=== PATIENT | male | born 1935 | race Caucasian/White ===

== ENCOUNTER → 2016-10-22 | Outpatient (CLI) | payer BC ==
[~2016-10-22] MED LIST: AMOX500C3 PO; ASPI325T39 PO; ATOR-22 PO; CHOL100010 PO; GLC/500 PO; POLY335019 PO
[2016-10-22 13:36] LABS: BASO % 0.2 %; BASO ABS # 0.01 K/uL (0-0.2); COMPLETE YES; EOS % 2.9 %; HEMATOCRIT 46.1 % (42-52); IG% 0.2 %; LYMPH % 25.9 %; LYMPH ABS # 1.45 K/uL (1.2-3.4); MEAN CELL VOLUME 102.7 fL (80-100); MEAN CORPUSCULAR HEMOGLOBIN 34.3 pg (25-34); MEAN CORPUSCULAR HGB CONC 33.4 g/dl (32-36); MONO % 8.6 %; NEUT % 62.2 %; PLATELET COUNT 155 K/uL (130-400); RED BLOOD COUNT 4.49 M/uL (4.7-6.1)
[2016-10-22 13:55] LABS: ESTIMATED AVERAGE GLUCOSE 134 mg/dl; HA1C FLAG Normal (Normal)
[2016-10-22 14:15] LABS: ALKALINE PHOSPHATASE 81 U/L (45-117); ALT/SGPT 20 U/L (12-78); AST/SGOT 16 U/L (15-37); BLOOD UREA NITROGEN 18 mg/dl (7-18); BUN/CREATININE RATIO 22.6 (10-20); CARBON DIOXIDE 28 mmol/L (21-32); CHLORIDE 106 mmol/L (98-107); CHOLESTEROL 127 mg/dl (0-200); CHOLESTEROL/HDL RATIO 1.9; CREATININE 0.78 mg/dl (0.60-1.40); GLUCOSE 124 mg/dl (70-99); HDL CHOLESTEROL 67 mg/dl; LDL CHOLESTEROL CALCULATED 51 mg/dl; POTASSIUM 4.2 mmol/L (3.5-5.1); SODIUM 141 mmol/L (136-145); TRIGLYCERIDES 46 mg/dl (0-150); VERY LOW DENSITY LIPOPROT CALC 9 mg/dl
[2016-10-22 14:25] LABS: ALB/GLOB RATIO 1.4 (0.9-2)
--- NOTE | 2016-10-27 13:51 | CODING QUERY MEDICAL NECESSITY ---
SUPPORTING DIAGNOSIS NEEDED Dr. Garcia, A supporting diagnosis is required for the test/procedure performed on this patient in order for us to be reimbursed by the patient's insurance. Please provide a supporting diagnosis for the following test/procedure listed below next to the test name along with your signature. *If there is no additional diagnosis for this patient that would support the following test/procedure please document that below next to the test/procedure. Test(s)/Procedure(s) that require a supporting diagnosis: * ([id number]) B12 VITAMIN LEVEL DIAGNOSIS: DATE OF SERVICE: 10/22/16 Provider Signature: Date: Thank you Jem Rodriguez [place] Information Management Once completed, please kindly fax back to [phone] For questions please call [phone]
== END | disposition home or self-care (01) ==
LOC: C.LABBC 09:57
PROVIDERS: ATTEND Internal Medicine Geriatric Medicine
DX: E11.9 Type 2 diabetes mellitus without complications (principal); E78.5 Hyperlipidemia, unspecified; R33.9 Retention of urine, unspecified; I25.10 Atherosclerotic heart disease of native coronary artery without angina pectoris; E55.9 Vitamin D deficiency, unspecified; K21.9 Gastro-esophageal reflux disease without esophagitis

== ENCOUNTER → 2017-11-09 | Outpatient (CLI) | payer BC ==
[2017-11-09 13:36] LABS: BASO % 0.2 %; BASO ABS # 0.01 K/uL (0-0.2); EOS ABS # 0.12 K/uL (0-0.5); HEMATOCRIT 47.7 % (42-52); HEMOGLOBIN 15.7 g/dL (14.0-18.0); IG# 0.02 K/uL (0.00-0.02); LYMPH % 30.2 %; LYMPH ABS # 1.79 K/uL (1.2-3.4); MEAN CELL VOLUME 101.9 fL (80-100); MEAN CORPUSCULAR HEMOGLOBIN 33.5 pg (25-34); MEAN CORPUSCULAR HGB CONC 32.9 g/dl (32-36); MEAN PLATELET VOLUME 10.3 fL (7.4-10.4); MONO % 6.1 %; MONO ABS # 0.36 K/uL (0.11-0.59); NEUT % 61.2 %; NEUT ABS # 3.63 K/uL (1.4-6.5); PLATELET COUNT 175 K/uL (130-400); RED CELL DISTRIBUTION WIDTH CV 12.9 % (11.5-14.5); RED CELL DISTRIBUTION WIDTH SD 47.9 fL (36.4-46.3); WHITE BLOOD COUNT 5.93 K/uL (4.8-10.8)
[2017-11-09 14:09] LABS: HEMOGLOBIN A1C 6.4 % (4.5-5.6)
[2017-11-09 14:15] LABS: ALBUMIN 3.9 gm/dl (3.4-5.0); ALT/SGPT 24 U/L (12-78); AST/SGOT 21 U/L (15-37); BLOOD UREA NITROGEN 21 mg/dl (7-18); CALCIUM 8.9 mg/dl (8.5-10.1); CARBON DIOXIDE 26 mmol/L (21-32); CHOLESTEROL 140 mg/dl (0-200); CREATININE 0.89 mg/dl (0.60-1.40); GLUCOSE 106 mg/dl (70-99); POTASSIUM 4.3 mmol/L (3.5-5.1); SODIUM 138 mmol/L (136-145)
[2017-11-09 14:26] LABS: ALKALINE PHOSPHATASE 89 U/L (45-117); LDL CHOLESTEROL CALCULATED 68 mg/dl; TOTAL PROTEIN 6.9 gm/dl (6.4-8.2)
== END | disposition home or self-care (01) ==
LOC: C.LABBC 11:13
PROVIDERS: ATTEND Internal Medicine Geriatric Medicine
DX: E11.9 Type 2 diabetes mellitus without complications (principal); I25.10 Atherosclerotic heart disease of native coronary artery without angina pectoris; M19.90 Unspecified osteoarthritis, unspecified site; Z95.2 Presence of prosthetic heart valve

== ENCOUNTER → 2018-02-18 | Outpatient (CLI) | payer BC ==
--- NOTE | 2018-02-18 12:34 | DIAGNOSTIC IMAGING REPORT ---
(LUIS MANUEL/BLAD)RETROPERITON COMP HISTORY: 82 years-old Male N28.1 Renal [id number] follow-up study in a patient with left renal cyst COMPARISON: Renal ultrasound 02/21/2016 TECHNIQUE: Multiple real-time sonographic images of the kidneys and bladder were obtained assessing grayscale appearance and color flow FINDINGS: Right kidney measures 10.4 cm in length and demonstrates mildly increased echogenicity of the renal parenchyma along with mild cortical thinning. No right-sided renal calculi, hydronephrosis or suspicious mass lesions. Left kidney measures 10.7 cm in length and is also mildly echogenic with mild diffuse cortical thinning. Previous noted cyst of the left kidney is not definitively seen on today's study. No left-sided renal calculi, hydronephrosis or suspicious mass lesions. Bilateral ureteral jets are noted. Prostamegaly causes mass effect upon the floor of the bladder. Mild wall thickening of the bladder, 4 mm with suggested trabeculation. IMPRESSION: 1. Suggested medical renal disease without renal calculi or hydronephrosis. 2. Previously noted cyst of the left kidney seen on study from 2015 is no longer identified. 3. Prostamegaly with bladder wall thickening and trabeculation suggests sequela of chronic bladder outlet obstruction. Correlate with urinalysis to exclude cystitis. The above report was generated using voice recognition software. It may contain grammatical, syntax or spelling errors. Electronically signed by: Tyler Haider M.D. 02/18/2018 12:33 PM Dictated Date/Time: 02/18/2018 12:30 PM
== END | disposition home or self-care (01) ==
LOC: C.ULTR 11:36
PROVIDERS: ATTEND Urology
DX: N40.0 Benign prostatic hyperplasia without lower urinary tract symptoms (principal)

== ENCOUNTER → 2018-03-08 | Outpatient (CLI) | payer BC | END | disposition home or self-care (01) | LOC: C.PATHSPEC 17:35 | PROVIDERS: ATTEND Family Medicine Adult Medicine | DX: L98.9 Disorder of the skin and subcutaneous tissue, unspecified (principal) ==

== ENCOUNTER 2023-04-27 07:31 | Observation (INO) ==
[~2023-04-27 07:31] MED LIST changes: -AMOX500C3 PO; -ASPI325T39 PO; -ATOR-22 PO; +BACITRACIN OINT 14 GM TUBE ONE; -CHOL100010 PO; -GLC/500 PO; +LIDOCAINE 1% LOCAL 20 ML VIAL ONE; -POLY335019 PO; +VANCOMYCIN HCL 1000MG/20ML VIAL ONE; +WATER, STERILE FOR INJ 10 ML VIAL ONE
[2023-04-27] MEDS ORDERED: MIDAZOLAM HCL 5 MG/ML 1 ML VIAL ONE (08:20)
[2023-04-27] MEDS ORDERED: ceFAZolin 330 MG/ML 1 GM VIAL ONE (08:20)
[2023-04-27] MEDS ORDERED: fentaNYL citrate PF 100 MCG/2 ML VIAL ONE (08:20)
--- NOTE | 2023-04-27 08:32 | History & Physical Bridge Note ---
Date of Service April 27, 2023 History & Physical Bridge Note I have examined the patient, reviewed the History & Physical and in the interval since the performance of the History & Physical I have noted the following changes of clinical significance: no changes noted. I reviewed the indications, procedure, risks and alternatives with the patient, and answered all questions. Patient understands and agrees to the procedure. Consent obtained. I also reviewed the risks and use of sedation, patient understands and consent obtained.
--- NOTE | 2023-04-27 08:34 | Pre Anesthesia Assessment ---
Date of Service April 27, 2023 Pre Sedation Assessment Vital Signs Pulse Resp BP Pulse Ox O2 Del Method 04/27/23 07:44 66 20 134/82 96 Room Air Cardiovascular + irregularly irregular no murmur Respiratory normal respiratory effort, lungs clear to auscultation Pre-Sedation Airway Assessment Smoking Status: Never smoker Short, Thick Neck: No Thyromental Distance: > or= 3.5 Finger Breadths Oral Cavity: + Dentures Mallampati Class: III ASA: ASA3 NPO Status Date of Last Intake of Fluids: 04/26/23 Time of Last Intake of Fluids: 23:50 Date of Last Intake of Solid Food: 04/26/23 Time of Last Intake of Solid Foods: 23:50 Procedure Planning Contraindications for Sedation: none Current Medications Reviewed: Yes Notes The planned sedation has been discussed with the patient. Informed Consent was obtained. I have identified the patient, determined the appropriateness of sedation and have assessed the patient immediately prior to the procedure. All medicine(s) and interventions are by my order.
[2023-04-27] MEDS ORDERED: KETOROLAC TROMETHAMINE 10 MG TABLET PO PRN (10:11)
[2023-04-27] MEDS ORDERED: ACETAMINOPHEN 325 MG TAB PO PRN (10:11)
--- NOTE | 2023-04-27 10:11 | Electrophysiology Report ---
Date of Service April 27, 2023 Electrophysiology Procedure Electrophysiology Procedure Report Preoperative diagnosis: Severe bradycardia Postoperative diagnosis: Same Procedure: Left subclavian venogram Dual-chamber left bundle branch pacemaker implantation Surgeon: Chema Blood MD Estimated blood loss: 20 cc Complications: None Disposition: Outreach Representative recovery Procedure details: After obtaining informed consent for the procedure, the patient was brought to the laboratory and prepped and draped in the standard sterile manner. Dye was injected the left arm IV site to opacify the left subclavian vein. The subclavian vein was identified and found to be free of obstruction. The left prepectoral region was anesthetized with 1% lidocaine local anesthetic and left axillary venipuncture was performed by percutaneous technique and a guidewire placed through the left subclavian vein into the superior vena cava. The area was further infiltrated with 1% lidocaine local anesthetic and a 5 cm incision was made parallel to the left clavicle and 2 cm below it and carried down to the anterior pectoralis fascia. A pacemaker pocket was formed by blunt dissection anterior to the pectoralis fascia and a vancomycin-soaked sponge was placed in the pocket. An 8.5 [place] Medtronic lead introducer was placed over the guidewire into the left subclavian vein, the dilator and guidewire were removed and a bipolar active fixation steroid tipped atrial lead was advanced through the introducer into the superior vena cava. A guidewire was placed through the introducer and the introducer was stripped from the lead and guidewire. A 7 [place] Medtronic lead introducer was placed over the guidewire into the left subclavian vein, the dilator and guidewire were removed. A C315 His 02 septal sheath was advanced through the introducer over a guidewire and advanced into the right ventricular outflow tract. The guidewire and dilator were removed and the sheath was positioned in a mid septal location. A bipolar active fixation steroid tipped ventricular lead was advanced through the introducer and rotated to advance the screw into the septum. Pacing and sensing thresholds were evaluated in bipolar configuration and are noted on the data sheet. The septal sheath was stripped away from the lead. A guidewire was placed back through the introducer and the introducer was removed over the the guidewire. The atrial lead was positioned in the region of the atrial appendage, which did not seem to be present, and the screw extended fixing the lead in position. Sensing threshold was evaluated in bipolar configuration (the patient was in atrial fibrillation and pacing cannot be evaluated) and is recorded on the implant data sheet. Once the leads were in position they were attached to the anterior pectoralis fascia using 2 sutures of 2-0 silk around each lead collar. The vancomycin soaked sponge was removed from the pocket, hemostasis was obtained, the pacemaker was attached to the leads and placed in the pocket with the leads coiled beneath it. The incision was closed with a running double subcutaneous closure of 3-0 Vicryl absorbable suture, followed by running subcuticular skin closure of 4-0 Vicryl absorbable suture. Bacitracin ointment was placed on the incision and a dressing applied. [facility] [place] Electrophysiology codes Indication for Procedure (1) Bradycardia: Pacing Procedure 1: Pacin Insert/Replace Pacer A & V Miscellaneous Procedures Procedure 1: EP Miscellaneous: 95755 Contrast injection for venography Procedure 2: EP Miscellaneous: 71905-64 Vengraphy, extremity PG Moderate Sedation Codes Moderate Sedation Codes Procedure 1: Sedation/Anesthesia: 57318 Mod Sedation by the same physician;Init15 Min Child Age 5 & Up Procedure 2: Sedation/Anesthesia: 77820 Mod Sedation by the same physician; Ea [id number] Minutes
--- NOTE | 2023-04-27 14:05 | Post Anesthesia Assessment ---
Date of Service April 27, 2023 Post Sedation Assessment Vital Signs Pulse Resp BP Pulse Ox O2 Del Method 04/27/23 12:30 78 16 128/89 96 Room Air 04/27/23 12:00 65 16 114/75 96 Room Air 04/27/23 11:30 64 16 115/72 96 Room Air 04/27/23 11:00 65 16 94/61 L 96 Room Air 04/27/23 10:45 64 16 98/65 L 96 Room Air 04/27/23 10:30 68 16 107/67 96 Room Air 04/27/23 10:15 60 16 118/76 96 Room Air 04/27/23 07:44 66 20 134/82 96 Room Air Recovery Score Activity: Moves 4 extremities Respiration: Deep Breath/Cough Circulation: +/-20% PreAnes Value Consciousness: Fully Awake Oxygen Saturation: > 92% On Room Air Post Anesthesia Score: 10 Discharge Sedation Level of Care: Fast Track Phase II Post Sedation Plan On clinical assessment, the patient appears to have tolerated the sedation without complications. Patient is recovering as anticipated. Patient will continue to be monitored by nursing and may be discharged when sedation discharge criteria are met per below protocol. Upon Completions of procedure up to 15 minutes continue every 5 minute vital signs and the P.A.R. score; then discharge to a Phase I or Fast Track to Phase II per the following guidelines: * Discharge Patient to appropriate Phase II area if PAR is 8 or greater or return to pre- procedure baseline. The post - procedure orders will be as directed. * If PAR score is less than 8 or not return to pre-procedure baseline then patient will follow Phase I monitoring till PAR is reached for Phase II. The Phase I may be done in procedure room or may call to secure a Phase I area. * If naloxone or flumazenil are used for reversal, hold in Phase I for continued monitoring from when last reversal dose was given for a minimum of 60 minutes or longer pending the nurse and/or physician discretion of patient condition before discharge to Phase II. Please call the Sedation Physician to re-evaluate and complete post-note for discharge to Phase II area. Do NOT discharge from procedure sedation or Phase 1 until post- sedation evaluation note is complete by procedure /sedation MD Sedation Discharge Instructions to be given to the patient at discharge to home.
--- NOTE | 2023-04-27 15:50 | Electrocardiogram Report ---
Test Reason : Blood Pressure : / mmHG Vent. Rate : 071 BPM Atrial Rate : 267 BPM P-R Int : 000 ms QRS Dur : 084 ms QT Int : 408 ms P-R-T Axes : 000 003 049 degrees QTc Int : 443 ms Atrial fibrillation with ventricular-paced complexes Biventricular pacemaker detected Septal infarct (cited on or before 12-MAR-2023) Abnormal ECG When compared with ECG of 12-MAR-2023 09:55, (unconfirmed) Electronic ventricular pacemaker now present Confirmed by Dany Mobley ([id number]) on 04/27/2023 3:50:36 PM Referred By: Chema Blood Confirmed By:Dany Mobley
--- NOTE | 2023-04-28 08:19 | XRay Report ---
XR chest 2V PA/lateral HISTORY: Status post pacemaker placement. EXACT TIME ORDERED Evaluate for pneumothorax and l COMPARISON: Chest 05/13/2018. FINDINGS: Interval placement left-sided dual-chamber pacemaker. The leads appear intact. No pneumotho rax. There are poststernotomy changes and cardiac valve prosthesis. Heart is mildly enlarged. There i s mild central pulmonary vascular congestion without overt edema. No pleural effusions. No focal lung consolidations to suggest pneumonia. IMPRESSION: 1. Interval placement of a left-sided dual-chamber pacemaker. No pneumothorax. 2. Cardiomegaly and mild pulmonary vascular congestion. ACT 112: Negative or not required by law. Electronically signed by: Shimon Gallardo M.D. 04/28/2023 8:18 AM
[2023-04-28] MEDS ORDERED: DOCUSATE SODIUM 100 MG CAP PO SCH (09:00)
[2023-04-28] MEDS ORDERED: APIXABAN 5 MG TABLET PO SCH (09:00)
[2023-04-28] MEDS ORDERED: lisinopril 2.5 MG TAB PO SCH (09:00)
[2023-04-28] MEDS ORDERED: LORATADINE 10 MG TAB PO SCH (09:00)
[2023-04-28] MEDS ORDERED: ATORVASTATIN 20 MG TAB PO SCH (09:00)
[2023-04-28] MEDS ORDERED: CYANOCOBALAMIN (B-12) 2,500 MCG TABLET PO SCH (09:00)
[2023-04-28] MEDS ORDERED: FINASTERIDE 5 MG TAB PO SCH (09:00)
--- NOTE | 2023-04-28 09:20 | Cardiology Progress Note ---
Date of Service April 28, 2023 Assessment & Plan (1) Status post placement of cardiac pacemaker: Plan: 1. Postop day #1: The pacer is working well, the site looks good and the leads are in good position on x-ray. He is stable for discharge today. Admission and Anticipated Discharge Date Admission Date: April 27, 2023 Subjective He is feeling well today, minimal incisional discomfort, no chest pain or shortness of breath. Physical Exam Physical Exam: The incision is clean and dry, no ecchymosis, erythema or swelling. Lungs are clear Cardiac rhythm is regular with no rub Results & Data Vital Signs (Past 12 Hours) Vital Signs Temp Pulse Pulse Resp BP Pulse Ox O2 Del Method 04/28/23 07:55 37.0 C 64 19 112/75 95 Room Air 04/27/23 23:30 72 04/28/23 02:42 36.7 C 60 18 128/76 96 Room Air 04/27/23 22:53 36.5 C 68 18 125/72 96 Room Air Diagnostic Findings 1. Postop ECG: Atrial fibrillation, appropriate intermittent ventricular pacing. 2. Telemetry: Normal pacemaker function 3. Pacemaker evaluation: Excellent pacing and sensing characteristics. 4. Chest x-ray: Good lead position, no pneumothorax PG Care Time/CCT Total # of Minutes Spent Total Time Spent with Patient: Total time spent is greater than 50% in coordination of care (as documented) at patient's floor/unit and/or counseling patient: Coding Level of Care Code 72245 Post Operative Follow-Up Diagnoses Status post placement of cardiac pacemaker Z95.0 CPT Codes Dual Lead Pacemaker System - 17217 ([id number])
--- NOTE | 2023-04-28 09:48 | Discharge Summary ---
Date of Service April 28, 2023 Admission HPI Per Admitting Provider This is an 87-year-old male who has a history of diabetes mellitus, osteoarthritis, BPH as well as coronary disease and aortic stenosis. 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 around 2007. He has done well clinically since then and to my knowledge does not follow-up with a local autism teacher. To my knowledge she has no prior history of atrial fibrillation. He had been having vague symptoms which could represent symptomatic bradycardia and he had been identified as having second-degree AV block therefore he was evaluated for the need for a pacemaker in August 2022. I discussed symptoms with him and it was unclear. He reported having rare episodes of lighth eadedness, when pressed he told me it happens every several months, suggesting that he had only had a few episodes but it sounded as though he had more than that. He described these episodes as occurring with strenuous activity, the example he gives is shopping where after some time he will feel as though he should sit down but is able to continue shopping. His evaluation included an electrocardiogram on July 25, 2022 which shows sinus rhythm with premature atrial beats and premature ventricular beats and first-degree AV block. An echocardiogram done August 14, 2022 shows normal left ventricular size and function with an ejection fraction of 55 to 60%, mild concentric left ventricular hypertrophy and a bioprosthetic aortic valve which is functioning properly. He does have mild mitral regurgitation. 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 The heart rate ranged from 28 bpm (2-1 AV block in the morning) to 84 bpm with an average of 56 bpm. He was in AV block for about 18% of the recording with the longest pause being 2.9 seconds. He had 4.1% PVCs. He tells me that he did not have symptoms of lightheadedness while wearing the monitor. With minimal and vague symptoms and no clear bradycardia requiring pacemaker implantation we elected to follow with repeat monitoring. An electrocardiogram done March 12, 2023 showed atrial fibrillation with a controlled ventricular response, we had not identified atrial fibrillation before but he was asymptomatic, had a history of frequent premature beats and perhaps he had paroxysmal atrial fibrillation and with an irregular rhythm it may not have been recognized on exam. He was started on Eliquis 5 mg twice a day and a Holter monitor was arranged. A Holter monitor was worn from March 12, 2023 through March 16, 2023, the rhythm was atrial fibrillation throughout with the heart rate ranging from 30 to 154 bpm with an average of 64. There were 124 pauses with the longest being 6.3 seconds at 6:30 in the morning. There were no clear symptoms related to these. There were also very frequent premature ventricular beats (15%) with 200 ventricular runs with the longest being 5 beats. It was recommended that he have a pacemaker implanted, and he is agreeable. He has evidently been feeling relatively well from the cardiovascular standpoint although he notes that he has intermittent elevated blood pressure and he has had some difficulty with his B12. 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 He has had no presyncope or syncope. He does not have an awareness of his atrial fibrillation but is doing well on Eliquis without difficulty with bleeding. Admission Exam (Per Admitting) Constitutional Constitutional: Alert, cooperative and in no distress. HEENT: Unremarkable Neck: No jugular venous distention, carotid pulses are normal and equal bilaterally without bruits. Pulmonary: Clear to auscultation bilaterally. Cardiac: Irregular rhythm with a soft crescendo decrescendo murmur at the base, no gallop or rub. Abdomen: Soft, nontender with normal bowel sounds. Extremities: +1 bilateral pretibial edema. Neurologic: No focal findings. Gait is steady with the use of a walker. Skin: No rash, ecchymoses or petechiae. His extremities show signs of chronic venous stasis. Discharge Data Procedures Performed Operation Date: 04/27/23 08:00 Actual Procedures p Pacer with A/V Leads (Dual) - Chema lBood MD s Venogram, Unilateral - Chema Blood MD Hospital Course (1) Bradycardia: Plan With significant bradycardia and risk for loss of consciousness he had a dual- chamber pacemaker implanted on April 27, 2023 without difficulty. This morning he is doing well, he has no difficulty at the incision and he feels well. He is in atrial fibrillation, dual-chamber pacemaker was chosen to allow return to sinus rhythm in the future but that will require a month of anticoagulation before we would consider cardioversion. He is stable for discharge. Coding Level of Care Code None Diagnoses Bradycardia R00.1
== END 2023-04-28 10:42 | disposition home or self-care (01) ==
LOC: 2S 07:31 → EP 07:31

== ENCOUNTER 2023-05-05 02:26 | Observation (INO) ==
[2023-05-05 03:17] LABS: Albumin Globulin Ratio 1.7 (0.9-2); Albumin Level 4.3 gm/dl (3.4-5.0); BUN Creatinine Ratio 22.5 (10-20); Bilirubin,Total 0.9 mg/dl (0.2-1.0); Calcium 9.4 mg/dl (8.6-10.3); Creatinine Clr Calc Pharmacy 54.9 ml/min; Est GFR (African American) 75.7 ml/min; Est GFR (Non-African American) 65.3 ml/min; Globulin 2.6 gm/dl (2.5-4.0); Magnesium 1.8 mg/dl (1.7-2.4); Potassium 4.8 mmol/L (3.5-5.1); Total Protein 6.9 gm/dl (6.0-8.3)
[2023-05-05 03:23] LABS: Troponin I High Sensitivity 10.4 pg/ml (0-20)
[2023-05-05 03:29] LABS: Basophils # (auto) 0.03 K/uL (0.00-0.20); Basophils % (auto) 0.3 %; Eosinophils # (auto) 0.02 K/uL (0.00-0.50); Eosinophils % (auto) 0.2 %; Hematocrit (blood only) 43.2 % (42.0-52.0); Hemoglobin 14.5 g/dl (14.0-18.0); Immature Granulocytes # (auto) 0.03 K/uL (0.01-0.20); Immature Granulocytes % (auto) 0.3 %; Lymphocytes # (auto) 0.74 K/uL (1.20-3.40); Lymphocytes % (auto) 7.3 %; Mean Corpuscular Hemoglobin 33.5 pg (25.0-34.0); Mean Corpuscular Hgb Conc 33.6 g/dL (32.0-36.0); Mean Corpuscular Volume 99.8 fL (80.0-100.0); Mean Platelet Volume 10.2 fL (9.4-12.4); Monocytes # (auto) 0.64 K/uL (0.11-0.59); Monocytes % (auto) 6.3 %; Neutrophils # (auto) 8.72 K/uL (1.40-6.50); Neutrophils % (auto) 85.6 %; Platelet Count 146 K/uL (130-400); RDW Coefficient of Variation 13.1 % (11.5-14.5); RDW Standard Deviation 48.1 fL (36.4-46.3); Red Blood Count 4.33 M/uL (4.70-6.10); White Blood Count 10.18 K/ul (4.8-10.8)
[2023-05-05 03:32] LABS: Thyroid Stimulating Hormone 5.941 uIu/ml (0.300-4.500)
[2023-05-05 04:09] LABS: T4 Free Thyroxine 0.77 ng/dl (0.61-1.60)
--- NOTE | 2023-05-05 06:06 | History & Physical Report ---
Date of Service May 05, 2023 Assessment & Plan (1) Ambulatory dysfunction: Plan: -PT/OT evaluation -Case management evaluation - patient may need to have a home evaluation to ensure that his home is safe to return to (2) Atrial fibrillation, controlled: Plan: -Pacer in place -Continue Apixaban (3) Hyperlipidemia: Plan: -Continue Atorvastatin (4) BPH (benign prostatic hyperplasia): Plan: -Continue Finasteride History of Present Illness Chief Complaint: fall Primary Care Provider: Kapil Dee DO Patient is an 87yo male with history of CAD, CHF, AF, DM and aortic stenosis s/p bovine aortic valve replacement presenting from home after a fall. Patient reports she ate his dinner around 12:00 tonight after which he stood up, lost his balance and tripped over some objects on the floor. He fell slowly onto his kitchen floor. He reports he didn't hit his head or lose consciousness. He den ies chest pain, palpitations, cough or SOB. He was unable to get up from the floor due to weakness as well as pain in his back. He called EMS. Police/EMS noted that patient's home was in a state of disarray, concern for piles of books and clutter as well as the possibility of mold. Patient admits that his house is a little bit chaotic now. He lives alone in a large, older home in [place]. He has been trying to clear out old papers and books an dis trying to get his bathroom updated to a walk-in shower. Patient ideally wants to return to his home and continue to live independently. In the ER he is afebrile, HD stable. Allergies Allergy/AdvReac Type Severity Reaction Status Date / Time No Known Drug Allergies Allergy Unknown Unknown Verified 04/27/23 08:18 Home Medications Medication Instructions Recorded Confirmed Type amoxicillin 500 mg capsule 2,000 mg PO UD 03/24/19 05/05/23 History docusate sodium 100 mg capsule 100 mg PO DAILY #30 caps 12/03/22 05/05/23 Rx atorvastatin 20 mg tablet (Lipitor) 20 mg PO DAILY #90 tabs 03/09/23 05/05/23 Rx finasteride 5 mg tablet 5 mg PO DAILY #90 tabs 03/09/23 05/05/23 Rx lisinopril 2.5 mg tablet 2.5 mg PO DAILY #90 tabs 03/09/23 05/05/23 Rx loratadine 10 mg tablet 10 mg PO DAILY #30 tabs 03/09/23 05/05/23 Rx apixaban 5 mg tablet (Eliquis) 5 mg PO BID #60 tabs 03/12/23 05/05/23 Rx mecobalamin (vitamin B12) 2,500 2,500 mcg PO DAILY #90 tabs 04/03/23 05/05/23 Rx mcg chewable tablet Past Med/Surg History Medical History BPH (benign prostatic hyperplasia) Colitis Coronary artery disease Generalized osteoarthritis Primarily of knees bilaterally. Managed with APAP PRN Heart failure with preserved ejection fraction Echo 07/2022 stable no changes History of urinary retention Hyperlipidemia Sensorineural hearing loss (SNHL) of both ears >AD Severe aortic stenosis (~2007) s/p AVR (2007). Sexual dysfunction Surgical History H/O aortic valve replacement (~2007) Echo 07/2022 no change History of colonoscopy History of local excision of skin lesion S/P aortic valve replacement (~2007) Status post placement of cardiac pacemaker Family History Unknown No pertinent family history Other No family history of allergies No family history of bleeding disorder Denies family history of Hearing loss Heart disease Cancer Hypertension Stroke Asthma Social History Smoking Status: Never smoker Second Hand Exposure: No; Do You Dip or Chew Tobacco: No; Hx Alcohol Use: Yes Alcohol type: wine and hard liquor Alcohol Intake Frequency: 4 or More x per/Week Alcohol Intake Frequency Comment: 2-3 drinks per day with a meal Hx Substance Use: No Preferred Language: Serbian Communication Ability: Effective Visual Impairment: Limited Hearing Ability: Hard of Hearing Retail Attendant Required: No Beliefs That Will Affect Care: None marital status: Single Current Living Situation: Alone current occupational status: retired How many Children do You have: 0 Feels Safe at Home: Yes Childhood Exposure to Second-Hand Smoke: No Diet: regular caffeine: Yes (drinks coffee or tea daily ) Dental Care, Regularly: Yes Physical Activity Frequency: Does not Exercise Seatbelt Use: always Sunscreen Use: Yes Assistive Devices: Cane and Walker Review of Systems Review of Systems: All systems reviewed & are unremarkable except as noted in HPI & below Physical Exam Physical Exam: General: patient resting comfortably, NAD, non-toxic in appearance, AA&O x 4 Skin: warm, dry, intact, no rashes or lesions HEENT: NC/AT, PERRL, EOMI, anicteric sclera, conjunctiva without injection, external ear normal to inspection and nontender, nares patent, moist mucus membranes, dentition intact, no oropharyngeal lesions, neck supple, trachea midline, no LAD, no thyromegaly, no JVD Heart: +S1/S2, regular, 3/6 LICO at right 2nd ICS. court monitor with AF, paced beats as well as frequent PVCs Lungs: equal air entry bilaterally, no rales/rhonchi/wheezes Abd: +BS, soft, NT/ND, no masses/organomegaly/ascites Ext: warm, 2+ pulses in UE/LE bilaterally, no clubbing/cyanosis or edema Neuro: nonfocal, patient AA&O x 4, speech intact, no facial droop, moving all extremities on command with equal strength 5/5 Results & Data Results & Data Vital Signs (Past 12 Hours) Vital Signs Temp Pulse Resp BP Pulse Ox O2 Del Method 05/05/23 02:36 86 05/05/23 02:34 37.3 C 77 22 149/106 H 91 Room Air Laboratory Results Laboratory Results WBC 10.18 K/ul (4.8-10.8) 05/05/23 02:43 RBC 4.33 M/uL (4.70-6.10) L 05/05/23 02:43 Hgb 14.5 g/dl (14.0-18.0) 05/05/23 02:43 Hct 43.2 % (42.0-52.0) 05/05/23 02:43 MCV 99.8 fL (80.0-100.0) 05/05/23 02:43 MCH 33.5 pg (25.0-34.0) 05/05/23 02:43 MCHC 33.6 g/dL (32.0-36.0) 05/05/23 02:43 RDW Std Deviation 48.1 fL (36.4-46.3) H 05/05/23 02:43 RDW Coeff of Ruth 13.1 % (11.5-14.5) 05/05/23 02:43 Plt Count 146 K/uL (130-400) 05/05/23 02:43 MPV 10.2 fL (9.4-12.4) 05/05/23 02:43 Immature Gran % (Auto) 0.3 % 05/05/23 02:43 Neut % (Auto) 85.6 % 05/05/23 02:43 Lymph % (Auto) 7.3 % 05/05/23 02:43 [place] % (Auto) 6.3 % 05/05/23 02:43 Eos % (Auto) 0.2 % 05/05/23 02:43 Baso % (Auto) 0.3 % 05/05/23 02:43 Neut # (Auto) 8.72 K/uL (1.40-6.50) H 05/05/23 02:43 Lymph # (Auto) 0.74 K/uL (1.20-3.40) L 05/05/23 02:43 [place] # (Auto) 0.64 K/uL (0.11-0.59) H 05/05/23 02:43 Eos # (Auto) 0.02 K/uL (0.00-0.50) 05/05/23 02:43 Baso # (Auto) 0.03 K/uL (0.00-0.20) 05/05/23 02:43 Immature Gran # (Auto) 0.03 K/uL (0.01-0.20) 05/05/23 02:43 Sodium 139 mmol/L (136-145) 05/05/23 02:43 Potassium 4.8 mmol/L (3.5-5.1) 05/05/23 02:43 Chloride 108 mmol/L (98-107) H 05/05/23 02:43 Carbon Dioxide 25 mmol/L (21-32) 05/05/23 02:43 Anion Gap 6 (3-11) 05/05/23 02:43 BUN 23 mg/dl (6-23) 05/05/23 02:43 Creatinine 1.02 mg/dl (0.6-1.4) 05/05/23 02:43 Est Cr Clr Drug Dosing 54.9 ml/min 05/05/23 02:43 Est GFR ( Amer) 75.7 ml/min 05/05/23 02:43 Est GFR (Non-Af Amer) 65.3 ml/min 05/05/23 02:43 BUN/Creatinine Ratio 22.5 (10-20) H 05/05/23 02:43 Glucose 162 mg/dl (70-99(Fasting)) H 05/05/23 02:43 Calcium 9.4 mg/dl (8.6-10.3) 05/05/23 02:43 Magnesium 1.8 mg/dl (1.7-2.4) 05/05/23 02:43 Total Bilirubin 0.9 mg/dl (0.2-1.0) 05/05/23 02:43 AST 23 U/L (13-39) 05/05/23 02:43 ALT 13 U/L (7-52) 05/05/23 02:43 Alkaline Phosphatase 204 U/L (34-104) H 05/05/23 02:43 Troponin I High Sens 10.4 pg/ml (0-20) 05/05/23 02:43 Total Protein 6.9 gm/dl (6.0-8.3) 05/05/23 02:43 Albumin 4.3 gm/dl (3.4-5.0) 05/05/23 02:43 Globulin 2.6 gm/dl (2.5-4.0) 05/05/23 02:43 Albumin/Globulin Ratio 1.7 (0.9-2) 05/05/23 02:43 TSH 5.941 uIu/ml (0.300-4.500) H 05/05/23 02:43 Free T4 0.77 ng/dl (0.61-1.60) 05/05/23 02:43 Ethyl Alcohol mg/dL < 10.0 mg/dl (<10.0) 05/05/23 02:43 PG Care Time/CCT Total # of Minutes Spent Total Time Spent with Patient: Total time spent is greater than 50% in coordination of care (as documented) at patient's floor/unit and/or counseling patient: Coding Level of Care Code 12767 INT INP/OBS CARE 2/55MIN Diagnoses Ambulatory dysfunction R26.2 Atrial fibrillation, controlled I48.91 Hyperlipidemia E78.5 BPH (benign prostatic hyperplasia) N40.0
[2023-05-05] MEDS ORDERED: ONDANSETRON INJ 2 MG/ML 2 ML VIAL IV PRN (06:11)
[2023-05-05] MEDS ORDERED: ACETAMINOPHEN 325 MG TAB PO PRN (06:11)
--- NOTE | 2023-05-05 06:38 | CT Scan Report ---
CT head/brain wo con CLINICAL HISTORY: fall Technique: Contiguous axial CT images of the head were acquired from the base of the skull to the james nayla without intravenous contrast administration. Images were viewed in brain, subdural and [facility]. Automated dose lowering techniques and/or adjustment according to patient size were utilized for this exam. Comparison: None available at the time of this dictation. Findings: Areas of decreased attenuation are present in the periventricular and subcortical white matter bilate rally consistent with small vessel ischemic disease. Generalized cerebral atrophy with commensurate e nlargement of the ventricles, sulci, and cisterns is also present. There is no acute intracranial hem orrhage or evidence of acute territorial infarction. No shift of the midline structures, mass effect, or extra-axial abnormalities are shown. Atherosclerotic calcifications are present in the intracran ial segments of the internal carotid arteries. Imaged portions of the paranasal sinuses and mastoid air cells are clear. The orbits appear normal. There are no acute fractures of the calvaria or scalp swelling. Impression: No acute intracranial hemorrhage, no evidence of acute territorial infarction or other acute intracra nial disease process. ACT 112: Negative or not required by law. Electronically signed by: Nate Gibbs M.D. 05/05/2023 6:35 AM
--- NOTE | 2023-05-05 07:13 | XRay Report ---
XR chest 1V portable HISTORY: 87 years-old Male weakness acute weakness COMPARISON: 04/28/2023 TECHNIQUE: AP view of the chest FINDINGS: Cardiac silhouette is enlarged. Median sternotomy. Dual-lead left subclavian pacer. No pneumothorax, pleural effusion or airspace consolidation. Pulmonary vascular congestion. Degenerative changes of th e shoulders and spine. IMPRESSION: Cardiomegaly with pulmonary vascular congestion. ACT 112: Negative or not required by law. The above report was generated using voice recognition software. It may contain grammatical, syntax o r spelling errors. Electronically signed by: Artemio Haider M.D. 05/05/2023 7:11 AM
[2023-05-05] MEDS: FINASTERIDE 5 MG TAB PO SCH (08:45)
[2023-05-05] MEDS: DOCUSATE SODIUM 100 MG CAP PO SCH (08:45)
[2023-05-05] MEDS: LORATADINE 10 MG TAB PO SCH (08:45)
[2023-05-05] MEDS: lisinopril 2.5 MG TAB PO SCH (08:45)
[2023-05-05] MEDS: APIXABAN 5 MG TABLET PO SCH ×2 (08:46→22:15)
[2023-05-05] MEDS: ATORVASTATIN 20 MG TAB PO SCH (08:46)
--- NOTE | 2023-05-05 08:57 | Electrocardiogram Report ---
Test Reason : Blood Pressure : / mmHG Vent. Rate : 085 BPM Atrial Rate : 000 BPM P-R Int : 000 ms QRS Dur : 092 ms QT Int : 370 ms P-R-T Axes : 000 -07 091 degrees QTc Int : 440 ms Atrial fibrillation with occasional ventricular-paced complexes and with premature ventricular or janet rrantly conducted complexes Abnormal ECG When compared with ECG of 27-APR-2023 13:44, Vent. rate has increased BY 14 BPM Confirmed by Owen Nieto ([id number]) on 05/05/2023 8:56:53 AM Referred By: REFERRED SELF Confirmed By:Owen Nieto
--- NOTE | 2023-05-05 15:37 | Hospitalist Progress Note ---
Date of Service May 05, 2023 Assessment & Plan (1) Ambulatory dysfunction: Plan: Continue PT and OT while hospitalized. He may require inpatient rehabilitation at the time of discharge. Supportive care. (2) Atrial fibrillation, controlled: Plan: Currently paced rhythm. Continue Eliquis (3) Hyperlipidemia: Plan: Stable. Continue Atorvastatin (4) BPH (benign prostatic hyperplasia): Plan: Stable. Continue Finasteride Plan To be determined. He may require IPR placement at discharge Admission and Anticipated Discharge Date Admission Date: May 05, 2023 Subjective Alert and oriented. No acute distress. Occupational Therapy has seen the patient and eventual discharge to inpatient rehabilitation is recommended if he does not improve significantly. No fractures seen on multiple x-rays on admission. He did fall at home and was unable to stand back up. He lives a lone. Review of Systems Review of Systems: Constitutional-no fever or chills ENT-no blurred vision, no double vision, no epistaxis, no sore throat Respiratory-no cough, no wheezing, no shortness of breath Cardiac-no palpitations, no chest pain, no syncope GI-no nausea, vomiting, diarrhea, melena, hematochezia -no urinary retention, no urinary incontinence, no dysuria, no hematuria Musculoskeletal-no joint pain, no muscle tenderness Skin-no bruising, no rashes, no pruritus Neuro-no isolated weakness, no paresthesia, no weakness Psych-no depression, no anxiety Physical Exam Physical Exam: General-alert and oriented x3, no fevers, no chills HEENT-head atraumatic and normocephalic, pupils equal and reactive to light, extraocular muscles intact Neck-no lymphadenopathy or thyromegaly, trachea midline Chest-clear to auscultation percussion. No rales wheezing or rhonchi Cardiac-regular rate and rhythm, normal S1 and S2 Abdomen-normal bowel sounds, nontender, no hepatosplenomegaly Extremities-no cyanosis, clubbing, or edema Neuro-cranial nerves II through XII intact, motor and sensory function within normal limits, strength symmetrical with generalized weakness, no focal deficits Psych-normal affect, normal mood Results & Data Results & Data Vital Signs (Past 12 Hours) Vital Signs Pulse Pulse Resp BP Pulse Ox O2 Del Method O2 Flow Rate 05/05/23 08:44 71 18 145/82 H 92 Room Air 92 05/05/23 08:21 66 18 125/64 97 Room Air 05/05/23 06:32 61 05/05/23 04:34 67 16 133/92 95 Room Air Laboratory Results 05/05/23 02:43 05/05/23 02:43 PG Care Time/CCT Total # of Minutes Spent Total Time Spent with Patient: Total time spent is greater than 50% in coordination of care (as documented) at patient's floor/unit and/or counseling patient: Coding Level of Care Code 43307 SUB INP/OBS CARE 3/50MIN Diagnoses Ambulatory dysfunction R26.2 Atrial fibrillation, controlled I48.91 Hyperlipidemia E78.5 BPH (benign prostatic hyperplasia) N40.0
[2023-05-05] MEDS ORDERED: INFLUENZA VACCINE HIGH-DOSE (HD-IIV4) PF 65+ 0.7mL SYR IM ONE (21:00)
[2023-05-05 22:31] LABS: Appearance Urine Clear (Clear); Bacteria Urine Automated Negative (Negative); Bilirubin Urine Negative (Negative); Blood Urine Negative (Negative); Color Urine Yellow; Glucose Urine UA Negative (Negative); Ketones Urine Negative (Negative); Leukocyte Esterase Urine 1+ (Negative); Nitrite Urine Negative (Negative); Protein Urine Trace (Negative); RBC Urine Automated 0-4 /hpf (0-4); Specific Gravity Urine 1.018 (1.000-1.030); Urobilinogen Urine Negative (Negative); pH Urine 6.5 (4.5-7.5)
--- NOTE | 2023-05-06 07:34 | Emergency Department Note ---
Impression & Plan Fall, Imbalance, Unsatisfactory living conditions ED Provider Note CHIEF COMPLAINT: Fall HISTORY OF PRESENT ILLNESS: This 87-year-old male patient past medical history of atrial fibrillation, type 2 diabetes, coronary artery disease, second-degree AV block, heart failure, history of aortic valve replacement, hyperlipidemia, BPH, ambulatory dysfunction, B12 deficiency presents to the emergency department after a fall in his home. The patient states he was not able to get up off of the floor once he fell. He was trying to carry a glass of wine across the living room when he lost his balance and went down. He is uncertain if he hit his head but states he does take blood thinners from his atrial fibrillation. He is on apixaban 5 mg twice daily. Per EMS and police who were on scene, patient has unsatisfactory living conditions with mold present, very little food and an unkempt/dirty home. They are concerned about the clutter in the patient's unstable ambulatory function. 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 He has several construction projects planned but has not gotten them started yet. REVIEW OF SYSTEMS: A review of systems was performed with positives and pertinent negatives listed in the history of present illness. 10 systems were reviewed and are otherwise negative. ALLERGIES: see below MEDICATIONS: see below PMH: see below SOCIAL HISTORY: see below DDx: Unsatisfactory living conditions, fall, gait imbalance, vertigo, dehydration, aortic insufficiency, traumatic injury such as intracranial hemorrhage among others. PHYSICAL EXAM: Vital signs reviewed. General: Elderly, 87-year-old male, in no significant distress. Somewhat unkempt. HEENT: No scleral icterus, PERRLA, neck supple. Atraumatic. Moist mucous membranes. Cardiovascular: Irregular but rate controlled. Systolic ejection murmur, distant heart tones. Pulmonary: Clear to auscultation bilaterally, normal work of breathing. Abdomen: Soft, nontender, nondistended, positive bowel sounds. Musculoskeletal: Atraumatic, no peripheral edema. Neurologic: Patient awake alert and oriented x 3, speech is clear Skin: Warm, dry, no rash EMERGENCY DEPARTMENT COURSE/MDM: This patient was evaluated and appeared to be in no significant distress. There does not appear to be any injury from the fall. The patient was placed on the monitoring tech noted to be in a rate controlled atrial fibrillation. Laboratory work is fairly reassuring, UA is negative. I did speak with the paramedics and the police via phone as the patient was hesitant to come back to the hospital. The police were mostly nehal rned that the patient's living conditions are not satisfactory, moldy food and a deteriorating house. Patient states he does not have railings on his stairs as he is renovating. 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 After consultation with the machine adjuster leader case trim, I feel the patient would best be served staying in the hospital until case management in the office of aging can arrange for services in the home that may support his current living situation. Patient expressed understanding and agreed. Hospitalist service was consulted. MONITORING: An order for cardiac monitoring was placed and the patient is noted to be in a atrial fibrillation at 67 beats per minute. RADIOLOGY: CT imaging of the head to my review reveals no evidence of acute intracranial abnormality. Otherwise defer to radiology's over read. Chest x-ray to my interpretation reveals cardiomegaly with pulmonary vascular congestion. EKG: To my interpretation reveals atrial fibrillation with PVCs or aberrantly conducted complexes at 84 bpm. QTc is 440. Normal ST segments. No significant change from previous. DISPOSITION: Admission Past Med/Surg History Medical History BPH (benign prostatic hyperplasia) Colitis Coronary artery disease Generalized osteoarthritis Primarily of knees bilaterally. Managed with APAP PRN Heart failure with preserved ejection fraction Echo 07/2022 stable no changes History of urinary retention Hyperlipidemia Sensorineural hearing loss (SNHL) of both ears >AD Severe aortic stenosis (~2007) s/p AVR (2007). Sexual dysfunction Surgical History H/O aortic valve replacement (~2007) Echo 07/2022 no change History of colonoscopy History of local excision of skin lesion S/P aortic valve replacement (~2007) Status post placement of cardiac pacemaker Family History Unknown No pertinent family history Other No family history of allergies No family history of bleeding disorder Denies family history of Hearing loss Heart disease Cancer Hypertension Stroke Asthma Social History Smoking Status: Never smoker Second Hand Exposure: No; Do You Dip or Chew Tobacco: No; Hx Alcohol Use: Yes Alcohol type: wine Alcohol Intake Frequency: 4 or More x per/Week Alcohol Intake Frequency Comment: 2-3 drinks per day with a meal Hx Substance Use: No Preferred Language: Barbadian Communication Ability: Effective Visual Impairment: Limited Hearing Ability: Hard of Hearing Docent Coordinator Required: No Beliefs That Will Affect Care: None marital status: Single Current Living Situation: Alone current occupational status: retired How many Children do You have: 0 Feels Safe at Home: Yes Childhood Exposure to Second-Hand Smoke: No Diet: regular caffeine: Yes (drinks coffee or tea daily ) Dental Care, Regularly: Yes Physical Activity Frequency: Does not Exercise Seatbelt Use: always Sunscreen Use: Yes Assistive Devices: Cane and Walker Allergies Allergies Allergy/AdvReac Type Severity Reaction Status Date / Time No Known Drug Allergies Allergy Unknown Unknown Verified 04/27/23 08:18 Home Meds Home Medications Medication Instructions Recorded Confirmed amoxicillin 500 mg capsule 2,000 mg PO UD 03/24/19 05/05/23 Previous Rx's Medication Instructions Recorded docusate sodium 100 mg capsule 100 mg PO DAILY #30 caps 12/03/22 atorvastatin 20 mg tablet (Lipitor) 20 mg PO DAILY #90 tabs 03/09/23 finasteride 5 mg tablet 5 mg PO DAILY #90 tabs 03/09/23 lisinopril 2.5 mg tablet 2.5 mg PO DAILY #90 tabs 03/09/23 loratadine 10 mg tablet 10 mg PO DAILY #30 tabs 03/09/23 apixaban 5 mg tablet (Eliquis) 5 mg PO BID #60 tabs 03/12/23 mecobalamin (vitamin B12) 2,500 2,500 mcg PO DAILY #90 tabs 04/03/23 mcg chewable tablet Results & Data (ED) Home Medications Current Medication List: was personally reviewed by me Laboratory Data Attestation: I reviewed the patient's lab results. 05/05/23 02:43 05/05/23 02:43 Lab Results 05/05/23 05/05/23 05/05/23 Range/Units 02:43 02:43 02:43 WBC 10.18 (4.8-10.8) K/ul RBC 4.33 L (4.70-6.10) M/uL Hgb 14.5 (14.0-18.0) g/dl Hct 43.2 (42.0-52.0) % MCV 99.8 (80.0-100.0) fL MCH 33.5 (25.0-34.0) pg MCHC 33.6 (32.0-36.0) g/dL RDW Std Deviation 48.1 H (36.4-46.3) fL RDW Coeff of Ruth 13.1 (11.5-14.5) % Plt Count 146 (130-400) K/uL MPV 10.2 (9.4-12.4) fL Immature Gran % (Auto) 0.3 % Neut % (Auto) 85.6 % Lymph % (Auto) 7.3 % [place] % (Auto) 6.3 % Eos % (Auto) 0.2 % Baso % (Auto) 0.3 % Neut # (Auto) 8.72 H (1.40-6.50) K/uL Lymph # (Auto) 0.74 L (1.20-3.40) K/uL [place] # (Auto) 0.64 H (0.11-0.59) K/uL Eos # (Auto) 0.02 (0.00-0.50) K/uL Baso # (Auto) 0.03 (0.00-0.20) K/uL Immature Gran # (Auto) 0.03 (0.01-0.20) K/uL Sodium 139 (136-145) mmol/L Potassium 4.8 (3.5-5.1) mmol/L Chloride 108 H (98-107) mmol/L Carbon Dioxide 25 (21-32) mmol/L Anion Gap 6 (3-11) BUN 23 (6-23) mg/dl Creatinine 1.02 (0.6-1.4) mg/dl Est Cr Clr Drug Dosing 54.9 ml/min Est GFR ( Amer) 75.7 ml/min Est GFR (Non-Af Amer) 65.3 ml/min BUN/Creatinine Ratio 22.5 H (10-20) Glucose 162 H (70-99(Fasting)) mg/dl Calcium 9.4 (8.6-10.3) mg/dl Magnesium 1.8 (1.7-2.4) mg/dl Total Bilirubin 0.9 (0.2-1.0) mg/dl AST 23 (13-39) U/L ALT 13 (7-52) U/L Alkaline Phosphatase 204 H (34-104) U/L Troponin I High Sens 10.4 (0-20) pg/ml Total Protein 6.9 (6.0-8.3) gm/dl Albumin 4.3 (3.4-5.0) gm/dl Globulin 2.6 (2.5-4.0) gm/dl Albumin/Globulin Ratio 1.7 (0.9-2) TSH 5.941 H (0.300-4.500) uIu/ml Free T4 0.77 (0.61-1.60) ng/dl Ethyl Alcohol mg/dL < 10.0 (<10.0) mg/dl Administered Medications Discontinued Medications Apixaban (Apixaban 5 Mg Tablet) 5 mg PO BID [place] Stop: 06/04/23 08:59 Last Admin: 05/06/23 09:17 Dose: 5 mg Documented By: Admin: 05/05/23 22:15 Dose: 5 mg Documented By: Admin: 05/05/23 08:46 Dose: 5 mg Documented By: MT Atorvastatin Calcium (Atorvastatin 20 Mg Tab) 20 mg PO DAILY [place] Stop: 06/04/23 08:59 Last Admin: 05/06/23 08:49 Dose: 20 mg Documented By: Admin: 05/05/23 08:46 Dose: 20 mg Documented By: MT Docusate Sodium (Docusate Sodium 100 Mg Cap) 100 mg PO DAILY [place] Stop: 06/04/23 08:59 Last Admin: 05/06/23 08:49 Dose: 100 mg Documented By: Admin: 05/05/23 08:45 Dose: 100 mg Documented By: MT Finasteride (Finasteride 5 Mg Tab) 5 mg PO DAILY [place] Stop: 06/04/23 08:59 Last Admin: 05/06/23 08:50 Dose: 5 mg Documented By: Admin: 05/05/23 08:45 Dose: 5 mg Documented By: MT Influenza Virus Vaccine (Influenza Vaccine High-Dose (Hd-Iiv4) Pf 65+ 0.7ml Syr) 0.7 ml IM .ONCE ONE Stop: 05/05/23 21:01 Last Admin: 05/06/23 05:31 Dose: 0.7 ml Documented By: CHEMO Lisinopril (Lisinopril 2.5 Mg Tab) 2.5 mg PO DAILY [facility] Stop: 06/04/23 08:59 Last Admin: 05/06/23 08:49 Dose: 2.5 mg Documented By: Admin: 05/05/23 08:45 Dose: 2.5 mg Documented By: JJ Loratadine (Loratadine 10 Mg Tab) 10 mg PO DAILY [facility] Stop: 06/04/23 08:59 Last Admin: 05/06/23 08:50 Dose: 10 mg Documented By: Admin: 05/05/23 08:45 Dose: 10 mg Documented By: JJ Imaging Data Radiologist's Impression: Chest X-Ray 05/05/23 02:36 XR chest 1V portable HISTORY: 87 years-old Male weakness acute weakness COMPARISON: 04/28/2023 TECHNIQUE: AP view of the chest FINDINGS: Cardiac silhouette is enlarged. Median sternotomy. Dual-lead left subclavian pacer. No pneumothorax, pleural effusion or airspace consolidation. Pulmonary vascular congestion. Degenerative changes of the shoulders and spine. IMPRESSION: Cardiomegaly with pulmonary vascular congestion. ACT 112: Negative or not required by law. The above report was generated using voice recognition software. It may contain grammatical, syntax or spelling errors. Electronically signed by: Artemio Haider M.D. 05/05/2023 7:[address] 05/05/23 03:35 CT head/brain wo con CLINICAL HISTORY: fall Technique: Contiguous axial CT images of the head were acquired from the base of the skull to the vertex without intravenous contrast administration. Images were viewed in brain, subdural and bone windows. Automated dose lowering techniques and/or adjustment according to patient size were utilized for this exam. Comparison: None available at the time of this dictation. Findings: Areas of decreased attenuation are present in the periventricular and subcortical white matter bilaterally consistent with small vessel ischemic disease. Generalized cerebral atrophy with commensurate enlargement of the ventricles, sulci, and cisterns is also present. There is no acute intracranial hemorrhage or evidence of acute territorial infarction. No shift of the midline structures, mass effect, or extra-axial abnormalities are shown. Atherosclerotic calcifications are present in the intracranial segments of the internal carotid arteries. Imaged portions of the paranasal sinuses and mastoid air cells are clear. The orbits appear normal. There are no acute fractures of the calvaria or scalp swelling. Impression: No acute intracranial hemorrhage, no evidence of acute territorial infarction or other acute intracranial disease process. ACT 112: Negative or not required by law. Electronically signed by: Nate Gibbs M.D. 05/05/2023 6:35 AM Discharge Plan Visit Data Chief Complaint: Fall Stated Complaint: FALL/ETOH ED Provider: Merary Jain Discharge Problem: Fall, Imbalance, Unsatisfactory living conditions Patient Disposition: Admitted As Inpatient Discharge Instructions Interventions: ED Discharge Assessment Last Done: 05/05/23 18:21
[2023-05-06] MEDS: lisinopril 2.5 MG TAB PO SCH (08:49)
[2023-05-06] MEDS: ATORVASTATIN 20 MG TAB PO SCH (08:49)
[2023-05-06] MEDS: DOCUSATE SODIUM 100 MG CAP PO SCH (08:49)
[2023-05-06] MEDS: LORATADINE 10 MG TAB PO SCH (08:50)
[2023-05-06] MEDS: FINASTERIDE 5 MG TAB PO SCH (08:50)
[2023-05-06 09:09] LABS: Hematocrit (blood only) 39.6 % (42.0-52.0); Hemoglobin 13.1 g/dl (14.0-18.0); Mean Corpuscular Hemoglobin 33.1 pg (25.0-34.0); Mean Corpuscular Hgb Conc 33.1 g/dL (32.0-36.0); Mean Platelet Volume 10.1 fL (9.4-12.4); Platelet Count 139 K/uL (130-400); RDW Coefficient of Variation 13.2 % (11.5-14.5); RDW Standard Deviation 48.1 fL (36.4-46.3); Red Blood Count 3.96 M/uL (4.70-6.10); White Blood Count 6.47 K/ul (4.8-10.8)
[2023-05-06] MEDS: APIXABAN 5 MG TABLET PO SCH (09:17)
[2023-05-06 09:27] LABS: Albumin Level 3.7 gm/dl (3.4-5.0); BUN Creatinine Ratio 24.4 (10-20); Bilirubin Direct 0.2 mg/dl (0-0.2); Bilirubin,Total 1.1 mg/dl (0.2-1.0); Calcium 8.8 mg/dl (8.6-10.3); Creatinine Clr Calc Pharmacy 62.3 ml/min; Est GFR (African American) 88.1 ml/min; Potassium 4.1 mmol/L (3.5-5.1); Total Protein 5.8 gm/dl (6.0-8.3)
--- NOTE | 2023-05-06 13:03 | Discharge Summary ---
Date of Service May 06, 2023 Admission HPI Per Admitting Provider Patient is an 87yo male with history of CAD, CHF, AF, DM and aortic stenosis s/p bovine aortic valve replacement presenting from home after a fall. Patient reports she ate his dinner around 12:00 tonight after which he stood up, lost his balance and tripped over some objects on the floor. He fell slowly onto his kitchen floor. He reports he didn't hit his head or lose consciousness. He denies chest pain, palpitations, cough or SOB. He was unable to get up from the floor due to weakness as well as pain in his back. He called EMS. Police/EMS noted that patient's home was in a state of disarray, concern for piles of books and clutter as well as the possibility of mold. Patient admits that his house is a little bit chaotic now. He lives alone in a large, older home in [place]. He has been trying to clear out old papers and books an dis trying to get his bathroom updated to a walk-in shower. Patient ideally wants to return to his home and continue to live independently. In the ER he is afebrile, HD stable. Principal Diagnosis Mechanical fall, ambulatory dysfunction Discharge Exam General-alert and oriented x3, no fevers, no chills HEENT-head atraumatic and normocephalic, pupils equal and reactive to light, extraocular muscles intact Neck-no lymphadenopathy or thyromegaly, trachea midline Chest-clear to auscultation percussion. No rales wheezing or rhonchi Cardiac-regular rate and rhythm, normal S1 and S2 Abdomen-normal bowel sounds, nontender, no hepatosplenomegaly Extremities-no cyanosis, clubbing, or edema Neuro-cranial nerves II through XII intact, motor and sensory function within normal limits, strength symmetrical with generalized weakness, no focal deficits Psych-normal affect, normal mood Discharge Data Allergies Allergy/AdvReac Type Severity Reaction Status Date / Time No Known Drug Allergies Allergy Unknown Unknown Verified 04/27/23 08:18 Ordered Studies 05/05/23 03:35 CT head/brain wo con Stat Hospital Course (1) Ambulatory dysfunction: Continue PT and OT while hospitalized. He flatly refuses to consider IPR or SNF at discharge. He states he just wants to go home. Will discharge with home health services (2) Atrial fibrillation, controlled: Currently paced rhythm. Continue Eliquis (3) Hyperlipidemia: Stable. Continue Atorvastatin (4) BPH (benign prostatic hyperplasia): Stable. Continue Finasteride Plan Home today, May 06, with home health services. He refuses to consider IPR or SNF placement. Total Time Total Time Spent Total Time Spent (In Minutes): 40-minute Discharge Plan Discharge Items Patient Disposition: Home - Home Health Services Reason For Visit: FALL Discharge Diagnosis: Mechanical fall, ambulatory dysfunction Activity: Resume your previous activity Non-emergency contact: Primary Care Provider Call non-emergency contact if: your symptoms worsen Follow-up/Referrals: Kapil Dee, DO [Primary Care Provider] - Diet: Carb Consistent or DM2 and Heart Healthy Addtl Attending Provider Instructions: No new medications at this time. Home health services have been requested Pending Studies at Discharge: No Stand-Alone Forms: My [facility] [employer] Smoking Cessation Medications and DC Order Prescriptions: Continued mecobalamin (vitamin B12) 2,500 mcg tablet,chewable 2,500 mcg PO DAILY Qty: 90 3RF amoxicillin 500 mg capsule 2,000 mg PO UD Patient Comments: Take 4 capsules 1 hour before dental appt loratadine 10 mg tablet 10 mg PO DAILY Qty: 30 1RF atorvastatin [Lipitor] 20 mg tablet 20 mg PO DAILY Qty: 90 3RF finasteride 5 mg tablet 5 mg PO DAILY Qty: 90 3RF lisinopril 2.5 mg tablet 2.5 mg PO DAILY Qty: 90 3RF docusate sodium 100 mg capsule 100 mg PO DAILY Qty: 30 5RF Eliquis 5 mg tablet 5 mg PO BID Qty: 60 2RF Discharge Orders: Discharge Order (Routine); Ordered 05/06/23 Ordered By: Jason Oden Admission Data Admit Date/Time: 05/05/23 05:16 Attending Provider: Jason Oden Admit Provider: Rocío Rodegrs Primary Care Provider: Kapil Dee Coding Level of Care Code 79917 INP/OBS DISCH >30 MIN Diagnoses Ambulatory dysfunction R26.2 Atrial fibrillation, controlled I48.91 Hyperlipidemia E78.5 BPH (benign prostatic hyperplasia) N40.0
== END 2023-05-06 16:11 | disposition home health service (06) | DRG 92 ==
LOC: ED 02:26 → INTOOBSV 05:16 → EDINP 05:16 → SUATTDRO 05:16 → 3N 18:21

== ENCOUNTER 2024-03-25 15:36 | Inpatient (IN) ==
[2024-03-25 16:24] LABS: Basophils # (auto) 0.02 K/uL (0.00-0.20); Basophils % (auto) 0.3 %; Eosinophils # (auto) 0.01 K/uL (0.00-0.50); Eosinophils % (auto) 0.1 %; Hematocrit (blood only) 39.7 % (42.0-52.0); Hemoglobin 12.7 g/dl (14.0-18.0); Immature Granulocytes # (auto) 0.02 K/uL (0.01-0.20); Immature Granulocytes % (auto) 0.3 %; Lymphocytes # (auto) 0.58 K/uL (1.20-3.40); Lymphocytes % (auto) 7.8 %; Mean Corpuscular Hemoglobin 31.4 pg (25.0-34.0); Mean Platelet Volume 9.2 fL (9.4-12.4); Monocytes # (auto) 0.58 K/uL (0.11-0.59); Monocytes % (auto) 7.8 %; Neutrophils # (auto) 6.22 K/uL (1.40-6.50); Neutrophils % (auto) 83.7 %; Platelet Count 166 K/uL (130-400); RDW Coefficient of Variation 15.2 % (11.5-14.5); RDW Standard Deviation 54.6 fL (36.4-46.3); Red Blood Count 4.05 M/uL (4.70-6.10); White Blood Count 7.43 K/ul (4.8-10.8)
[2024-03-25 16:39] LABS: Albumin Globulin Ratio 1.7 (0.9-2); Albumin Level 4.1 gm/dl (3.4-5.0); BUN Creatinine Ratio 22.7 (10-20); Calcium 8.9 mg/dl (8.6-10.3); Creatinine Clr Calc Pharmacy 74.4 ml/min; Est GFR (African American) 94.3 ml/min; Est GFR (Non-African American) 81.3 ml/min; Globulin 2.4 gm/dl (2.5-4.0); Magnesium 1.9 mg/dl (1.7-2.4); Potassium 4.6 mmol/L (3.5-5.1); Total Protein 6.5 gm/dl (6.0-8.3)
[2024-03-25 16:41] LABS: Appearance Urine Clear (Clear); Bacteria Urine Automated None Seen (None Seen); Bilirubin Urine Negative (Negative); Blood Urine Negative (Negative); Cast Urine Automated 0-2 /lpf (0-2); Color Urine Yellow; Epithelial Cell Urine Auto 0-2 /hpf (0-2); Glucose Urine UA Negative (Negative); Ketones Urine Negative (Negative); Leukocyte Esterase Urine Negative (Negative); Nitrite Urine Negative (Negative); Protein Urine 1+ (Negative); RBC Urine Automated 0-2 /hpf (0-2); Specific Gravity Urine 1.018 (1.000-1.030); Urobilinogen Urine Negative (Negative); WBC Urine Automated 0-5 /hpf (0-5)
--- NOTE | 2024-03-25 16:41 | Emergency Department Note ---
Impression & Plan Generalized weakness, Ambulatory dysfunction, Elevated brain natriuretic peptide (BNP) level ED Provider Note HISTORY OF PRESENT ILLNESS: Patient is an 88-year-old male presenting with generalized weakness. Patient reports he lives at home alone. He states that he currently resides in the second level of his house and ambulates with 2 canes. He states that over the last few days he has been having progressively worsening weakness. Reports that today he was unable to get up out of his bed on his own and had to call 911. He has a history of prostate cancer. He denies any recent fevers. Denies any chest pain or shortness of breath with his weakness. He denies any nausea, vomiting or abdominal pain. Denies any dysuria or hematuria. He reports he has not eaten at all today and states that he was unable to get his morning medications secondary to being unable to get up out of bed. Denies any recent sick contact exposures. ROS: as above PHYSICAL EXAM: Constitutional: Patient appears in no acute distress. HENT: Head: Normocephalic and atraumatic. Eyes: EOMI, PERRL Mouth/Throat: Mucous membranes moist. Neck: Trachea midline. Neck supple. Cardiovascular: Irregular rhythm. No murmurs, rubs or gallops. Intact distal pulses. Pulmonary/Chest: No respiratory distress. Breath sounds clear and equal bilaterally. No wheezes or rales. Abdominal: Abdomen soft, no tenderness, rebound or guarding. Musculoskeletal: No edema, tenderness or deformity noted. Patient is able to straight leg raise bilaterally. Skin: Warm and dry. No rash, erythema, pallor or cyanosis Psychiatric: Appropriate mood and affect for situation. Neurological: Alert and keenly responsive. CN II-XII grossly intact, moving all extremities equally and fully. MDM: - Vitals signs showed hypertension. - History obtained via patient. History as above. - Chronic conditions affecting care: Prostate cancer; DM-2; CHF; CAD - Differential diagnoses include, but are not limited to: Pneumonia; UTI; deconditioning; CVA; intracranial hemorrhage; intracranial metastases - Order placed for continuous cardiac monitoring. At this time, monitor showed rate of 84 bpm with irregular rhythm, per my interpretation. - External medical records reviewed. Primary care visit note dated 02/09/2024 was reviewed. Patient was seen for bilateral lower extremity edema. He has elevated PSA with metastases and bony lesions. He was scheduled for interventional biopsy. - EKG interpreted by myself showed atrial fibrillation. Rate 84 bpm. QT 334. No acute ischemic changes. Noted to have occasional PVCs. - Laboratory workup interpreted by myself showed normal WBC; anemia (Hgb 12.7); slightly elevated INR (1.2 - pt on eliquis); normal electrolytes; normal troponin; elevated alkaline phosphatase (530); normal procalcitonin; normal TSH; elevated BNP - UA negative for infection - Viral respiratory panel negative - CXR negative for pneumonia, per my interpretation. Radiology notes pulmonary vascular congestion with potential pulmonary edema. - CT head wo contrast negative for acute intracranial pathology. 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 - Discussed results with the patient. He is agreeable to admission for PT/OT assessment for potential placement, given his weakness and inability to get around at home. - Discussion was had with counseling case manager about patient's case and need for admission - Hospitalist consulted for admission - Patient admitted to [facility] for further evaluation and management. ASSESSMENT AND PLAN: Diagnosis: Generalized weakness; ambulatory dysfunction; elevated BNP Plan: Admit Past Med/Surg History Problem List (Updated 03/25/24 @ 18:56 by Gissell Jason MD) Elevated brain natriuretic peptide (BNP) level (Acute) Ambulatory dysfunction (Acute) Generalized weakness (Acute) Prostate cancer Elevated PSA Metastasis Bone lesion Enlarged prostate Elevated alkaline phosphatase level Alcohol use disorder Constipation Pacemaker Bradycardia Type 2 diabetes mellitus in remission Coronary artery disease Second degree atrioventricular block by electrocardiogram Heart failure with preserved ejection fraction Echo 07/2022 stable no changes H/O aortic valve replacement (~2007) Echo 07/2022 no change History of urinary retention (Acute) Ambulatory dysfunction Macrocytosis without anemia Vitamin D deficiency (Acute) Medical History Amaurosis fugax of right eye Unsatisfactory living conditions Atrial fibrillation, controlled Sexual dysfunction Sensorineural hearing loss (SNHL) of both ears Hyperlipidemia BPH (benign prostatic hyperplasia) Severe aortic stenosis (~2007) Generalized osteoarthritis Colitis Surgical History Status post placement of cardiac pacemaker History of local excision of skin lesion History of colonoscopy S/P aortic valve replacement (~2007) Family History Unknown No pertinent family history Other No family history of allergies No family history of bleeding disorder Denies family history of Hearing loss Heart disease Cancer Hypertension Stroke Asthma Social History Smoking Status: Never smoker Second Hand Exposure: No; Do You Dip or Chew Tobacco: No; Hx Alcohol Use: Yes Alcohol type: wine Alcohol Intake Frequency: 4 or More x per/Week Alcohol Intake Frequency Comment: 2-3 drinks per day with a meal Hx Substance Use: No Preferred Language: Liberian Communication Ability: Effective Visual Impairment: Limited Hearing Ability: Hard of Hearing Care Assistant Required: No Beliefs That Will Affect Care: None marital status: Single Current Living Situation: Alone current occupational status: retired How many Children do You have: 0 Feels Safe at Home: Hesitant to Answer Childhood Exposure to Second-Hand Smoke: No Diet: regular caffeine: Yes (drinks coffee or tea daily ) Dental Care, Regularly: Yes Physical Activity Frequency: Does not Exercise Seatbelt Use: always Sunscreen Use: Yes Assistive Devices: Cane and Walker Allergies Allergies Allergy/AdvReac Type Severity Reaction Status Date / Time No Known Drug Allergies Allergy Unknown Unknown Verified 03/25/24 18:08 Home Meds Home Medications Medication Instructions Recorded Confirmed amoxicillin 500 mg capsule 2,000 mg PO UD 02/09/24 03/25/24 atorvastatin 20 mg tablet (Lipitor) 20 mg PO DAILY 02/09/24 03/25/24 Previous Rx's Medication Instructions Recorded docusate sodium 100 mg capsule 100 mg PO DAILY #30 caps 12/03/22 loratadine 10 mg tablet 10 mg PO DAILY #90 tabs 05/26/23 apixaban 5 mg tablet (Eliquis) 5 mg PO BID #180 tabs 06/29/23 finasteride 5 mg tablet 5 mg PO DAILY #90 tabs 10/06/23 mecobalamin (vitamin B12) 2,500 2,500 mcg PO DAILY #90 tabs 01/28/24 mcg chewable tablet Results & Data (ED) Vital Signs Vital Signs - 24 hr 03/25/24 16:11 03/25/24 16:21 03/25/24 17:54 Pulse Rate 86 82 Pulse Rate [Apical] Respiratory Rate 18 Respiratory Effort / Characteristics Non-Labored Respiratory Depth Normal Respiratory Pattern Regular Blood Pressure 147/93 H Blood Pressure [Left Arm] Blood Pressure Mean 111 Blood Pressure Mean [Left Arm] Pulse Oximetry 98 Oxygen Delivery Method Room Air Room Air Sepsis Recent Fever Within 48 Hours No Sepsis New/Unexplained Change in Mental Status N/A Sepsis Action Taken by Nursing No Action Required 03/25/24 17:54 Pulse Rate Pulse Rate [Apical] 80 Respiratory Rate 14 Respiratory Effort / Characteristics Non-Labored Spontaneous Respiratory Depth Normal Respiratory Pattern Regular Blood Pressure Blood Pressure [Left Arm] 127/57 L Blood Pressure Mean Blood Pressure Mean [Left Arm] 80 Pulse Oximetry 94 Oxygen Delivery Method Room Air Sepsis Recent Fever Within 48 Hours Sepsis New/Unexplained Change in Mental Status Sepsis Action Taken by Nursing Laboratory Data 03/25/24 15:59 03/25/24 15:59 Lab Results 03/25/24 03/25/24 Range/Units 15:59 16:08 WBC 7.43 (4.8-10.8) K/ul RBC 4.05 L (4.70-6.10) M/uL Hgb 12.7 L (14.0-18.0) g/dl Hct 39.7 L (42.0-52.0) % MCV 98.0 (80.0-100.0) fL MCH 31.4 (25.0-34.0) pg MCHC 32.0 (32.0-36.0) g/dL RDW Std Deviation 54.6 H (36.4-46.3) fL RDW Coeff of Ruth 15.2 H (11.5-14.5) % Plt Count 166 (130-400) K/uL MPV 9.2 L (9.4-12.4) fL Immature Gran % (Auto) 0.3 % Neut % (Auto) 83.7 % Lymph % (Auto) 7.8 % [place] % (Auto) 7.8 % Eos % (Auto) 0.1 % Baso % (Auto) 0.3 % Neut # (Auto) 6.22 (1.40-6.50) K/uL Lymph # (Auto) 0.58 L (1.20-3.40) K/uL [place] # (Auto) 0.58 (0.11-0.59) K/uL Eos # (Auto) 0.01 (0.00-0.50) K/uL Baso # (Auto) 0.02 (0.00-0.20) K/uL Immature Gran # (Auto) 0.02 (0.01-0.20) K/uL PT 12.9 H (9.0-12.0) Seconds INR 1.2 H (0.9-1.1) Sodium 137 (136-145) mmol/L Potassium 4.6 (3.5-5.1) mmol/L Chloride 107 (98-107) mmol/L Carbon Dioxide 23 (21-32) mmol/L Anion Gap 7 (3-11) BUN 17 (6-23) mg/dl Creatinine 0.75 (0.6-1.4) mg/dl Est Cr Clr Drug Dosing 74.4 ml/min Est GFR ( Amer) 94.3 ml/min Est GFR (Non-Af Amer) 81.3 ml/min BUN/Creatinine Ratio 22.7 H (10-20) Glucose 119 H (70-99(Fasting)) mg/dl Lactate 1.3 (0.4-2.0) mmol/L Calcium 8.9 (8.6-10.3) mg/dl Magnesium 1.9 (1.7-2.4) mg/dl Total Bilirubin 1.0 (0.2-1.0) mg/dl AST 21 (13-39) U/L ALT 10 (7-52) U/L Alkaline Phosphatase 530 H (34-104) U/L Troponin I High Sens 11.2 (0-20) pg/ml B-Natriuretic Peptide 380 H (0-100) pg/ml Total Protein 6.5 (6.0-8.3) gm/dl Albumin 4.1 (3.4-5.0) gm/dl Globulin 2.4 L (2.5-4.0) gm/dl Albumin/Globulin Ratio 1.7 (0.9-2) Procalcitonin 0.06 (0-0.5) ng/ml TSH 1.406 (0.300-4.500) uIu/ml Urine Color Yellow Urine Appearance Clear (Clear) Urine pH 8.0 H (4.5-7.5) Ur Specific Lucien 1.018 (1.000-1.030) Urine Protein 1+ H (Negative) Urine Glucose (UA) Negative (Negative) Urine Ketones Negative (Negative) Urine Blood Negative (Negative) Urine Nitrite Negative (Negative) Urine Bilirubin Negative (Negative) Urine Urobilinogen Negative (Negative) Ur Leukocyte Esterase Negative (Negative) Urine WBC (Auto) 0-5 (0-5) /hpf Urine RBC (Auto) 0-2 (0-2) /hpf U Hyaline Cast (Auto) 0-2 (0-2) /lpf U Epithel Cells (Auto) 0-2 (0-2) /hpf Urine Bacteria (Auto) None Seen (None Seen) Adenovirus (PCR) Not Detected (NotDetected) B. pertussis DNA (PCR) Not Detected (NotDetected) B.parapertussis DNA PCR Not Detected (NotDetected) C. pneumoniae DNA (PCR) Not Detected (NotDetected) Coronavirus OC43 (PCR) Not Detected (NotDetected) Coronavirus HKU1 (PCR) Not Detected (NotDetected) Coronavirus 229E (PCR) Not Detected (NotDetected) SARS-CoV-2 (PCR) Not Detected (NotDetected) Coronavirus NL63 (PCR) Not Detected (NotDetected) Human Metapneumovir PCR Not Detected (NotDetected) Influenza Type A (PCR) Not Detected (NotDetected) Influenza Type B (PCR) Not Detected (NotDetected) M. pneumoniae (PCR) Not Detected (NotDetected) Parainfluenza 1 (PCR) Not Detected (NotDetected) Parainfluenza 2 (PCR) Not Detected (NotDetected) Parainfluenza 3 (PCR) Not Detected (NotDetected) Parainfluenza 4 (PCR) Not Detected (NotDetected) RSV (PCR) Not Detected (NotDetected) Entero/Rhino (PCR) Not Detected (NotDetected) Administered Medications Finasteride (Finasteride 5 Mg Tab) 5 mg PO QAM [facility] Stop: 04/24/24 16:44 Last Admin: 03/25/24 16:57 Dose: 5 mg Documented By: SHELL Furosemide (Furosemide 20 Mg Tab) 20 mg PO QAM [facility] Stop: 04/24/24 16:44 Last Admin: 03/25/24 16:57 Dose: 20 mg Documented By: SHELL Discontinued Medications Apixaban (Apixaban 5 Mg Tablet) 5 mg PO NOW STA Stop: 03/25/24 16:39 Last Admin: 03/25/24 16:57 Dose: 5 mg Documented By: SHELL Potassium Chloride (Potassium Chloride Crtab 20 Meq Tabcr) 20 meq PO NOW STA Stop: 03/25/24 16:39 Last Admin: 03/25/24 16:59 Dose: 20 meq Documented By: SHELL Potassium Chloride (Potassium Chloride 10 Meq Tabcr) 10 meq PO NOW STA Stop: 03/25/24 16:39 Last Admin: 03/25/24 17:00 Dose: 10 meq Documented By: SHELL Imaging Data Radiologist's Impression: Chest X-Ray 03/25/24 15:58 XR chest 1V portable HISTORY: 88 years-old Male weakness COMPARISON: Chest CT 01/01/2024 TECHNIQUE: AP view of the chest FINDINGS: Cardiac silhouette is enlarged. Left subclavian pacer. Median sternotomy. Pulmonary vascular congestion with interstitial coarsening. Fusiform dilation of the thoracic aorta better seen on prior exam. Degenerative changes of the shoulders and spine. IMPRESSION: Cardiomegaly with pulmonary vascular congestion and probable mild pulmonary edema. ACT 112: Negative or not required by law. The above report was generated using voice recognition software. It may contain grammatical, syntax or spelling errors. Electronically signed by: Artemio Haider M.D. 03/25/2024 5:[address] 03/25/24 16:37 CT SCAN OF THE BRAIN WITHOUT IV CONTRAST CLINICAL HISTORY: Generalized weakness. COMPARISON STUDY: CT of the brain dated 07/30/2023 and 05/05/2023. TECHNIQUE: Unenhanced axial CT scan of the brain is performed from the vertex to the skull base. A dose lowering technique was utilized adhering to the principles of ALARA. CT DOSE: 625.8 mGy.cm FINDINGS: Brain parenchyma: There is age-related involutional change noting [id number] subcortical and periventricular microangiopathic disease. There is no hemorrhage, mass effect, or evidence of acute territorial ischemia by CT criteria. Jaffe-white matter differentiation is preserved. No extra-axial fluid collection is seen. Ventricles, sulci, cisterns: Prominent secondary to involutional change. Intracranial vasculature: There is atherosclerotic calcification of the cavernous carotid arteries. Calvarium: The calvarium appears intact. Sclerotic lesions are seen at the skull base within the right anterior ring of C1 and the clivus. This is highly suggestive of bony metastatic disease. Sinuses and mastoids: The visualized paranasal sinuses are clear. The mastoid air cells are well pneumatized. Orbits: The bony orbits are grossly intact. IMPRESSION: 1. There is no hemorrhage, mass effect, or evidence of acute territorial ischemia by CT criteria. 2. 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 Correlate with the oncological history. ACT 112: Negative or not required by law. Electronically signed by: Warren Simms M.D. 03/25/2024 5:44 PM Discharge Plan Visit Data Chief Complaint: Weakness Stated Complaint: WEAKNESS ED Provider: Gissell Jason Discharge Problem: Generalized weakness, Ambulatory dysfunction, Elevated brain natriuretic peptide (BNP) level Forms Stand Alone Forms: [facility] [employer] Prescriptions Prescriptions: No Action Eliquis 5 mg tablet 5 mg PO BID Qty: 180 3RF finasteride 5 mg tablet 5 mg PO DAILY Qty: 90 3RF amoxicillin 500 mg capsule 2,000 mg PO UD Patient Comments: Take 4 capsules 1 hour before dental appt Rx Instructions: Take 4 capsules 1 hour before dental appt docusate sodium 100 mg capsule 100 mg PO DAILY Qty: 30 5RF Rx Instructions: Unable to verify OTC meds at this date/time. loratadine 10 mg tablet 10 mg PO DAILY Qty: 90 1RF Rx Instructions: Unable to verify OTC meds at this date/time. mecobalamin (vitamin B12) 2,500 mcg tablet,chewable 2,500 mcg PO DAILY Qty: 90 3RF Rx Instructions: Unable to verify OTC meds at this date/time. atorvastatin [Lipitor] 20 mg tablet 20 mg PO DAILY Referrals Referrals: Kapil Dee DO [Primary Care Provider] -
[2024-03-25 16:45] LABS: Troponin I High Sensitivity 11.2 pg/ml (0-20)
[2024-03-25 16:52] LABS: INR 1.2 (0.9-1.1); Prothrombin Time 12.9 Seconds (9.0-12.0)
[2024-03-25 16:54] LABS: Thyroid Stimulating Hormone 1.406 uIu/ml (0.300-4.500)
[2024-03-25] MEDS: APIXABAN 5 MG TABLET PO STA (16:57)
[2024-03-25] MEDS: FINASTERIDE 5 MG TAB PO SCH (16:57)
[2024-03-25] MEDS: FUROSEMIDE 20 MG TAB PO SCH (16:57)
[2024-03-25] MEDS: POTASSIUM CHLORIDE CRTAB 20 MEQ TABCR PO STA (16:59)
[2024-03-25] MEDS: POTASSIUM CHLORIDE 10 MEQ TABCR PO STA (17:00)
[2024-03-25 17:19] LABS: Adenovirus PCR Not Detected (NotDetected); Bordetella parapertussis PCR Not Detected (NotDetected); Bordetella pertussis PCR Not Detected (NotDetected); Chlamydia pneumoniae PCR Not Detected (NotDetected); Coronavirus 229E PCR Not Detected (NotDetected); Coronavirus CoV-2 (COVID19)PCR Not Detected (NotDetected); Coronavirus HKU1 PCR Not Detected (NotDetected); Coronavirus NL63 PCR Not Detected (NotDetected); Coronavirus OC43PCR Not Detected (NotDetected); Human Metapneumovirus PCR Not Detected (NotDetected); Influenza A PCR Not Detected (NotDetected); Influenza B PCR Not Detected (NotDetected); Mycoplasma pneumoniae PCR Not Detected (NotDetected); Parainfluenza Virus 1 PCR Not Detected (NotDetected); Parainfluenza Virus 2 PCR Not Detected (NotDetected); Parainfluenza Virus 3 PCR Not Detected (NotDetected); Parainfluenza Virus 4 PCR Not Detected (NotDetected); Respiratory Syncytial VirusPCR Not Detected (NotDetected); Rhinovirus/Enterovirus PCR Not Detected (NotDetected)
--- NOTE | 2024-03-25 17:28 | XRay Report ---
XR chest 1V portable HISTORY: 88 years-old Male weakness COMPARISON: Chest CT 01/01/2024 TECHNIQUE: AP view of the chest FINDINGS: Cardiac silhouette is enlarged. Left subclavian pacer. Median sternotomy. Pulmonary vascular congesti on with interstitial coarsening. Fusiform dilation of the thoracic aorta better seen on prior exam. D egenerative changes of the shoulders and spine. IMPRESSION: Cardiomegaly with pulmonary vascular congestion and probable mild pulmonary edema. ACT 112: Negative or not required by law. The above report was generated using voice recognition software. It may contain grammatical, syntax o r spelling errors. Electronically signed by: Artemio Haider M.D. 03/25/2024 5:26 PM
--- NOTE | 2024-03-25 17:46 | CT Scan Report ---
CT SCAN OF THE BRAIN WITHOUT IV CONTRAST CLINICAL HISTORY: Generalized weakness. COMPARISON STUDY: CT of the brain dated 07/30/2023 and 05/05/2023. TECHNIQUE: Unenhanced axial CT scan of the brain is performed from the vertex to the skull base. A do se lowering technique was utilized adhering to the principles of ALARA. CT DOSE: 625.8 mGy.cm FINDINGS: Brain parenchyma: There is age-related involutional change noting [id number] subcortical and pe riventricular microangiopathic disease. There is no hemorrhage, mass effect, or evidence of acute ter ritorial ischemia by CT criteria. Jaffe-white matter differentiation is preserved. No extra-axial flui d collection is seen. Ventricles, sulci, cisterns: Prominent secondary to involutional change. Intracranial vasculature: There is atherosclerotic calcification of the cavernous carotid arteries. Calvarium: The calvarium appears intact. Sclerotic lesions are seen at the skull base within the righ t anterior ring of C1 and the clivus. This is highly suggestive of bony metastatic disease. Sinuses and mastoids: The visualized paranasal sinuses are clear. The mastoid air cells are well pneu matized. Orbits: The bony orbits are grossly intact. IMPRESSION: 1. There is no hemorrhage, mass effect, or evidence of acute territorial ischemia by CT criteria. 2. 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 Correlate with the oncological his tory. ACT 112: Negative or not required by law. Electronically signed by: Warren Simms M.D. 03/25/2024 5:44 PM
--- NOTE | 2024-03-25 19:19 | History & Physical Report ---
Date of Service March 25, 2024 Assessment & Plan (1) Generalized weakness: Plan: Worsening weakness; insidious onset D/D: Deconditioning vs Ambulatory dysfunction vs Malnutrition vs Metastatic Prostrate Cancer, Stroke very less likely Vitals signs showed hypertension Labs: WBC Normal; Hgb 12.7; ALP:530;Normal Procal, normal TSH;BNP:380 UA negative for infection Viral respiratory panel negative Imaging CXR : pulmonary vascular congestion with potential pulmonary edema. 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 MRI Head with/o contrast ordered. Plan: Oncology consult to discuss goals of androgen deprivation therapy (3) Atrial fibrillation: Plan: Rate controlled Afib with stable vitals;Previous ECGs show Afib too. Rate 84 bpm. QT 334. No acute ischemic changes Under Eliquis for S/P Aortic valve replacement. Implantable Cardiac Device insitu (4) H/O aortic valve replacement: Plan: S/P Valve replacement for Severe Aortic Valve stenosis Under Eliquis Clinically BL leg edema, no gallop in heart exam. Chest Xray: pulmonary vascular congestion with potential pulmonary edema. Last Echo( 08/14/22): EF 55-60%/ Grade I DD, mild concentric LVH, Prosthetic valve seated normally and functioned normal. BNP: 380-------<408( 01/28) Continue Lasix 20 mg Plan Disposition Admit: Med/ Surg Diet: Regular Diet Code status: Full code DVT prophylaxis: Under Eliquis History of Present Illness Chief Complaint: Weakness suddenly worsened since yesterday Primary Care Provider: Kapil Dee DO Mr. Rivera is a 88 year pleasant male, retired from [employer] with past h/o Dm, HTN, Metastatic Prostrate Cancer, Alcohol use disorder, AV block. Aortic valve replacement for severe Aortic Stenosis, with S/P Cardiac Pacemaker , came to ED today for generalized weakness. He noticed he is gradually worsening from baseline function recently, however he felt very weak last night that he could not even roll out of bed. He noticed last few days has been harder and harder for him. Usually it took him 10 minutes to wake up from bed, catch his canes and start his routine. This morning he woke up at around 1: 45 am and could not get out of bed. He felt really weak and called 911 after which he was brought to ED. No h/o Fall, Trauma. He mentioned he lives in second floor of his huge house which he bought and repaired after halfway. He finds difficult to walk down the stairs rather than climbing the stairs. He denies significant SOB. He mentions some mild headache which he noticed few days ago, but is not that worrisome for him. He has never been to rehab before and he is happy with his independent life until few days ago. However, now he feels like this is the right time for him to take help. He was planing to meet a person coming Thursday to hire for helper as he wanted to live as independent possible. He says otherwise he can cook fo himself, ride car and does grocery at [employer] by himself. He reads book and listens to SU everyday after breakfast. He has a history of prostate cancer and he is well aware that his cancer has spread to his bones. He endorses increased frequency of peeing mostly during night time. He has not yet decided if he is going for suggested therapy as per urologist. he says he wants to do more research before deciding. He denies any bone pain right now, recent fevers, nausea, vomiting or abdominal pain, seizure, paralysis of his limbs, diffisulty swallowing, loss of appetite, Denies any recent sick contact exposures. PMH: Reviewed Medication : reviewed Personal: Sleeps well 8-10 hours, however needs to wake up 3-4 hours for peeing Bowel movement: q week ; uses laxative sometimes Alcohol use: 2-3 drinks per day with breakfast and lunch( Drinks Vodka/ Martini /Wine) Drug and Allergy : No known so far Code status: Full code Allergies Allergy/AdvReac Type Severity Reaction Status Date / Time No Known Drug Allergies Allergy Unknown Unknown Verified 03/25/24 18:08 Home Medications Medication Instructions Recorded Confirmed Type docusate sodium 100 mg capsule 100 mg PO DAILY #30 caps 05/17/23 09/06/24 Rx loratadine 10 mg tablet 10 mg PO DAILY #90 tabs 05/26/23 03/25/24 Rx apixaban 5 mg tablet (Eliquis) 5 mg PO BID #180 tabs 06/29/23 03/25/24 Rx finasteride 5 mg tablet 5 mg PO DAILY #90 tabs 10/06/23 03/25/24 Rx mecobalamin (vitamin B12) 2,500 2,500 mcg PO DAILY #90 tabs 01/28/24 03/25/24 Rx mcg chewable tablet amoxicillin 500 mg capsule 2,000 mg PO UD 02/09/24 03/25/24 History atorvastatin 20 mg tablet (Lipitor) 20 mg PO DAILY 02/09/24 03/25/24 History Past Med/Surg History Problem List (Updated 03/26/24 @ 17:27 by Edyta Lyon PA-C) Ileus Elevated brain natriuretic peptide (BNP) level (Acute) Ambulatory dysfunction (Acute) Generalized weakness (Acute) Prostate cancer Elevated PSA Metastasis Bone lesion Enlarged prostate Elevated alkaline phosphatase level Alcohol use disorder Constipation Pacemaker Bradycardia Type 2 diabetes mellitus in remission Coronary artery disease Second degree atrioventricular block by electrocardiogram Heart failure with preserved ejection fraction Echo 07/2022 stable no changes H/O aortic valve replacement (~2007) Echo 07/2022 no change History of urinary retention (Acute) Ambulatory dysfunction Macrocytosis without anemia Vitamin D deficiency (Acute) Medical History Amaurosis fugax of right eye Unsatisfactory living conditions Atrial fibrillation, controlled Sexual dysfunction Sensorineural hearing loss (SNHL) of both ears Hyperlipidemia BPH (benign prostatic hyperplasia) Severe aortic stenosis (~2007) Generalized osteoarthritis Colitis Surgical History Status post placement of cardiac pacemaker History of local excision of skin lesion History of colonoscopy S/P aortic valve replacement (~2007) Family History Unknown No pertinent family history Other No family history of allergies No family history of bleeding disorder Denies family history of Hearing loss Heart disease Cancer Hypertension Stroke Asthma Social History Smoking Status: Never smoker Second Hand Exposure: No; Do You Dip or Chew Tobacco: No; Tobacco Cessation Education Requested by Patient: No Hx Alcohol Use: Yes Alcohol type: wine and hard liquor Alcohol Intake Frequency: 4 or More x per/Week Alcohol Intake Frequency Comment: 2-3 drinks per day with a meal Hx Substance Use: No Preferred Language: Spanish Communication Ability: Effective Visual Impairment: Limited Hearing Ability: Hard of Hearing Staff Nuclear Medicine Technologist Required: No Beliefs That Will Affect Care: None marital status: Single Current Living Situation: Alone current occupational status: retired How many Children do You have: 0 Other Information That Helps Us Care for You: No Feels Safe at Home: Yes and No Is there a partner from a previous relationship who is making you feel unsafe now?: No Any Concerns about Your Family Situation: No Safety Concerns: Afraid for Self Childhood Exposure to Second-Hand Smoke: No Diet: regular caffeine: Yes (drinks coffee or tea daily ) Dental Care, Regularly: Yes Physical Activity Frequency: Does not Exercise Seatbelt Use: always Sunscreen Use: Yes Assistive Devices: Cane, Glasses, Hearing Aid - Bilateral and Walker Review of Systems Review of Systems: As per HPI Physical Exam Physical Exam: Constitutional: Well appearing, No acute distress, PILCCOD: Negative, hygiene not maintained HEENT: Atraumatic, Normocephalic, No conjunctival injection CVS: S1 S2 no murmur, Irregular Rhythm, BL leg edema + Respiratory: BL decreased air entry with NVBS. No rhonchi, wheezes, or crackles. No increased work of breathing GI: Soft, Nondistended, Nontender, Normal Bowel sounds + MSK: No gross deformities noted Skin: Warm, Dry, Rashes in BL lower leg ? Senile skin changes, Solar lentiges in upper chest and neck Neuro: Alert, Oriented to TPP, No Focal deficit, Cranial Nerve: I to XII Intact Psych: Mood and Affect congruent, Cooperative on exam Results & Data Results & Data Vital Signs (Past 12 Hours) Vital Signs Pulse Pulse Resp BP BP Pulse Ox O2 Del Method 03/25/24 17:54 80 14 127/57 L 94 Room Air 03/25/24 17:54 Room Air 03/25/24 16:21 82 03/25/24 16:11 86 18 147/93 H 98 Room Air Supervising Physician Co-Signing Physician Notes I personally saw and examined the patient. I independently reviewed the labs, EKG, imaging, problem list, medication list, past medical history and family history. I verified all hughes points and agree with resident physician Dr Lisa Desai MD with the following exceptions and/or additions: 88 year old male presents to the ER with generalized weakness getting progressively worse over months O/E Frail, thin appearing, HS RRR, no murmurs, Chest CTAB, Abdo SNT A/P Generalized weakness - appears to be slowly progressive likely related to his poor nutrition in setting of metastatic prostate cancer, consult oncology, Brain MRI, PT/OT
[2024-03-25] MEDS ORDERED: POLYETHYLENE (MIRALAX) 17 GM PACK PO PRN (22:11)
[2024-03-26] MEDS: ONDANSETRON INJ 2 MG/ML 2 ML VIAL IV PRN (00:52)
[2024-03-26] MEDS: ACETAMINOPHEN 1,000 MG/100 ML VIAL IV PRN (01:00)
--- NOTE | 2024-03-26 06:21 | Communication Note ---
Date of Service: March 26, 2024 Notified by nursing that patient was having multiple bouts of emesis which appeared dark to red in color, this began after patient ate some fruit and y ogurt. Nursing noted concern for possible aspiration as his breath sounds were course. Temp elevated to 38.4C, ordered IV tyelnol and Zofran. SpO2 dropped but returned to normal with supplemental oxygen. I ordered a KUB and CXR and went to bedside, patient was in no acute distress but endorsed some ongoing nausea. Upon review of x-ray images, there was concern for possible SBO so decision was made to place NG tube. Location was confirmed with x-ray and NGT placed to low, intermittent suction.
--- NOTE | 2024-03-26 07:55 | XRay Report ---
XR chest 1V portable HISTORY: 88 years-old Male possible aspiration COMPARISON: Chest radiograph 03/25/2024, chest CT 01/01/2024 TECHNIQUE: AP view of the chest FINDINGS: Cardiac silhouette is enlarged. Left subclavian pacer. Median sternotomy with a few fractured sternot smitha wires. Pulmonary vascular congestion with interstitial coarsening. Fusiform dilation of the thora cic aorta better seen on prior exam. Degenerative changes of the shoulders and spine. Gaseous distent ion of the hepatic flexure. IMPRESSION: Cardiomegaly with pulmonary vascular congestion and probable mild pulmonary edema. ACT 112: Negative or not required by law. The above report was generated using voice recognition software. It may contain grammatical, syntax o r spelling errors. Electronically signed by: Artemio Haider M.D. 03/26/2024 7:54 AM
--- NOTE | 2024-03-26 08:17 | XRay Report ---
KUB HISTORY: Status post placement of an enteric tube NG placement COMPARISON: KUB of same day FINDINGS: Cardiomegaly. Median sternotomy with prosthetic aortic valve. Partially imaged pacer leads. Status post placement of an enteric tube with distal tip projecting over the mid stomach. Multifocal osteoblastic skeletal metastasis redemonstrated. Mild gaseous distention of the colon with moderate to extensive fecal retention. No renal calculi. No ureteral calculi. No pneumoperitoneum or pneumato sis. No fracture. IMPRESSION: 1 distal tip enteric tube projects over the mid stomach. 2. Multifocal osteoblastic skeletal metastasis redemonstrated. 3. Moderate to extensive fecal retention. ACT 112: Negative or not required by law. The above report was generated using voice recognition software. It may contain grammatical, syntax o r spelling errors. Electronically signed by: Artemio Haider M.D. 03/26/2024 8:16 AM
--- NOTE | 2024-03-26 08:30 | XRay Report ---
KUB HISTORY: Acute abdominal pain possible sbo COMPARISON: CT 12/31/2023 FINDINGS: Moderate to extensive fecal retention with gaseous distention of the large bowel. No defini te small bowel distention is identified. No renal calculi. No ureteral calculi. No pneumoperitoneum or pneumatosis. Multifocal skeletal osteoblastic metastasis redemonstrated. No fracture. IMPRESSION: 1. Constipation with gaseous distention of the large bowel. Follow-up recommended in order to exclude a sigmoid volvulus. 2. Extensive osteoblastic skeletal metastasis redemonstrated. 3. No definite evidence of a small bowel obstruction. ACT 112: Negative or not required by law. The above report was generated using voice recognition software. It may contain grammatical, syntax o r spelling errors. Electronically signed by: Artemio Haider M.D. 03/26/2024 8:28 AM
[2024-03-26 08:54] LABS: Hematocrit (blood only) 36.9 % (42.0-52.0); Hemoglobin 11.8 g/dl (14.0-18.0); Mean Corpuscular Hemoglobin 31.1 pg (25.0-34.0); Mean Corpuscular Volume 97.4 fL (80.0-100.0); Mean Platelet Volume 9.3 fL (9.4-12.4); Platelet Count 145 K/uL (130-400); RDW Coefficient of Variation 15.5 % (11.5-14.5); RDW Standard Deviation 55.4 fL (36.4-46.3); Red Blood Count 3.79 M/uL (4.70-6.10); White Blood Count 7.64 K/ul (4.8-10.8)
[2024-03-26 09:11] LABS: Creatinine Clr Calc Pharmacy 63.2 ml/min; Est GFR (Non-African American) 77.6 ml/min; Potassium 4.2 mmol/L (3.5-5.1)
[2024-03-26] MEDS: APIXABAN 5 MG TABLET PO SCH (09:24)
[2024-03-26] MEDS: FINASTERIDE 5 MG TAB PO SCH (09:24)
[2024-03-26] MEDS: CYANOCOBALAMIN (B-12) 2,500 MCG TABLET PO SCH (09:24)
[2024-03-26] MEDS: ATORVASTATIN 20 MG TAB PO SCH (09:24)
[2024-03-26] MEDS: LORATADINE 10 MG TAB PO SCH (09:24)
[2024-03-26] MEDS: OPTIRAY 320 100ml IV ONE (09:44)
[2024-03-26] MEDS: DOCUSATE SODIUM 100 MG CAP PO SCH (09:58)
--- NOTE | 2024-03-26 10:46 | Surgery Consultation ---
Date of Consultation March 26, 2024 Assessment & Plan (1) Ileus: This is almost surely an ileus due to multifactorial comorbidities. No indication for surgical intervention. Agree with NG tube and rehydration. Will repeat KUB tomorrow. (2) Ambulatory dysfunction: (3) Generalized weakness: (4) Prostate cancer: (5) Metastasis: (6) Alcohol use disorder: (7) Coronary artery disease: (8) Second degree atrioventricular block by electrocardiogram: History of Present Illness Attending Physician: Heriberto Monique History of Present Illness 88-year-old male with metastatic prostate cancer presents with generalized weakness malnutrition etc. While he was here he had an episode of nausea vomiting and imaging revealed potential ileus. Currently has NG tube in place. He is denying abdominal pain. He states he has never had abdominal surgery. Allergies Allergy/AdvReac Type Severity Reaction Status Date / Time No Known Drug Allergies Allergy Unknown Unknown Verified 03/25/24 18:08 Home Medications Medication Instructions Recorded Confirmed Type docusate sodium 100 mg capsule 100 mg PO DAILY #30 caps 12/03/22 03/25/24 Rx loratadine 10 mg tablet 10 mg PO DAILY #90 tabs 05/26/23 03/25/24 Rx apixaban 5 mg tablet (Eliquis) 5 mg PO BID #180 tabs 06/29/23 03/25/24 Rx finasteride 5 mg tablet 5 mg PO DAILY #90 tabs 10/06/23 03/25/24 Rx mecobalamin (vitamin B12) 2,500 2,500 mcg PO DAILY #90 tabs 01/28/24 03/25/24 Rx mcg chewable tablet amoxicillin 500 mg capsule 2,000 mg PO UD 02/09/24 03/25/24 History atorvastatin 20 mg tablet (Lipitor) 20 mg PO DAILY 02/09/24 03/25/24 History Patient History Medical History Amaurosis fugax of right eye Unsatisfactory living conditions Atrial fibrillation, controlled Sexual dysfunction Sensorineural hearing loss (SNHL) of both ears Hyperlipidemia BPH (benign prostatic hyperplasia) Severe aortic stenosis (~2007) Generalized osteoarthritis Colitis Surgical History Status post placement of cardiac pacemaker History of local excision of skin lesion History of colonoscopy S/P aortic valve replacement (~2007) Family History Unknown No pertinent family history Other No family history of allergies No family history of bleeding disorder Denies family history of Hearing loss Heart disease Cancer Hypertension Stroke Asthma Social History Smoking Status: Never smoker Second Hand Exposure: No; Do You Dip or Chew Tobacco: No; Tobacco Cessation Education Requested by Patient: No Hx Alcohol Use: Yes Alcohol type: wine and hard liquor Alcohol Intake Frequency: 4 or More x per/Week Alcohol Intake Frequency Comment: 2-3 drinks per day with a meal Hx Substance Use: No Preferred Language: [place] Communication Ability: Effective Visual Impairment: Limited Hearing Ability: Hard of Hearing Control Cabinet Assembler Required: No Beliefs That Will Affect Care: None marital status: Single Current Living Situation: Alone current occupational status: retired How many Children do You have: 0 Other Information That Helps Us Care for You: No Feels Safe at Home: Yes and No Is there a partner from a previous relationship who is making you feel unsafe now?: No Any Concerns about Your Family Situation: No Safety Concerns: Afraid for Self Childhood Exposure to Second-Hand Smoke: No Diet: regular caffeine: Yes (drinks coffee or tea daily ) Dental Care, Regularly: Yes Physical Activity Frequency: Does not Exercise Seatbelt Use: always Sunscreen Use: Yes Assistive Devices: Cane, Glasses, Hearing Aid - Bilateral and Walker Review of Systems Review of Systems: All systems reviewed & are unremarkable except as noted in HPI & below Physical Exam Constitutional: WD/WN, vitals as above no acute distress and not ill appearing Eyes: PERRL, conjunctivae normal, anicteric sclerae EOM intact bilaterally ENMT: external ear and nose normal, oropharynx normal Ears: no hearing impairment Neck: trachea midline, no thyromegaly Respiratory: normal respiratory effort; no respiratory distress and does not use accessory muscles Cardiovascular: Rate/Rhythm: regular rate and regular rhythm Gastrointestinal (Abdomen): Soft. Nondistended nontender. There are no visible abdominal incisions. There is no palpable abnormality. Skin: no rashes, warm and dry Psychiatric: Orientation: alert, oriented x 3 and cooperative Results & Data Vital Signs (Past 12 Hours) Vital Signs Temp Pulse Pulse Resp BP Pulse Ox O2 Del Method 03/26/24 07:05 38.3 C H 69 18 99/57 L 92 Room Air 03/26/24 02:10 38.4 C H 03/26/24 00:43 39.0 C H 88 20 131/63 88 L Room Air PG Care Time/CCT Total # of Minutes Spent Total Time Spent with Patient: Total time spent is greater than 50% in coordination of care (as documented) at patient's floor/unit and/or counseling patient: Coding Level of Care Code 37937 INT INP/OBS CARE 2/55MIN Diagnoses Ileus K56.7 Ambulatory dysfunction R26.2 Generalized weakness R53.1 Prostate cancer C61 Metastasis C79.9 Alcohol use disorder F10.90 Coronary artery disease involving jackson coronary artery of jackson heart without angina pectoris I25.10 Coronary Disease-Associated Artery/Lesion type: jackson artery [place] vs. transplanted heart: jackson heart Associated angina: without angina Second degree atrioventricular block by electrocardiogram I44.1 (7) Coronary artery disease Coronary Disease-Associated Artery/Lesion type: jackson artery [place] vs. transplanted heart: jackson heart Associated angina: without angina Qualified Code(s): I25.10 - Atherosclerotic heart disease of jackson coronary artery without angina pectoris
--- NOTE | 2024-03-26 10:51 | CT Scan Report ---
ABDOMEN AND PELVIS CT WITH IV CONTRAST CT DOSE: 904.78 mGy.cm HISTORY: Acute onset abdominal pain was small bowel obstruct SBO concern, metastatic prostate cancer TECHNIQUE: Multiaxial CT images of the abdomen and pelvis were performed following the IV administrat ion of 93 cc of Optiray, A dose lowering technique was utilized adhering to the principles of ALARA. COMPARISON STUDY: KUB of same day, CT 12/31/2023 FINDINGS: Cardiomegaly with median sternotomy. Extensive coronary artery calcifications. Partially im aged pacer leads. Perform dilation of the ascending thoracic aorta, 4.6 cm. Trace pleural effusions. Patchy right lower lobe predominant consolidative and reticular nodular opacities. There is no free a ir. Unremarkable spleen, pancreas and adrenal glands. Cholelithiasis. 9 mm hypodense left hepatic lob e focus on image 87 series 3 suggestive of a cyst which is unchanged. Patency of the hepatic and port al veins. There is no hydronephrosis. There are a few subcentimeter hypodensities of the kidneys which are too small to characterize, likely cysts. Urinary bladder wall thickening. Anterosuperior bladder dome div erticulum. Heterogeneously thickened prostate with calcifications redemonstrated. Atherosclerosis of the aorta. Fusiform dilation of the celiac artery measures 1.3 cm, stable from prior. Enteric tube courses in the stomach, distal tip in the gastric body. No small bowel obstruction. Path ologic nodular circumferential wall thickening of the distal sigmoid and rectum with adjacent perirec lisa inflammation redemonstrated. Subcentimeter perirectal lymph nodes. -Distention of the colon with moderate fecal retention. There is wall thickening of the cecum and ileocecal valve. Noninflamed appe ndix. Trace abdominal pelvic ascites. There is mild generalized body wall edema. Small fat and fluid filled right inguinal hernia. Extensive osteoblastic skeletal metastasis redemonstrated. No definite acute pathologic fracture identified. Mild lumbar levoscoliosis. IMPRESSION: 1. No small bowel obstruction or pneumoperitoneum. 2. Nodular irregular circumferential wall thickening of the distal sigmoid and rectum with perirectal inflammation subcentimeter lymph nodes redemonstrated. There is luminal narrowing of the inferior re ctum without high-grade obstruction Correlation with endoscopy recommended to exclude malignancy. 3. Additional wall thickening noted within the cecum and proximal ascending colon with partial disten tion. 4. Prostatomegaly with evidence of chronic outlet obstruction. 5. Right basilar predominant opacities suggestive of pneumonia versus aspiration pneumonitis. 6. Extensive multifocal osteoblastic skeletal metastasis redemonstrated. 7. Cholelithiasis. 8. Additional findings as above. ACT 112: Negative or not required by law. The above report was generated using voice recognition software. It may contain grammatical, syntax o r spelling errors. Electronically signed by: Artemio Haider M.D. 03/26/2024 10:48 AM
--- NOTE | 2024-03-26 13:55 | Hospitalist Progress Note ---
Date of Service March 26, 2024 Assessment & Plan (1) Generalized weakness: Plan: Patient presented to the ER on 03/25 for weakness. 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 nodular irregular circumferential wall thickening of the distal sigmoid and rectum w/ melania-rectal inflammation subcentimeter lymph nodes redemonstrated. Luminal narrowing of inferior rectum w/o high grade obstruction. additional wall thickening within cecum and proximal ascending colon. Prostatomegaly w/ evidence of chronic outlet obstruction. Right basilar predominant opacities suggestive of pneumonia vs aspiration pneumonitis. extensive multifocal osteoblastic skeletal mets. KUB: constipation w/ gaseous distention of large bowel. f/o recommended to exclude sigmoid volvulus. negative for SBO Labs reviewed 03/26: CBC: WBC WNL, hgb 11.8 BMP: electrolytes, kidney function stable BNP: 602 Respiratory biofire negative UA negative for infection NG tube in place Discussion of goals for treatment took place 03/26 - patient thinking about his options Spoke with patients emergency contact via phone to update her - she is going to try to contact patient to aid in his decision making process Friend did state patient's living conditions include an unkempt house with no central heat. She believes he is living on the first floor but not entirely sure. Reports he lives alone with no help. Surgery consulted 03/26 for ileus - consult reviewed recommending supportive care and NGT Oncology consult pending MRI brain pending PT/OT consults pending, patient will likely require placement upon discharge given his living situation may be unsafe for him to return home too. 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 MRI brain pending Await patient's discussion on his treatment goals Oncology consult appreciated (3) Atrial fibrillation: Plan: Rate controlled Afib with stable vitals;Previous ECGs show Afib too. Rate 84 bpm. QT 334. No acute ischemic changes Under Eliquis for S/P Aortic valve replacement. Implantable Cardiac Device insitu (4) H/O aortic valve replacement: Plan: S/P Valve replacement for Severe Aortic Valve stenosis Under Eliquis Clinically BL leg edema, no gallop in heart exam. Chest Xray: pulmonary vascular congestion with potential pulmonary edema. Last Echo( 08/14/22): EF 55-60%/ Grade I DD, mild concentric LVH, Prosthetic valve seated normally and functioned normal. BNP: 602 03/26 Lasix dose held due to patient being hypotensive all day. (BP: 94/56) - will reassess in AM if safe to resume Plan Disposition Admit: Med/ Surg Diet: Regular Diet Code status: Full code DVT prophylaxis: Under Eliquis Discussed with patients emergency contact via phone 03/26 Admission and Anticipated Discharge Date Admission Date: March 25, 2024 Subjective Patient seen and examined this morning. NG tube placed. Patient reports discomfort from NG tube. Also complaining of leg and arm pain. Discussion of treatment goals placed with patient today. Patient would like to think more about his decision prior to making it. Discussed aggressive treatment for his metastatic cancer vs hospice care. Physical Exam 2 Constitutional: + ill appearing and + disheveled Eyes: PERRL, conjunctivae normal, anicteric sclerae Respiratory: rales b/l Cardiovascular: RRR, no murmur, no edema Skin: no rashes, warm and dry Psychiatric: A+Ox3, euthymic affect Results & Data Results & Data Vital Signs (Past 12 Hours) Vital Signs Temp Pulse Resp BP Pulse Ox O2 Del Method 03/26/24 10:38 Room Air 03/26/24 07:05 38.3 C H 69 18 99/57 L 92 Room Air 03/26/24 02:10 38.4 C H Laboratory Results 03/26/24 08:05 03/26/24 08:05 PG Care Time/CCT Total # of Minutes Spent Total Time Spent with Patient: Total time spent is greater than 50% in coordination of care (as documented) at patient's floor/unit and/or counseling patient: Coding Level of Care Code 97737 SUB INP/OBS CARE 3/50MIN Diagnoses Generalized weakness R53.1 Prostate cancer C61 Chronic atrial fibrillation I48.20 Atrial fibrillation type: unspecified chronic H/O aortic valve replacement Z95.2 (3) Atrial fibrillation Atrial fibrillation type: unspecified chronic Qualified Code(s): I48.20 - Chronic atrial fibrillation, unspecified
--- NOTE | 2024-03-26 16:19 | Oncology Consultation ---
Date of Consultation March 26, 2024 Assessment & Plan (1) Prostate cancer: had a brief discussion with the patient however I have not sure whether he is able to comprehend everything I said. His chief concern today was that he had a lot of discomfort because of the NG tube. Overall his options are limited given the advanced age, high-volume disease, however will want to review with the patient is more stable medically. If he recovers from this acute illness and acute ileus then may consider androgen deprivation therapy as a single modality treatment. He is definitely not a candidate for chemotherapy. There are no other options at this point given the advanced age as they will be detrimental to his overall health. Would not recommend initiation of any kind of therapy while the patient is acutely admitted to the hospital. Plan Medical oncology will continue to follow the patient and continue having a discussion regarding his goals regarding prostate cancer. Thank you for this interesting oncological consult. History of Present Illness Reason for Consultation: Metastatic prostate cancer Attending Physician: Heriberto Monique History of Present Illness the patient is a very pleasant 88-year-old gentleman very well-known to me who was recently diagnosed with metastatic prostate cancer however before we could discuss options in the clinic he did not show up. He was diagnosed based off of bone biopsy performed on 02/17/2024, subsequently was set up with me in the oncology clinic however the patient no showed. He was evaluated by urology colleagues who recommended androgen deprivation therapy. Currently the patient is admitted to the hospital with generalized weakness, fatigue as well as ileus. He has been evaluated by our surgery colleagues. He has an NG tube in place which is affecting his talking and thinking. He has not made up a decision about metastatic prostate cancer at this point. Allergies Allergy/AdvReac Type Severity Reaction Status Date / Time No Known Drug Allergies Allergy Unknown Unknown Verified 03/25/24 18:08 Home Medications Medication Instructions Recorded Confirmed Type docusate sodium 100 mg capsule 100 mg PO DAILY #30 caps 12/03/22 03/25/24 Rx loratadine 10 mg tablet 10 mg PO DAILY #90 tabs 05/26/23 03/25/24 Rx apixaban 5 mg tablet (Eliquis) 5 mg PO BID #180 tabs 06/29/23 03/25/24 Rx finasteride 5 mg tablet 5 mg PO DAILY #90 tabs 10/06/23 03/25/24 Rx mecobalamin (vitamin B12) 2,500 2,500 mcg PO DAILY #90 tabs 01/28/24 03/25/24 Rx mcg chewable tablet amoxicillin 500 mg capsule 2,000 mg PO UD 02/09/24 03/25/24 History atorvastatin 20 mg tablet (Lipitor) 20 mg PO DAILY 02/09/24 03/25/24 History Patient History Medical History Amaurosis fugax of right eye Unsatisfactory living conditions Atrial fibrillation, controlled Sexual dysfunction Sensorineural hearing loss (SNHL) of both ears Hyperlipidemia BPH (benign prostatic hyperplasia) Severe aortic stenosis (~2007) Generalized osteoarthritis Colitis Surgical History Status post placement of cardiac pacemaker History of local excision of skin lesion History of colonoscopy S/P aortic valve replacement (~2007) Family History Unknown No pertinent family history Other No family history of allergies No family history of bleeding disorder Denies family history of Hearing loss Heart disease Cancer Hypertension Stroke Asthma Social History Smoking Status: Never smoker Second Hand Exposure: No; Do You Dip or Chew Tobacco: No; Tobacco Cessation Education Requested by Patient: No Hx Alcohol Use: Yes Alcohol type: wine and hard liquor Alcohol Intake Frequency: 4 or More x per/Week Alcohol Intake Frequency Comment: 2-3 drinks per day with a meal Hx Substance Use: No Preferred Language: Greek Communication Ability: Effective Visual Impairment: Limited Hearing Ability: Hard of Hearing 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: No Beliefs That Will Affect Care: None marital status: Single Current Living Situation: Alone current occupational status: retired How many Children do You have: 0 Other Information That Helps Us Care for You: No Feels Safe at Home: Yes and No Is there a partner from a previous relationship who is making you feel unsafe now?: No Any Concerns about Your Family Situation: No Safety Concerns: Afraid for Self Childhood Exposure to Second-Hand Smoke: No Diet: regular caffeine: Yes (drinks coffee or tea daily ) Dental Care, Regularly: Yes Physical Activity Frequency: Does not Exercise Seatbelt Use: always Sunscreen Use: Yes Assistive Devices: Cane, Glasses, Hearing Aid - Bilateral and Walker Review of Systems Review of Systems: Unobtainable due to cognitive status Constitutional: as per Subjective / HPI Eyes: as per Subjective / HPI Ear, Nose, Mouth, Throat: as per Subjective / HPI Respiratory: as per Subjective / HPI Cardiovascular: as per Subjective / HPI Gastrointestinal: as per Subjective / HPI Genitourinary: + as per Subjective / HPI Musculoskeletal: as per Subjective / HPI Integumentary: as per Subjective / HPI Neurologic: as per Subjective / HPI Psychiatric: as per Subjective / HPI Endocrine: as per Subjective / HPI Physical Exam Physical Exam: Patient lying in the bed comfortably, with NG tube in place Constitutional: WD/WN, vitals as above Eyes: PERRL, conjunctivae normal, anicteric sclerae ENMT: external ear and nose normal, oropharynx normal Neck: trachea midline, no thyromegaly Respiratory: normal respiratory effort, lungs clear to auscultation Cardiovascular: RRR, no murmur, no edema Gastrointestinal (Abdomen): normal bowel sounds, soft, nontender, no hepatosplenomegaly Musculoskeletal: no cyanosis or clubbing, extremities motor strength 5/5 Skin: no rashes, warm and dry Neurologic: patellar DTR's 2+ bilat, sensation intact Results & Data Vital Signs (Past 12 Hours) Vital Signs Temp Pulse Resp BP Pulse Ox O2 Del Method 03/26/24 14:46 36.6 C 54 L 16 94/56 L 94 Room Air 03/26/24 10:38 Room Air 03/26/24 07:05 38.3 C H 69 18 99/57 L 92 Room Air
[2024-03-26] MEDS: CHLORASEPTIC (PHENOL) 1.4% SOLN 180 ML BTL MT PRN (22:09)
--- NOTE | 2024-03-27 05:40 | Surgery Progress Note ---
Date of Service March 27, 2024 Assessment & Plan (1) Ileus: Plan: The patient has been admitted on the hospitalist service. Continue surgical care as follows: The patient has been noted to have a bowel movement suggesting resolution/improvement of his ileus The patient is n.p.o. with NG tube in place and review of medicines show he is not receiving any intravenous fluids. I have addressed this with the primary service and they have added intravenous fluids. KUB has been ordered for this morning and is pending will check results when available Pending KUB results consideration may be given to removing NG tube and slowly advancing diet beginning with clear liquids as he has had a bowel movement. Increase mobilization as able Check a.m. labs when available Additional recommendations be forthcoming based on pending labs/imaging and his clinical course as it unfolds as above. if KUB pending...if improved can pull ngt and start clears. Admission and Anticipated Discharge Date Admission Date: March 25, 2024 Subjective Patient resting comfortably in bed. He denies any nausea or vomiting and notes his abdomen is nontender. I discussed with nurse attending the patient and patient did have a bowel movement earlier this shift. Physical Exam Gastrointestinal (Abdomen): Abdomen is soft, nonrigid, nondistended. There is no pain noted with palpation. NG tube is in place and has drained approximately 600 cc the last shift. Results & Data Vital Signs (Past 12 Hours) Vital Signs Temp Pulse Resp BP Pulse Ox O2 Del Method 03/26/24 21:11 36.8 C 64 20 136/75 92 Room Air 03/26/24 20:00 Room Air PG Care Time/CCT Total # of Minutes Spent Total Time Spent with Patient: Total time spent is greater than 50% in coordination of care (as documented) at patient's floor/unit and/or counseling patient: Coding Level of Care Code 10909 SUB INP/OBS CARE 125MIN Diagnoses Ileus K56.7
[2024-03-27] MEDS: LACTATED RINGER'S 1,000 ML IV SCH (06:01)
[2024-03-27 06:13] LABS: Hemoglobin 12.8 g/dl (14.0-18.0); Mean Corpuscular Volume 96.9 fL (80.0-100.0); Mean Platelet Volume 9.4 fL (9.4-12.4); Platelet Count 158 K/uL (130-400); RDW Coefficient of Variation 15.4 % (11.5-14.5); RDW Standard Deviation 55.6 fL (36.4-46.3); Red Blood Count 4.13 M/uL (4.70-6.10); White Blood Count 7.75 K/ul (4.8-10.8)
[2024-03-27 06:33] LABS: BUN Creatinine Ratio 33.3 (10-20); Calcium 8.4 mg/dl (8.6-10.3); Creatinine Clr Calc Pharmacy 65.6 ml/min; Est GFR (African American) 91.3 ml/min; Est GFR (Non-African American) 78.8 ml/min; Potassium 3.8 mmol/L (3.5-5.1)
--- NOTE | 2024-03-27 10:44 | XRay Report ---
KUB HISTORY: Acute onset abdominal pain ileus COMPARISON: CT 03/26/2024 FINDINGS: Distended contrast-filled urinary bladder. Gaseous distention of the large bowel with moder ate colonic fecal retention is similar to prior. No renal calculi. No ureteral calculi. No pneumoper itoneum or pneumatosis. Multifocal osteoblastic skeletal metastasis redemonstrated. Sternotomy wires are present. Distal tip of enteric tube projects over the stomach. No fracture. IMPRESSION: 1. Gaseous distention of the large bowel redemonstrated. 2. Distal tip of enteric tube projects over the gastric body. 3. Extensive osteoblastic skeletal metastasis redemonstrated. ACT 112: Negative or not required by law. The above report was generated using voice recognition software. It may contain grammatical, syntax o r spelling errors. Electronically signed by: Artemio Haider M.D. 03/27/2024 10:41 AM
--- NOTE | 2024-03-27 12:03 | Billing Data ---
Date of Service March 25, 2024 Coding Level of Care Code 95132 INT INP/OBS CARE
--- NOTE | 2024-03-27 12:47 | Hospitalist Progress Note ---
Date of Service March 27, 2024 Assessment & Plan (1) Generalized weakness: Plan: Patient presented to the ER on 03/25 for weakness. 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 nodular irregular circumferential wall thickening of the distal sigmoid and rectum w/ melania-rectal inflammation subcentimeter lymph nodes redemonstrated. Luminal narrowing of inferior rectum w/o high grade obstruction. additional wall thickening within cecum and proximal ascending colon. Prostatomegaly w/ evidence of chronic outlet obstruction. Right basilar predominant opacities suggestive of pneumonia vs aspiration pneumonitis. extensive multifocal osteoblastic skeletal mets. KUB 03/26: constipation w/ gaseous distention of large bowel. f/o recommended to exclude sigmoid volvulus. negative for SBO KUB 03/27: gaseous distention of large bowel. Extensive osteoblastic skeletal metastasis Labs reviewed 03/27: CBC: WBC WNL, hgb 12.8 BMP: electrolytes, kidney function stable BNP: 359 Respiratory biofire negative UA negative for infection Discussion of goals for treatment took place 03/26 - patient thinking about his options Spoke with patients emergency contact via phone to update her - she is going to try to contact patient to aid in his decision making process Friend did state patient's living conditions include an unkempt house with no central heat. She believes he is living on the first floor but not entirely sure. Reports he lives alone with no help. Surgery consulted 03/26 for ileus - NG removed 03/27 Oncology consult reviewed 03/27 Limited options for treatment - consider androgen deprivation therapy Not candidate for chemotherapy Recommend not initiating therapy while patient is acutely ill in the hospital KUB from 03/27 showed enlarged bladder Bladder scan completed showing 1065mL Bee catheter then placed and patient had 1150mL output immediately MRI brain pending PT/OT consults pending, patient will likely require placement upon discharge given his living situation may be unsafe for him to return home AM CBC, BMP, BNP (2) Prostate cancer: Plan: Metastatic Prostrate cancer; 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 MRI Head with/o contrast ordered. Plan: Oncology consult to discuss goals of androgen deprivation therapy (3) Atrial fibrillation: Plan: Rate controlled Afib with stable vitals;Previous ECGs show Afib too. Rate 84 bpm. QT 334. No acute ischemic changes Under Eliquis for S/P Aortic valve replacement. Implantable Cardiac Device insitu (4) H/O aortic valve replacement: Plan: S/P Valve replacement for Severe Aortic Valve stenosis Under Eliquis Clinically BL leg edema, no gallop in heart exam. Chest Xray: pulmonary vascular congestion with potential pulmonary edema. Last Echo( 08/14/22): EF 55-60%/ Grade I DD, mild concentric LVH, Prosthetic valve seated normally and functioned normal. BNP: 380-------<408( 01/28) Continue Lasix 20 mg Plan Disposition Admit: Med/ Surg Diet: Regular Diet Code status: Full code DVT prophylaxis: Under Eliquis Admission and Anticipated Discharge Date Admission Date: March 25, 2024 Subjective Patient seen and examined this morning. Patient alert and oriented. Patient complains of discomfort with NG tube. Patient also complains of lower extremity pain. Patient unsure of how he would like to proceed with treatment. Patient states he is open to discussing treatment and has questions but feels he is too tired today and would like to try again tomorrow. Physical Exam 2 Constitutional: + ill appearing and + disheveled Eyes: PERRL, conjunctivae normal, anicteric sclerae Respiratory: normal respiratory effort, lungs clear to auscultation Cardiovascular: RRR, no murmur, no edema Skin: no rashes, warm and dry Psychiatric: A+Ox3, euthymic affect Results & Data Results & Data Vital Signs (Past 12 Hours) Vital Signs Temp Pulse Resp BP Pulse Ox O2 Del Method 03/27/24 07:11 36.9 C 76 16 148/79 H 91 Room Air 03/27/24 07:09 Room Air Laboratory Results 03/27/24 05:28 03/27/24 05:28 PG Care Time/CCT Total # of Minutes Spent Total Time Spent with Patient: Total time spent is greater than 50% in coordination of care (as documented) at patient's floor/unit and/or counseling patient: Coding Level of Care Code 45429 SUB INP/OBS CARE 3/50MIN Diagnoses Generalized weakness R53.1 Prostate cancer C61 Chronic atrial fibrillation I48.20 Atrial fibrillation type: unspecified chronic H/O aortic valve replacement Z95.2 (3) Atrial fibrillation Atrial fibrillation type: unspecified chronic Qualified Code(s): I48.20 - Chronic atrial fibrillation, unspecified
--- NOTE | 2024-03-27 21:37 | Electrocardiogram Report ---
Test Reason : Blood Pressure : */* mmHG Vent. Rate : 84 BPM Atrial Rate : * BPM P-R Int : * ms QRS Dur : 80 ms QT Int : 334 ms P-R-T Axes : * 7 62 degrees QTcB Int : 394 ms Atrial fibrillation with frequent ventricular-paced complexes and with premature ventricular or aberr antly conducted complexes Nonspecific T wave abnormality Abnormal ECG When compared with ECG of 05-May-2023 02:42, No significant change was found Confirmed by Binh Cardona ([id number]) on 03/27/2024 9:37:26 PM Referred By: REFERRED SELF Confirmed By: Binh Cardona
[2024-03-27] MEDS: MELATONIN 3 MG TAB PO PRN (22:50)
[2024-03-28 06:41] LABS: Hematocrit (blood only) 35.9 % (42.0-52.0); Mean Corpuscular Hemoglobin 31.7 pg (25.0-34.0); Mean Corpuscular Hgb Conc 33.4 g/dL (32.0-36.0); Mean Platelet Volume 9.8 fL (9.4-12.4); Platelet Count 167 K/uL (130-400); RDW Coefficient of Variation 15.3 % (11.5-14.5); RDW Standard Deviation 53.6 fL (36.4-46.3); Red Blood Count 3.78 M/uL (4.70-6.10); White Blood Count 5.79 K/ul (4.8-10.8)
[2024-03-28 07:02] LABS: BUN Creatinine Ratio 42.7 (10-20); Calcium 8.2 mg/dl (8.6-10.3); Creatinine Clr Calc Pharmacy 64.8 ml/min; Est GFR (African American) 90.9 ml/min; Est GFR (Non-African American) 78.4 ml/min; Potassium 3.4 mmol/L (3.5-5.1)
[2024-03-28] MEDS: POTASSIUM CHLORIDE CRTAB 20 MEQ TABCR PO STA (08:55)
--- NOTE | 2024-03-28 09:06 | Surgery Progress Note ---
Date of Service March 28, 2024 Assessment & Plan (1) Ileus: Plan: Having BMs denies abd pain tolerating clears , will advance to fulls VSS Admission and Anticipated Discharge Date Admission Date: March 25, 2024 Supervising Physician Co-Signing Physician Notes Having BMs Advance to full's Will follow Subjective pt reports +BMs no n/v , fever, chills tolerating clears Review of Systems Constitutional: no fever and no chills Respiratory: no dyspnea Cardiovascular: no chest pain Gastrointestinal: no abdominal pain, no nausea and no vomiting Physical Exam Constitutional: cooperative and comfortable; no acute distress Cardiovascular: Rate/Rhythm: regular rate Gastrointestinal (Abdomen): Inspection/Auscultation: abdomen not distended Percussion/Palpation: abdomen soft; abdomen nontender Results & Data Vital Signs (Past 12 Hours) Vital Signs Temp Pulse Resp BP Pulse Ox O2 Del Method 03/28/24 07:37 97.9 F 66 16 104/64 94 Room Air 03/28/24 07:05 Room Air Results CBC w Diff Results: RBC 3.78 M/uL (4.70-6.10) L 03/28/24 WBC 5.79 K/ul (4.8-10.8) 03/28/24 Hgb 12.0 g/dl (14.0-18.0) L 03/28/24 Hct 35.9 % (42.0-52.0) L 03/28/24 MCV 95.0 fL (80.0-100.0) 03/28/24 MCH 31.7 pg (25.0-34.0) 03/28/24 MCHC 33.4 g/dL (32.0-36.0) 03/28/24 RDW Standard Deviation 53.6 fL (36.4-46.3) H 03/28/24 RDW Coefficient of Variation 15.3 % (11.5-14.5) H 03/28/24 Plt Count 167 K/uL (130-400) 03/28/24 MPV 9.8 fL (9.4-12.4) 03/28/24 Neutrophils (%) (Auto) 83.7 % 03/25/24 Lymphocytes (%) (Auto) 7.8 % 03/25/24 Monocytes # (Auto) 0.58 K/uL (0.11-0.59) 03/25/24 Eosinophils # (Auto) 0.01 K/uL (0.00-0.50) 03/25/24 Immature Granulocyte % (Auto) 0.3 % 03/25/24 Neutrophils # (Auto) 6.22 K/uL (1.40-6.50) 03/25/24 Lymphocytes # (Auto) 0.58 K/uL (1.20-3.40) L 03/25/24 Monocytes # (Auto) 0.58 K/uL (0.11-0.59) 03/25/24 Eosinophils # (Auto) 0.01 K/uL (0.00-0.50) 03/25/24 Basophils # (Auto) 0.02 K/uL (0.00-0.20) 03/25/24 Immature Granulocyte # (Auto) 0.02 K/uL (0.01-0.20) 4 PG Care Time/CCT Total # of Minutes Spent Total Time Spent with Patient: Total time spent is greater than 50% in coordination of care (as documented) at patient's floor/unit and/or counseling patient: Coding Level of Care Code 66161 SUB INP/OBS CARE 125MIN Diagnoses Ileus K56.7
[2024-03-28] MEDS: GADOBUTROL 30ML VIAL IV ONE (13:13)
--- NOTE | 2024-03-28 15:41 | Hospitalist Progress Note ---
Date of Service March 28, 2024 Assessment & Plan (1) Generalized weakness: Plan: Patient presented to the ER on 03/25 for weakness. Patient with known metastatic pancreatic cancer, recently diagnosed. 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 nodular irregular circumferential wall thickening of the distal sigmoid and rectum w/ melania-rectal inflammation subcentimeter lymph nodes redemonstrated. Luminal narrowing of inferior rectum w/o high grade obstruction. additional wall thickening within cecum and proximal ascending colon. Prostatomegaly w/ evidence of chronic outlet obstruction. Right basilar predominant opacities suggestive of pneumonia vs aspiration pneumonitis. extensive multifocal osteoblastic skeletal mets. MRI brain: pending, to eval for mets Surgery consulted for ileus seen on KUB - repeat KUB gaseous distention of large bowel. Extensive osteoblastic skeletal metastasis - NG removed - advance diet to full liquids Oncology consult reviewed 03/27 Limited options for treatment - consider androgen deprivation therapy Not candidate for chemotherapy Recommend not initiating therapy while patient is acutely ill in the hospital Goals of care discussion ongoing - Emergency contact is friend in [facility] Manuel's living conditions are poor, no central heat. 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 Rate 84 bpm. QT 334. No acute ischemic changes Continue Eliquis Implantable Cardiac Device insitu (4) H/O aortic valve replacement: Plan: S/P Valve replacement for Severe Aortic Valve stenosis Chest Xray: pulmonary vascular congestion with potential pulmonary edema. Last Echo( 08/14/22): EF 55-60%/ Grade I DD, mild concentric LVH, Prosthetic valve seated normally and functioned normal. Continue Lasix 20 mg PO QAM Plan Disposition: continued inpatient stay, advancing diet DVT proh: Justine case discussed with Dr. Bro, oncology Admission and Anticipated Discharge Date Admission Date: March 25, 2024 Subjective Patient seen lying in bed, reports ongoing diarrhea since yesterday. denies shortness of breath reports that he did have supplies to straight cath himself at home and would need to do this about once every 3-4 months Review of Systems Review of Systems: All systems reviewed & are unremarkable except as noted in Subjective Physical Exam Physical Exam: General: NAD, VS as above Resp: normal respiratory effort, lungs clear to auscultation CV: afib, no murmur, Abd: normal bowel sounds, non tender, no hepatosplenomegaly Extremities: Moves all extremities, no edema Neuro: A&O x3, Skin: intact, no lesions noted Results & Data Results & Data Vital Signs (Past 12 Hours) Vital Signs Temp Pulse Resp BP Pulse Ox O2 Del Method 03/28/24 14:12 37.1 C 52 L 16 104/62 95 Room Air 03/28/24 07:37 36.6 C 66 16 104/64 94 Room Air 03/28/24 07:05 Room Air Laboratory Results CBC, chemistry, BNP reviewed PG Care Time/CCT Total # of Minutes Spent Total Time Spent with Patient: Total time spent is greater than 50% in coordination of care (as documented) at patient's floor/unit and/or counseling patient: Coding Level of Care Code 21136 SUB INP/OBS CARE 3/50MIN Diagnoses Generalized weakness R53.1 Prostate cancer C61 Chronic atrial fibrillation I48.20 Atrial fibrillation type: unspecified chronic H/O aortic valve replacement Z95.2 (3) Atrial fibrillation Atrial fibrillation type: unspecified chronic Qualified Code(s): I48.20 - Chronic atrial fibrillation, unspecified
--- NOTE | 2024-03-28 16:42 | Magnetic Resonance Report ---
MRI OF THE BRAIN WITHOUT AND WITH IV CONTRAST CLINICAL HISTORY: Metastatic prostate cancer. COMPARISON STUDY: Head CT March 25, 2024. TECHNIQUE: Utilizing a 1.5 Lucy magnet and dedicated coil, multiplanar, multiecho imaging of the br ain was performed pre and postcontrast administration. IV administration of 7.5 mL of Gadavist contr ast was uneventful. Thin cut T1 post contrast imaging was performed. FINDINGS: There are no foci of restricted diffusion to suggest acute infarct. No acute intracranial h emorrhage, midline shift or mass effect is present. Ventricular system is unremarkable for age. Basil ar cisterns are patent. There are no extra-axial collections. Flow-voids for the major intracranial v essels are present. There is no intracranial mass or pathologic enhancement. Multiple T1 hypointense lesions within the visualized portions of the cervical spine are present. There are also T1 hypointen se lesions which demonstrate enhancement within the skull base. A branching enhancing focus within th e right cerebellar hemisphere represents a developmental venous anomaly. This is of no significance. Mild white matter T2 hyperintense foci favor mild small vessel disease. IMPRESSION: 1. No acute intracranial findings. 2. No parenchymal metastases. 3. Multifocal marrow replacement consistent with metastatic prostate cancer within the skull base and visualized portions of the cervical spine. ACT 112: Negative or not required by law. Electronically signed by: Arcadio Purcell M.D. 03/28/2024 4:40 PM
[2024-03-28] MEDS: TAMSULOSIN HCL 0.4 MG CAP PO SCH (20:20)
[2024-03-29 07:39] LABS: BUN Creatinine Ratio 44.3 (10-20); Calcium 7.6 mg/dl (8.6-10.3); Creatinine Clr Calc Pharmacy 75.9 ml/min; Est GFR (Non-African American) 83.7 ml/min; Potassium 3.1 mmol/L (3.5-5.1)
--- NOTE | 2024-03-29 09:52 | Surgery Progress Note ---
Date of Service March 29, 2024 Assessment & Plan (1) Ileus: Plan: Patient has return of bowel function and tolerating a diet Surgery will sign off at this time Admission and Anticipated Discharge Date Admission Date: March 25, 2024 Subjective Patient seen and examined. Denies abdominal pain. Having bowel movements. No nausea or vomiting. Review of Systems Constitutional: no fever and no chills Ear, Nose, Mouth, Throat: no tinnitus and no dizziness Respiratory: no cough and no dyspnea Gastrointestinal: no abdominal pain, no nausea, no vomiting and no constipation Integumentary: no acne, no lesions and no changing lesions Psychiatric: no behavioral changes and no depression Physical Exam Constitutional: WD/WN, vitals as above Eyes: PERRL, conjunctivae normal, anicteric sclerae Neck: trachea midline, no thyromegaly Cardiovascular: RRR, no murmur, no edema Gastrointestinal (Abdomen): Inspection/Auscultation: abdomen normal to inspection; abdomen not distended Percussion/Palpation: abdomen soft; abdomen nontender and no guarding Musculoskeletal: no cyanosis or clubbing, extremities motor strength 5/5 Results & Data Vital Signs (Past 12 Hours) Vital Signs Temp Pulse Resp BP Pulse Ox O2 Del Method 03/29/24 06:56 36.6 C 62 16 108/58 L 93 Room Air PG Care Time/CCT Total # of Minutes Spent Total Time Spent with Patient: Total time spent is greater than 50% in coordination of care (as documented) at patient's floor/unit and/or counseling patient: Coding Level of Care Code 76872 SUB INP/OBS CARE 1/25MIN Diagnoses Ileus K56.7
[2024-03-29] MEDS: POTASSIUM CHLORIDE / WTR 10 MEQ/100 ML PLCT IV SCH (10:12)
[2024-03-29] MEDS: POTASSIUM CHLORIDE CRTAB 20 MEQ TABCR PO STA (10:12)
--- NOTE | 2024-03-29 15:14 | Hospitalist Progress Note ---
Date of Service March 29, 2024 Assessment & Plan (1) Generalized weakness: Plan: Patient presented to the ER on 03/25 for weakness. Patient with known metastatic pancreatic cancer, recently diagnosed. 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 nodular irregular circumferential wall thickening of the distal sigmoid and rectum w/ melania-rectal inflammation subcentimeter lymph nodes redemonstrated. Luminal narrowing of inferior rectum w/o high grade obstruction. additional wall thickening within cecum and proximal ascending colon. Prostatomegaly w/ evidence of chronic outlet obstruction. Right basilar predominant opacities suggestive of pneumonia vs aspiration pneumonitis. extensive multifocal osteoblastic skeletal mets. MRI brain: no brain mets, skull base mets again seen Surgery consulted for ileus seen on KUB - repeat KUB gaseous distention of large bowel. Extensive osteoblastic skeletal metastasis - NG removed - tolerating low fiber diet Oncology consult reviewed 03/27 Limited options for treatment - consider androgen deprivation therapy Not candidate for chemotherapy Recommend not initiating therapy while patient is acutely ill in the hospital Goals of care discussion ongoing - Emergency contact is friend in [facility] Manuel's living conditions are poor, no central heat. 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 Rate 84 bpm. QT 334. No acute ischemic changes Continue Eliquis ICD in place (5) H/O aortic valve replacement: Plan: S/P Valve replacement for Severe Aortic Valve stenosis Chest Xray: pulmonary vascular congestion with potential pulmonary edema. Last Echo( 08/14/22): EF 55-60%/ Grade I DD, mild concentric LVH, Prosthetic valve seated normally and functioned normal. Continue Lasix 20 mg PO QAM Plan Disposition: continued inpatient stay, advancing diet DVT proh: Eliquis Admission and Anticipated Discharge Date Admission Date: March 25, 2024 Subjective Patient seen lying in bed, reports feeling okay. discussed brain MRI results. Discussed that oncology decisions can be made on outpatient basis if needed Patient reports pain in the back of throat and some difficulty clearing phlegm Encouraged patient to get out of bed for meals will attempt to remove rouse today Review of Systems Review of Systems: All systems reviewed & are unremarkable except as noted in Subjective Physical Exam Physical Exam: General: NAD, VS as above Resp: normal respiratory effort, diminished in bases CV: afib, no murmur, Abd: normal bowel sounds, non tender, no hepatosplenomegaly Extremities: Moves all extremities, no edema Neuro: A&O x3, Skin: intact, no lesions noted Results & Data Results & Data Vital Signs (Past 12 Hours) Vital Signs Temp Pulse Resp BP Pulse Ox O2 Del Method 03/29/24 14:14 36.7 C 65 16 115/65 95 Room Air 03/29/24 08:30 Room Air 03/29/24 06:56 36.6 C 62 16 108/58 L 93 Room Air Laboratory Results BMP reviewed cdiff reviewed PG Care Time/CCT Total # of Minutes Spent Total Time Spent with Patient: Total time spent is greater than 50% in coordination of care (as documented) at patient's floor/unit and/or counseling patient: Coding Level of Care Code 64457 SUB INP/OBS CARE 3/50MIN Diagnoses Generalized weakness R53.1 Difficulty swallowing R13.10 Prostate cancer C61 Chronic atrial fibrillation I48.20 Atrial fibrillation type: unspecified chronic H/O aortic valve replacement Z95.2 (4) Atrial fibrillation Atrial fibrillation type: unspecified chronic Qualified Code(s): I48.20 - Chronic atrial fibrillation, unspecified
--- NOTE | 2024-03-30 08:19 | XRay Report ---
XR chest 1V portable HISTORY: aspiration? COMPARISON: Chest 03/26/2024. FINDINGS: No pneumothorax. No pleural effusions. The heart remains mildly enlarged. There are postste rnotomy changes and left-sided dual-chamber pacemaker. A cardiac valve prosthesis is again noted. No new focal lung consolidations. No acute fractures. Perihilar interstitial/vascular thickening consist ent with mild pulmonary edema. This is similar to the prior study. IMPRESSION: Cardiomegaly with mild interstitial pulmonary edema. This is similar to the prior study. ACT 112: Negative or not required by law. Electronically signed by: Shimon Gallardo M.D. 03/30/2024 8:18 AM
[2024-03-30 08:47] LABS: Basophils # (auto) 0.03 K/uL (0.00-0.20); Basophils % (auto) 0.5 %; Eosinophils # (auto) 0.07 K/uL (0.00-0.50); Eosinophils % (auto) 1.1 %; Hematocrit (blood only) 33.8 % (42.0-52.0); Hemoglobin 10.7 g/dl (14.0-18.0); Immature Granulocytes # (auto) 0.07 K/uL (0.01-0.20); Immature Granulocytes % (auto) 1.1 %; Lymphocytes # (auto) 0.88 K/uL (1.20-3.40); Lymphocytes % (auto) 13.3 %; Mean Corpuscular Hemoglobin 30.4 pg (25.0-34.0); Mean Corpuscular Hgb Conc 31.7 g/dL (32.0-36.0); Mean Platelet Volume 9.4 fL (9.4-12.4); Monocytes # (auto) 0.63 K/uL (0.11-0.59); Monocytes % (auto) 9.5 %; Neutrophils # (auto) 4.92 K/uL (1.40-6.50); Neutrophils % (auto) 74.5 %; Platelet Count 140 K/uL (130-400); RDW Coefficient of Variation 14.9 % (11.5-14.5); RDW Standard Deviation 52.6 fL (36.4-46.3); Red Blood Count 3.52 M/uL (4.70-6.10)
[2024-03-30 09:12] LABS: BUN Creatinine Ratio 39.2 (10-20); Calcium 7.5 mg/dl (8.6-10.3); Creatinine Clr Calc Pharmacy 71.8 ml/min; Est GFR (African American) 94.8 ml/min; Est GFR (Non-African American) 81.8 ml/min; Magnesium 1.9 mg/dl (1.7-2.4); Potassium 3.3 mmol/L (3.5-5.1)
[2024-03-30] MEDS: POTASSIUM CHLORIDE / WTR 10 MEQ/100 ML PLCT IV SCH (11:22)
[2024-03-30] MEDS: ALBUTEROL 0.083% NEBU SOLN 3 ML VIAL NEB STA (15:03)
--- NOTE | 2024-03-30 15:32 | Hospitalist Progress Note ---
Date of Service March 30, 2024 Assessment & Plan (1) Generalized weakness: Plan: Patient presented to the ER on 03/25 for weakness. Patient with known metastatic pancreatic cancer, recently diagnosed. 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 nodular irregular circumferential wall thickening of the distal sigmoid and rectum w/ melania-rectal inflammation subcentimeter lymph nodes redemonstrated. Luminal narrowing of inferior rectum w/o high grade obstruction. additional wall thickening within cecum and proximal ascending colon. Prostatomegaly w/ evidence of chronic outlet obstruction. Right basilar predominant opacities suggestive of pneumonia vs aspiration pneumonitis. extensive multifocal osteoblastic skeletal mets. MRI brain: no brain mets, skull base mets again seen Surgery consulted for ileus seen on KUB - repeat KUB gaseous distention of large bowel. Extensive osteoblastic skeletal metastasis - NG removed - tolerating low fiber diet Oncology consult reviewed 03/27 Limited options for treatment - consider androgen deprivation therapy Not candidate for chemotherapy Recommend not initiating therapy while patient is acutely ill in the hospital Goals of care discussion ongoing - Emergency contact is friend in [facility] Manuel's living conditions are poor, no central heat. 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 MRI brain pending Possible candidate for Androgen deprivation therapy - patient has not decided if he would like this Medical oncology following, but can also continue to follow outpatient Patient has issues with urinary retention on admission and rouse was placed - Rouse removed with voiding trial 03/29 and was unsuccessful and Rouse was replaced - plan to keep rouse in for now, depending on length of stay could try voiding trial in a few days otherwise recommmend urology follow up, especially with pt's upcoming decision about cancer treatment - continue Flomax - continue home finasteride (4) Atrial fibrillation: Plan: Rate controlled Afib with stable vitals;Previous ECGs show Afib too. Rate 84 bpm. QT 334. No acute ischemic changes Continue Eliquis ICD in place (5) H/O aortic valve replacement: Plan: S/P Valve replacement for Severe Aortic Valve stenosis Chest Xray: pulmonary vascular congestion with potential pulmonary edema. Last Echo( 08/14/22): EF 55-60%/ Grade I DD, mild concentric LVH, Prosthetic valve seated normally and functioned normal. Continue Lasix 20 mg PO QAM Plan Disposition: continued inpatient stay, VFSS tomorrow DVT proh: Eliquis Admission and Anticipated Discharge Date Admission Date: March 25, 2024 Subjective patient seen sitting up in the chair. States he was reluctant to get up to the chair but understands why the nurse had him do this. I discussed with him plans after discharge from the hospital and rehab he states that he plans to go home he does live alone and says the house is not in good shape right now because how ill he was prior to coming in. He realizes that he will need more help around the home and is already been in contact with the office of aging who has given him list for housekeepers, etc he still having trouble with phlegm in his throat. He was evaluated by the speech therapist today and plan for video swallow study tomorrow Review of Systems Review of Systems: All systems reviewed & are unremarkable except as noted in Subjective Physical Exam Physical Exam: General: NAD, VS as above Resp: normal respiratory effort, diminished in bases, gurgling when clearing throat CV: afib, no murmur, Abd: normal bowel sounds, non tender, soft Extremities: Moves all extremities, no edema Neuro: A&O x3, Skin: intact, no lesions noted Results & Data Results & Data Vital Signs (Past 12 Hours) Vital Signs Temp Pulse Resp BP Pulse Ox O2 Del Method 03/30/24 15:05 68 16 93 Room Air 03/30/24 14:31 36.6 C 64 16 106/64 92 Room Air 03/30/24 07:42 Room Air 03/30/24 06:59 36.6 C 61 16 101/62 92 Room Air 03/30/24 06:10 37.5 C 64 93 Room Air Laboratory Results CBC, chemistry, magnesium reviewed Diagnostic Findings chest x-ray reviewed PG Care Time/CCT Total # of Minutes Spent Total Time Spent with Patient: Total time spent is greater than 50% in coordination of care (as documented) at patient's floor/unit and/or counseling patient: Coding Level of Care Code 18312 SUB INP/OBS CARE 3/50MIN Diagnoses Generalized weakness R53.1 Difficulty swallowing R13.10 Prostate cancer C61 Chronic atrial fibrillation I48.20 Atrial fibrillation type: unspecified chronic H/O aortic valve replacement Z95.2 (4) Atrial fibrillation Atrial fibrillation type: unspecified chronic Qualified Code(s): I48.20 - Chr onic atrial fibrillation, unspecified
[2024-03-30] MEDS: CYCLOBENZAPRINE HCL 10 MG TAB PO STA (22:33)
[2024-03-30] MEDS: ALBUTEROL 0.083% NEBU SOLN 3 ML VIAL NEB PRN (23:12)
[2024-03-31] MEDS: ACETAMINOPHEN 325 MG TAB PO PRN (08:36)
--- NOTE | 2024-03-31 12:38 | Fluoroscopy Report ---
MODIFIED BARIUM SWALLOW CLINICAL HISTORY: r/o aspiration COMPARISON STUDY: None. FLUOROSCOPY TIME: 1.38 minutes. Ka,r: 4.93 mGy. TECHNIQUE: A modified barium swallow was performed in conjunction with Speech Pathology. The patient ingested varying consistencies of barium containing material. Video fluoroscopy was performed. FINDINGS: There was penetration without aspiration with thin liquids via spoon. Penetration was also noted with sips of thin liquids via cup. Trace tracheal aspiration was noted with sequential swallows of thin liquids. Trace tracheal aspiration was noted with sips of nectar thick liquids. Note was mad e of a small amount of tracheal aspiration with mildly thick liquids. No aspiration with pudding cons istency was noted. There is no aspiration with cracker and pudding consistency. Significant residuals were noted within the vallecula. There was persistent small amount of tracheal aspiration with sips of thin liquids with cup despite chin. IMPRESSION: 1. Small amount of aspiration with thin liquids and nectar thick liquids, as above. 2. Significant residuals within the vallecula with several consistencies. 3. Full recommendations by Speech pathology to follow. ACT 112: Negative or not required by law. Electronically signed by: Arcadio Purcell M.D. 03/31/2024 12:37 PM
--- NOTE | 2024-03-31 15:40 | Hospitalist Progress Note ---
Date of Service March 31, 2024 Assessment & Plan (1) Generalized weakness: Plan: Patient presented to the ER on 03/25 for weakness. Patient with known metastatic pancreatic cancer, recently diagnosed. 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 nodular irregular circumferential wall thickening of the distal sigmoid and rectum w/ melania-rectal inflammation subcentimeter lymph nodes redemonstrated. Luminal narrowing of inferior rectum w/o high grade obstruction. additional wall thickening within cecum and proximal ascending colon. Prostatomegaly w/ evidence of chronic outlet obstruction. Right basilar predominant opacities suggestive of pneumonia vs aspiration pneumonitis. extensive multifocal osteoblastic skeletal mets. MRI brain: no brain mets, skull base mets again seen Surgery consulted for ileus seen on KUB - repeat KUB gaseous distention of large bowel. Extensive osteoblastic skeletal metastasis - NG removed - tolerating low fiber diet Oncology consult reviewed 03/27 Limited options for treatment - consider androgen deprivation therapy Not candidate for chemotherapy Recommend not initiating therapy while patient is acutely ill in the hospital Goals of care discussion ongoing - Emergency contact is friend in [facility] Manuel's living conditions are poor, no central heat. 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 PT/OT recommending placement - CM following - has not been accepted to any rehab facility yet [facility] (2) Difficulty swallowing: Plan: Patient reports difficulty handling phlegm and RN reports difficulty with potassium pills - LEAD LEVEL DESIGNER consulted - VFSS showing small amount of aspiration with thin liquids - no straws, moist food, thin liquid, LEAD LEVEL DESIGNER services on discharge - oral care ACHS - aspiration precautions CXR 03/30 checked for concerns for aspiration - showed pulmonary edema, patient is not hypoxic and BPs have been soft, will defer additional diuretic (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; 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 MRI brain - no brain mets, skull mets again seen Possible candidate for Androgen deprivation therapy - patient has not decided if he would like this Medical oncology following, but can also continue to follow outpatient Patient has issues with urinary retention on admission and rouse was placed - Rouse removed with voiding trial 03/29 and was unsuccessful and Rouse was replaced - plan to keep rouse in for now, depending on length of stay could try voiding trial in a few days otherwise recommend urology follow up, especially with pt's upcoming decision about cancer treatment - continue Flomax - continue home finasteride (4) Atrial fibrillation: Plan: Rate controlled Afib with stable vitals;Previous ECGs show Afib too. Rate 84 bpm. QT 334. No acute ischemic changes Continue Eliquis ICD in place (5) H/O aortic valve replacement: Plan: S/P Valve replacement for Severe Aortic Valve stenosis Chest Xray: pulmonary vascular congestion with potential pulmonary edema. Last Echo( 08/14/22): EF 55-60%/ Grade I DD, mild concentric LVH, Prosthetic valve seated normally and functioned normal. Continue Lasix 20 mg PO QAM Plan Disposition: continued inpatient stay DVT proh: Eliquis Admission and Anticipated Discharge Date Admission Date: March 25, 2024 Subjective Patient sitting up in the chair - understands that he should not be using straws reports some ear pain for the last hour on the left side - does take daily Claritin Review of Systems Review of Systems: All systems reviewed & are unremarkable except as noted in Subjective Physical Exam Physical Exam: General: NAD, VS as above HEENT: old hard cerumen present in both ear canals, no signs of infection Resp: normal respiratory effort, diminished in bases, gurgling when clearing throat CV: afib, no murmur, Abd: normal bowel sounds, non tender, soft Extremities: Moves all extremities, no edema : rouse draining dark yellow/audrey urine Neuro: A&O x3, Skin: intact, no lesions noted Results & Data Results & Data Vital Signs (Past 12 Hours) Vital Signs Temp Pulse Resp BP Pulse Ox O2 Del Method 03/31/24 15:11 36.8 C 86 16 108/67 97 Room Air 03/31/24 15:00 Room Air 03/31/24 07:58 Room Air 03/31/24 07:09 37.0 C 74 16 105/66 95 Room Air Diagnostic Findings VSS reviewed PG Care Time/CCT Total # of Minutes Spent Total Time Spent with Patient: Total time spent is greater than 50% in coordination of care (as documented) at patient's floor/unit and/or counseling patient: Coding Level of Care Code 63305 SUB INP/OBS CARE 2/35MIN Diagnoses Generalized weakness R53.1 Difficulty swallowing R13.10 Prostate cancer C61 Chronic atrial fibrillation I48.20 Atrial fibrillation type: unspecified chronic H/O aortic valve replacement Z95.2 (4) Atrial fibrillation Atrial fibrillation type: unspecified chronic Qualified Code(s): I48.20 - Chronic atrial fibrillation, unspecified
[2024-04-01 07:29] LABS: BUN Creatinine Ratio 27.4 (10-20); Calcium 7.9 mg/dl (8.6-10.3); Creatinine Clr Calc Pharmacy 72.8 ml/min; Est GFR (African American) 95.3 ml/min; Est GFR (Non-African American) 82.2 ml/min; Potassium 3.4 mmol/L (3.5-5.1)
[2024-04-01] MEDS: POTASSIUM CHLORIDE / WTR 10 MEQ/100 ML PLCT IV SCH (09:13)
--- NOTE | 2024-04-01 14:56 | Hospitalist Progress Note ---
Date of Service April 01, 2024 Assessment & Plan (1) Generalized weakness: Plan: Patient presented to the ER on 03/25 for weakness. Patient with known metastatic pancreatic cancer, recently diagnosed. 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 nodular irregular circumferential wall thickening of the distal sigmoid and rectum w/ melania-rectal inflammation subcentimeter lymph nodes redemonstrated. Luminal narrowing of inferior rectum w/o high grade obstruction. additional wall thickening within cecum and proximal ascending colon. Prostatomegaly w/ evidence of chronic outlet obstruction. Right basilar predominant opacities suggestive of pneumonia vs aspiration pneumonitis. extensive multifocal osteoblastic skeletal mets. MRI brain: no brain mets, skull base mets again seen Surgery consulted for ileus seen on KUB - repeat KUB gaseous distention of large bowel. Extensive osteoblastic skeletal metastasis - NG removed - tolerating low fiber diet Oncology consult reviewed 03/27 Limited options for treatment - consider androgen deprivation therapy Not candidate for chemotherapy Recommend not initiating therapy while patient is acutely ill in the hospital Goals of care discussion ongoing - Emergency contact is friend in [facility] Manuel's living conditions are poor, no central heat. 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 MRI brain - no brain mets, skull mets again seen Possible candidate for Androgen deprivation therapy - patient has not decided if he would like this Medical oncology following, but can also continue to follow outpatient Patient has issues with urinary retention on admission and rouse was placed - Rouse removed with voiding trial 03/29 and was unsuccessful and Rouse was replaced - plan to keep rouse in for now, depending on length of stay could try voiding trial in a few days otherwise recommend urology follow up, especially with pt's upcoming decision about cancer treatment - continue Flomax - continue home finasteride (4) Atrial fibrillation: Plan: Rate controlled Afib with stable vitals;Previous ECGs show Afib too. Rate 84 bpm. QT 334. No acute ischemic changes Continue Eliquis ICD in place (5) H/O aortic valve replacement: Plan: S/P Valve replacement for Severe Aortic Valve stenosis Chest Xray: pulmonary vascular congestion with potential pulmonary edema. Last Echo( 08/14/22): EF 55-60%/ Grade I DD, mild concentric LVH, Prosthetic valve seated normally and functioned normal. Continue Lasix 20 mg PO QAM Plan Disposition: continued inpatient stay DVT proh: Eliquis Admission and Anticipated Discharge Date Admission Date: March 25, 2024 Subjective patient seen sitting up in bed, eating lunch. Reports pain in his lower back from the way he is positioned in bed. I encouraged him to get up to the chair for meals he states that the nursing staff has offered this to him every time but he refuses and then regrets that idea Besides that no acute complaints. Review of Systems Review of Systems: All systems reviewed & are unremarkable except as noted in Subjective Physical Exam Physical Exam: General: NAD, VS as above Resp: normal respiratory effort, diminished in bases, CV: afib, no murmur, Abd: normal bowel sounds, non tender, soft Extremities: Moves all extremities, no edema : rouse draining dark yellow/audrey urine Neuro: A&O x3, Skin: intact, no lesions noted Results & Data Results & Data Vital Signs (Past 12 Hours) Vital Signs Temp Pulse Resp BP Pulse Ox O2 Del Method 04/01/24 07:40 Room Air 04/01/24 07:01 37.2 C 63 16 114/69 96 Room Air Laboratory Results BMP reviewed PG Care Time/CCT Total # of Minutes Spent Total Time Spent with Patient: Total time spent is greater than 50% in coordination of care (as documented) at patient's floor/unit and/or counseling patient: Coding Level of Care Code 97946 SUB INP/OBS CARE 2/35MIN Diagnoses Generalized weakness R53.1 Difficulty swallowing R13.10 Prostate cancer C61 Chronic atrial fibrillation I48.20 Atrial fibrillation type: unspecified chronic H/O aortic valve replacement Z95.2 (4) Atrial fibrillation Atrial fibrillation type: unspecified chronic Qualified Code(s): I48.20 - Chronic atrial fibrillation, unspecified
[2024-04-01] MEDS: ASPIRIN 325 MG ECTAB PO ONE (20:44)
[2024-04-02 06:55] LABS: BUN Creatinine Ratio 32.4 (10-20); Calcium 7.8 mg/dl (8.6-10.3); Creatinine Clr Calc Pharmacy 74.8 ml/min; Est GFR (African American) 96.4 ml/min; Est GFR (Non-African American) 83.2 ml/min; Magnesium 1.7 mg/dl (1.7-2.4); Potassium 3.7 mmol/L (3.5-5.1)
--- NOTE | 2024-04-02 11:23 | Hospitalist Progress Note ---
Date of Service April 02, 2024 Assessment & Plan (1) Generalized weakness: Plan: Patient presented to the ER on 03/25 for weakness. Patient with known metastatic pancreatic cancer, recently diagnosed. 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 nodular irregular circumferential wall thickening of the distal sigmoid and rectum w/ melania-rectal inflammation subcentimeter lymph nodes redemonstrated. Luminal narrowing of inferior rectum w/o high grade obstruction. additional wall thickening within cecum and proximal ascending colon. Prostatomegaly w/ evidence of chronic outlet obstruction. Right basilar predominant opacities suggestive of pneumonia vs aspiration pneumonitis. extensive multifocal osteoblastic skeletal mets. MRI brain: no brain mets, skull base mets again seen Surgery consulted for ileus seen on KUB - repeat KUB gaseous distention of large bowel. Extensive osteoblastic skeletal metastasis - NG removed - tolerating low fiber diet Oncology consult reviewed 03/27 Limited options for treatment - consider androgen deprivation therapy Not candidate for chemotherapy Recommend not initiating therapy while patient is acutely ill in the hospital Goals of care discussion ongoing - Emergency contact is friend in [facility] Manuel's living conditions are poor, no central heat. 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 MRI brain - no brain mets, skull mets again seen Possible candidate for Androgen deprivation therapy - patient has not decided if he would like this Medical oncology following, but can also continue to follow outpatient Patient has issues with urinary retention on admission and rouse was placed - Rouse removed with voiding trial 03/29 and was unsuccessful and Rouse was replaced - plan to keep rouse in for now, depending on length of stay could try voiding trial in a few days otherwise recommend urology follow up, especially with pt's upcoming decision about cancer treatment - continue Flomax - continue home finasteride (4) Atrial fibrillation: Plan: Rate controlled Afib with stable vitals;Previous ECGs show Afib too. Rate 84 bpm. QT 334. No acute ischemic changes Continue Eliquis ICD in place (5) H/O aortic valve replacement: Plan: S/P Valve replacement for Severe Aortic Valve stenosis Chest Xray: pulmonary vascular congestion with potential pulmonary edema. Last Echo( 08/14/22): EF 55-60%/ Grade I DD, mild concentric LVH, Prosthetic valve seated normally and functioned normal. Continue Lasix 20 mg PO QAM Plan Disposition: continued inpatient stay Awaiting placement DVT proh: Eliquis Admission and Anticipated Discharge Date Admission Date: March 25, 2024 Subjective patient seen sitting up in bed. Just finished breakfast. No acute complaints. States that his back pain is much better after the dose of aspirin and that heat pad encourage incentive spirometer use Review of Systems Review of Systems: All systems reviewed & are unremarkable except as noted in Subjective Physical Exam Physical Exam: General: NAD, VS as above Resp: normal respiratory effort, diminished in bases, CV: afib, no murmur, Abd: normal bowel sounds, non tender, soft Extremities: Moves all extremities, no edema : rouse draining dark yellow/audrey urine Neuro: A&O x3, Skin: intact, no lesions noted Results & Data Results & Data Vital Signs (Past 12 Hours) Vital Signs Temp Pulse Resp BP Pulse Ox O2 Del Method 04/02/24 07:43 98.4 F 77 17 108/63 94 Room Air Laboratory Results chemistry reviewed PG Care Time/CCT Total # of Minutes Spent Total Time Spent with Patient: Total time spent is greater than 50% in coordination of care (as documented) at patient's floor/unit and/or counseling patient: Coding Level of Care Code 97508 SUB INP/OBS CARE 2/35MIN Diagnoses Generalized weakness R53.1 Difficulty swallowing R13.10 Prostate cancer C61 Chronic atrial fibrillation I48.20 Atrial fibrillation type: unspecified chronic H/O aortic valve replacement Z95.2 (4) Atrial fibrillation Atrial fibrillation type: unspecified chronic Qualified Code(s): I48.20 - Chronic atrial fibrillation, unspecified
[2024-04-02] MEDS: SODIUM CHLORIDE 0.65% NA SOLN 45 ML (OCEAN) ONE (13:27)
[2024-04-03] MEDS: MoRPHine SULFATE 2 MG/ML CARP IV ONE (02:59)
[2024-04-03] MEDS: cefTRIAXone SODIUM 2,000 MG/50 ML BAG IV SCH (08:54)
[2024-04-03] MEDS: oxyCODONE HCL IR 5 MG TAB (IMMEDIATE RELEASE) PO PRN (09:11)
--- NOTE | 2024-04-03 12:44 | Hospitalist Progress Note ---
Date of Service April 03, 2024 Assessment & Plan (1) Generalized weakness: Plan: Patient presented to the ER on 03/25 for weakness. Patient with known metastatic pancreatic cancer, recently diagnosed. 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 nodular irregular circumferential wall thickening of the distal sigmoid and rectum w/ melania-rectal inflammation subcentimeter lymph nodes redemonstrated. Luminal narrowing of inferior rectum w/o high grade obstruction. additional wall thickening within cecum and proximal ascending colon. Prostatomegaly w/ evidence of chronic outlet obstruction. Right basilar predominant opacities suggestive of pneumonia vs aspiration pneumonitis. extensive multifocal osteoblastic skeletal mets. MRI brain: no brain mets, skull base mets again seen Surgery consulted for ileus seen on KUB - repeat KUB gaseous distention of large bowel. Extensive osteoblastic skeletal metastasis - NG removed - tolerating low fiber diet Oncology consult Limited options for treatment - consider androgen deprivation therapy - patient has still not decided, has more questions for onc Not candidate for chemotherapy Recommend not initiating therapy while patient is acutely ill in the hospital Goals of care discussion ongoing - Emergency contact is friend in [facility] Manuel's living conditions are poor, no central heat. 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 PT/OT recommending placement - CM following - has not been accepted to any rehab facility yet oxycodone for leg pain (2) Difficulty swallowing: Plan: Patient reports difficulty handling phlegm and RN reports difficulty with potassium pills - MUSIC PUBLICIST consulted - VFSS showing small amount of aspiration with thin liquids - no straws, moist food, thin liquid, MUSIC PUBLICIST services on discharge - oral care ACHS - aspiration precautions - up to chair for meals CXR 03/30 checked for concerns for aspiration - showed pulmonary edema, patient is not hypoxic and BPs have been soft, will defer additional diuretic (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; 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 MRI brain - no brain mets, skull mets again seen Possible candidate for Androgen deprivation therapy - patient has not decided if he would like this Medical oncology following, but can also continue to follow outpatient Patient has issues with urinary retention on admission and rouse was placed - Rouse removed with voiding trial 03/29 and was unsuccessful and Rouse was replaced - plan to keep rouse in for now, depending on length of stay could try voiding trial in a few days otherwise recommend urology follow up, especially with pt's upcoming decision about cancer treatment - continue Flomax - continue home finasteride UC 04/02: GNB - ceftriaxone started -consider voiding trial in a few days (4) Atrial fibrillation: Plan: Rate controlled Afib with stable vitals;Previous ECGs show Afib too. Rate 84 bpm. QT 334. No acute ischemic changes Continue Eliquis ICD in place (5) H/O aortic valve replacement: Plan: S/P Valve replacement for Severe Aortic Valve stenosis Chest Xray: pulmonary vascular congestion with potential pulmonary edema. Last Echo( 08/14/22): EF 55-60%/ Grade I DD, mild concentric LVH, Prosthetic valve seated normally and functioned normal. Continue Lasix 20 mg PO QAM Plan Disposition: continued inpatient stay Awaiting placement DVT proh: Eliquis Admission and Anticipated Discharge Date Admission Date: March 25, 2024 Subjective Patient seen sitting up in bed, just finished breakfast. Reports sharp pain in right leg that comes and goes, responded well to morphine overnight. Discussed UTI - asymptomatic encouraged out of bed to chair Discussed that if he is not going to pursue treatment for cancer we can help get him connected with other services Review of Systems Review of Systems: All systems reviewed & are unremarkable except as noted in Subjective Physical Exam Physical Exam: General: NAD, VS as above Resp: normal respiratory effort, diminished in bases, CV: afib, no murmur, Abd: normal bowel sounds, non tender, soft Extremities: Moves all extremities, no edema. no calf tenderness. no erythema. pain mainly in right thigh : rouse draining dark yellow/audrey urine Neuro: A&O x3, Skin: intact, no lesions noted Results & Data Results & Data Vital Signs (Past 12 Hours) Vital Signs Temp Pulse Resp BP BP Pulse Ox O2 Del Method 04/03/24 09:25 98.6 F 04/03/24 07:20 Room Air 04/03/24 07:01 99.9 F H 82 16 132/64 93 Room Air 04/03/24 02:38 78 20 138/85 97 Room Air Laboratory Results Urine culture reviewed PG Care Time/CCT Total # of Minutes Spent Total Time Spent with Patient: Total time spent is greater than 50% in coordination of care (as documented) at patient's floor/unit and/or counseling patient: Coding Level of Care Code 59975 SUB INP/OBS CARE 350MIN Diagnoses Generalized weakness R53.1 Difficulty swallowing R13.10 Prostate cancer C61 Chronic atrial fibrillation I48.20 Atrial fibrillation type: unspecified chronic H/O aortic valve replacement Z95.2 (4) Atrial fibrillation Atrial fibrillation type: unspecified chronic Qualified Code(s): I48.20 - Chronic atrial fibrillation, unspecified
[2024-04-04 06:17] LABS: Basophils # (auto) 0.02 K/uL (0.00-0.20); Basophils % (auto) 0.2 %; Eosinophils # (auto) 0.09 K/uL (0.00-0.50); Eosinophils % (auto) 1.1 %; Hematocrit (blood only) 30.3 % (42.0-52.0); Hemoglobin 9.8 g/dl (14.0-18.0); Immature Granulocytes # (auto) 0.13 K/uL (0.01-0.20); Immature Granulocytes % (auto) 1.5 %; Lymphocytes # (auto) 1.21 K/uL (1.20-3.40); Lymphocytes % (auto) 14.4 %; Mean Corpuscular Hemoglobin 31.2 pg (25.0-34.0); Mean Corpuscular Hgb Conc 32.3 g/dL (32.0-36.0); Mean Corpuscular Volume 96.5 fL (80.0-100.0); Mean Platelet Volume 9.4 fL (9.4-12.4); Monocytes # (auto) 0.72 K/uL (0.11-0.59); Monocytes % (auto) 8.5 %; Neutrophils # (auto) 6.26 K/uL (1.40-6.50); Neutrophils % (auto) 74.3 %; Platelet Count 177 K/uL (130-400); RDW Coefficient of Variation 15.7 % (11.5-14.5); RDW Standard Deviation 55.6 fL (36.4-46.3); Red Blood Count 3.14 M/uL (4.70-6.10); White Blood Count 8.43 K/ul (4.8-10.8)
[2024-04-04 06:42] LABS: BUN Creatinine Ratio 39.2 (10-20); Calcium 7.9 mg/dl (8.6-10.3); Creatinine Clr Calc Pharmacy 67.2 ml/min; Est GFR (African American) 92.3 ml/min; Est GFR (Non-African American) 79.6 ml/min; Potassium 3.7 mmol/L (3.5-5.1)
--- NOTE | 2024-04-04 11:42 | Hospitalist Progress Note ---
Date of Service April 04, 2024 Assessment & Plan (1) Generalized weakness: Plan: Patient presented to the ER on 03/25 for weakness. Patient with known metastatic pancreatic cancer, recently diagnosed. 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 nodular irregular circumferential wall thickening of the distal sigmoid and rectum w/ melania-rectal inflammation subcentimeter lymph nodes redemonstrated. Luminal narrowing of inferior rectum w/o high grade obstruction. additional wall thickening within cecum and proximal ascending colon. Prostatomegaly w/ evidence of chronic outlet obstruction. Right basilar predominant opacities suggestive of pneumonia vs aspiration pneumonitis. extensive multifocal osteoblastic skeletal mets. MRI brain: no brain mets, skull base mets again seen Surgery consulted for ileus seen on KUB - repeat KUB gaseous distention of large bowel. Extensive osteoblastic skeletal metastasis - NG removed - tolerating low fiber diet Oncology consult Limited options for treatment - consider androgen deprivation therapy Not candidate for chemotherapy Recommend not initiating therapy while patient is acutely ill in the hospital Oncology saw patient 04/04 - patient still unsure of his decision. Goals of care discussion ongoing - Emergency contact is friend in [facility] Manuel's living conditions are poor, no central heat. 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 MRI brain - no brain mets, skull mets again seen Possible candidate for Androgen deprivation therapy - patient has not decided if he would like this Medical oncology following, but can also continue to follow outpatient Patient has issues with urinary retention on admission and rouse was placed - Rouse removed with voiding trial 03/29 and was unsuccessful and Rouse was replaced - plan to keep rouse in for now, depending on length of stay could try voiding trial in a few days otherwise recommend urology follow up, especially with pt's upcoming decision about cancer treatment - continue Flomax - continue home finasteride UC 04/02: GNB - ceftriaxone started -consider voiding trial in a few days (4) Atrial fibrillation: Plan: Rate controlled Afib with stable vitals;Previous ECGs show Afib too. Rate 84 bpm. QT 334. No acute ischemic changes Continue Eliquis ICD in place (5) H/O aortic valve replacement: Plan: S/P Valve replacement for Severe Aortic Valve stenosis Chest Xray: pulmonary vascular congestion with potential pulmonary edema. Last Echo( 08/14/22): EF 55-60%/ Grade I DD, mild concentric LVH, Prosthetic valve seated normally and functioned normal. Continue Lasix 20 mg PO QAM Plan Disposition: continued inpatient stay Awaiting placement DVT proh: Eliquis Admission and Anticipated Discharge Date Admission Date: March 25, 2024 Subjective Patient seen and examined this morning. Patient was complaining of feeling tired and leg pain. He reports he still has not made a decision whether he would like to move forward with treatment. States he has a lot of questions that remain unanswered. Attempted to help patient answer his questions and concerns. Patient agreeable to meet with palliative care. Denied any additional complaints. Physical Exam 2 Physical Exam: General: NAD, VS as above Resp: normal respiratory effort, diminished in bases, CV: afib, no murmur, Abd: normal bowel sounds, non tender, soft Extremities: Moves all extremities, no edema. no calf tenderness. no erythema. pain mainly in right thigh : rouse draining dark yellow/audrey urine Neuro: A&O x3, Skin: intact, no lesions noted Results & Data Results & Data Vital Signs (Past 12 Hours) Vital Signs Temp Pulse Resp BP Pulse Ox O2 Del Method 04/04/24 07:32 36.9 C 60 18 100/60 98 Room Air 04/04/24 07:16 Room Air Laboratory Results 04/04/24 05:40 04/04/24 05:40 PG Care Time/CCT Total # of Minutes Spent Total Time Spent with Patient: Total time spent is greater than 50% in coordination of care (as documented) at patient's floor/unit and/or counseling patient: Coding Level of Care Code 13067 SUB INP/OBS CARE 2/35MIN Diagnoses Generalized weakness R53.1 Difficulty swallowing R13.10 Prostate cancer C61 Chronic atrial fibrillation I48.20 Atrial fibrillation type: unspecified chronic H/O aortic valve replacement Z95.2 (4) Atrial fibrillation Atrial fibrillation type: unspecified chronic Qualified Code(s): I48.20 - Chronic atrial fibrillation, unspecified
[2024-04-04 19:57] VITALS: RESP 18
[2024-04-05 07:02] LABS: Hematocrit (blood only) 30.9 % (42.0-52.0); Hemoglobin 9.8 g/dl (14.0-18.0); Mean Corpuscular Hemoglobin 30.6 pg (25.0-34.0); Mean Corpuscular Hgb Conc 31.7 g/dL (32.0-36.0); Mean Corpuscular Volume 96.6 fL (80.0-100.0); Mean Platelet Volume 9.3 fL (9.4-12.4); Platelet Count 211 K/uL (130-400); RDW Coefficient of Variation 15.2 % (11.5-14.5); RDW Standard Deviation 54.5 fL (36.4-46.3); White Blood Count 9.12 K/ul (4.8-10.8)
[2024-04-05 07:22] LABS: BUN Creatinine Ratio 37.7 (10-20); Calcium 7.9 mg/dl (8.6-10.3); Est GFR (African American) 93.2 ml/min; Est GFR (Non-African American) 80.5 ml/min; Potassium 3.7 mmol/L (3.5-5.1)
--- NOTE | 2024-04-05 12:48 | Hospitalist Progress Note ---
Date of Service April 05, 2024 Assessment & Plan (1) Generalized weakness: Plan: Patient presented to the ER on 03/25 for weakness. Patient with known metastatic pancreatic cancer, recently diagnosed. 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 nodular irregular circumferential wall thickening of the distal sigmoid and rectum w/ melania-rectal inflammation subcentimeter lymph nodes redemonstrated. Luminal narrowing of inferior rectum w/o high grade obstruction. additional wall thickening within cecum and proximal ascending colon. Prostatomegaly w/ evidence of chronic outlet obstruction. Right basilar predominant opacities suggestive of pneumonia vs aspiration pneumonitis. extensive multifocal osteoblastic skeletal mets. MRI brain: no brain mets, skull base mets again seen Surgery consulted for ileus seen on KUB - repeat KUB gaseous distention of large bowel. Extensive osteoblastic skeletal metastasis - NG removed - tolerating low fiber diet Oncology consult Limited options for treatment - consider androgen deprivation therapy Not candidate for chemotherapy Recommend not initiating therapy while patient is acutely ill in the hospital Oncology saw patient 04/04 - patient still unsure of his decision. Goals of care discussion ongoing - Emergency contact is friend in [facility] Manuel's living conditions are poor, no central heat. 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 MRI brain - no brain mets, skull mets again seen Possible candidate for Androgen deprivation therapy - patient has not decided if he would like this Medical oncology following, but can also continue to follow outpatient Patient has issues with urinary retention on admission and rouse was placed - Rouse removed with voiding trial 03/29 and was unsuccessful and Rouse was replaced - plan to keep rouse in for now, depending on length of stay could try voiding trial in a few days otherwise recommend urology follow up, especially with pt's upcoming decision about cancer treatment - continue Flomax - continue home finasteride 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 Rate 84 bpm. QT 334. No acute ischemic changes Continue Eliquis ICD in place (5) H/O aortic valve replacement: Plan: S/P Valve replacement for Severe Aortic Valve stenosis Chest Xray: pulmonary vascular congestion with potential pulmonary edema. Last Echo( 08/14/22): EF 55-60%/ Grade I DD, mild concentric LVH, Prosthetic valve seated normally and functioned normal. Continue Lasix 20 mg PO QAM Plan Disposition: continued inpatient stay Awaiting placement DVT proh: Eliquis Admission and Anticipated Discharge Date Admission Date: March 25, 2024 Subjective Patient seen and examined this morning. Patient has erythematous small red circles on back. Denies any itching to the area. Patient met with palliative care today. He was sitting in his chair. Reported he did not enjoy his breakfast due to his selection he chose but denied any additional complaints. Physical Exam 2 Physical Exam: General: NAD, VS as above Resp: normal respiratory effort, diminished in bases, CV: afib, no murmur, Abd: normal bowel sounds, non tender, soft Extremities: Moves all extremities, no edema. no calf tenderness. no erythema. pain mainly in right thigh : rouse draining dark yellow/audrey urine Neuro: A&O x3, Skin: intact, scattered erythematous circles on back. Results & Data Results & Data Vital Signs (Past 12 Hours) Vital Signs Temp Pulse Resp BP Pulse Ox O2 Del Method 04/05/24 07:03 36.6 C 77 18 153/74 H 96 Room Air Laboratory Results 04/05/24 06:13 04/05/24 06:13 PG Care Time/CCT Total # of Minutes Spent Total Time Spent with Patient: Total time spent is greater than 50% in coordination of care (as documented) at patient's floor/unit and/or counseling patient: Coding Level of Care Code 69498 SUB INP/OBS CARE 2/35MIN Diagnoses Generalized weakness R53.1 Difficulty swallowing R13.10 Prostate cancer C61 Chronic atrial fibrillation I48.20 Atrial fibrillation type: unspecified chronic H/O aortic valve replacement Z95.2 (4) Atrial fibrillation Atrial fibrillation type: unspecified chronic Qualified Code(s): I48.20 - Chronic atrial fibrillation, unspecified
--- NOTE | 2024-04-05 18:38 | Palliative Care Consultation ---
Date of Consultation April 05, 2024 Assessment & Plan (1) Cancer related pain: tolerating current regimen (2) Dyspnea and respiratory abnormalities: (3) Generalized weakness: (4) Constipation: (5) Advanced care planning/counseling discussion: 60 min face to face with pt at bedside clinical issues reviewed very tangential and easily distracted, it is challenging to keep him focused on discussion points States he has 3 manuscripts to finish States he knows he needs to hire a cleaning service and someone to declutter his home States he has been in touch with local [employer] Tells me he understands why chemo will not be of help and adds he does not want anything too risky that might make him too weak to finish his academic work. He is interested in learning more about the hormone tx option He did not seem interested in hospice but would like more help at home VNS may be of benefit if going home + home PT but he tells me he might go to a rehab then return home but has not made the final choice bc he isn't sure he can work on his writing while at rehab (6) Social isolation: (7) Palliative care by specialist: Introduced Palliative Medicine and explained our role in patient's care. Patient and/or family were receptive to palliative services for goals of care discussions. Reviewed we are different from hospice, a home health nurse visiting service. (8) Prostate cancer metastatic to bone: Plan As above Thank you for allowing us to participate in the ongoing care of this patient. Please page with any additional concerns. 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 Admitted with weakness, +ileus on KUB, treated conservatively and the NGT now removed, Tolerating low fiber diet. He is not a candidate for chemotherapy due to poor PS and comorbidities and adv age He has been offered the option of androgen deprivation but tells me he does not understand this and what it may or may not do A close friend has shared concerns for his safety at home - lives alone, crowded conditions/?hoarding, no heat, no help in the home. Pt tells me he has 3 active manuscripts underway and these are important to him to finish before he dies. He is aspiration thin liquids He has occ spasmodic pain in low abd/suprapubic with some spasmodic radiation into his left left. He states this will occasionally move to the right leg Breathing labored at times for now some relief with evening opioid at bedtime Allergies Allergy/AdvReac Type Severity Reaction Status Date / Time No Known Drug Allergies Allergy Unknown Unknown Verified 03/25/24 18:08 Home Medications Medication Instructions Recorded Confirmed Type docusate sodium 100 mg capsule 100 mg PO DAILY #30 caps 12/03/22 03/25/24 Rx loratadine 10 mg tablet 10 mg PO DAILY #90 tabs 05/26/23 03/25/24 Rx apixaban 5 mg tablet (Eliquis) 5 mg PO BID #180 tabs 06/29/23 03/25/24 Rx finasteride 5 mg tablet 5 mg PO DAILY #90 tabs 10/06/23 03/25/24 Rx mecobalamin (vitamin B12) 2,500 2,500 mcg PO DAILY #90 tabs 01/28/24 03/25/24 Rx mcg chewable tablet amoxicillin 500 mg capsule 2,000 mg PO UD 02/09/24 03/25/24 History atorvastatin 20 mg tablet (Lipitor) 20 mg PO DAILY 02/09/24 03/25/24 History Patient History Medical History Amaurosis fugax of right eye Unsatisfactory living conditions Atrial fibrillation, controlled Sexual dysfunction Sensorineural hearing loss (SNHL) of both ears Hyperlipidemia BPH (benign prostatic hyperplasia) Severe aortic stenosis (~2007) Generalized osteoarthritis Colitis Surgical History Status post placement of cardiac pacemaker History of local excision of skin lesion History of colonoscopy S/P aortic valve replacement (~2007) Family History Unknown No pertinent family history Other No family history of allergies No family history of bleeding disorder Denies family history of Hearing loss Heart disease Cancer Hypertension Stroke Asthma Social History Smoking Status: Never smoker Second Hand Exposure: No; Do You Dip or Chew Tobacco: No; Tobacco Cessation Education Requested by Patient: No Hx Alcohol Use: Yes Alcohol type: wine and hard liquor Alcohol Intake Frequency: 4 or More x per/Week Alcohol Intake Frequency Comment: 2-3 drinks per day with a meal Hx Substance Use: No Preferred Language: Occitan Communication Ability: Effective Visual Impairment: Limited Hearing Ability: Hard of Hearing 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: No Beliefs That Will Affect Care: None marital status: Single Current Living Situation: Alone current occupational status: retired How many Children do You have: 0 Other Information That Helps Us Care for You: No Feels Safe at Home: Yes and No Is there a partner from a previous relationship who is making you feel unsafe now?: No Any Concerns about Your Family Situation: No Safety Concerns: Afraid for Self Childhood Exposure to Second-Hand Smoke: No Diet: regular caffeine: Yes (drinks coffee or tea daily ) Dental Care, Regularly: Yes Physical Activity Frequency: Does not Exercise Seatbelt Use: always Sunscreen Use: Yes Assistive Devices: Cane, Glasses, Hearing Aid - Bilateral and Walker Review of Systems Review of Systems: All systems reviewed & are unremarkable except as noted in Subjective Physical Exam Physical Exam: Frail, disheveled elderly male NAD Bitemp wasting PERRLA dentition poor shotty anterior adenopathy resp effort WAL at rest lungs mildy diminished overall, few crackles S1S1, no gross JVD Abd non tender, mild distension, BS decreased Gen weakness Skin pale, cool to touch No overt c/c/e Alert and awake, very conversant/verbose/tangential/rambling/easily distracted Results & Data Vital Signs (Past 12 Hours) Vital Signs Temp Pulse Resp BP Pulse Ox O2 Del Method 04/05/24 15:30 36.6 C 67 18 98/61 L 97 Room Air 04/05/24 07:50 Room Air 04/05/24 07:03 36.6 C 77 18 153/74 H 96 Room Air Laboratory Results 04/05/24 04/04/24 04/02/24 Range/Units 06:13 05:40 05:35 WBC 9.12 8.43 (4.8-10.8) K/ul RBC 3.20 L 3.14 L (4.70-6.10) M/uL Hgb 9.8 L 9.8 L (14.0-18.0) g/dl Hct 30.9 L 30.3 L (42.0-52.0) % MCV 96.6 96.5 (80.0-100.0) fL MCH 30.6 31.2 (25.0-34.0) pg MCHC 31.7 L 32.3 (32.0-36.0) g/dL RDW Std Deviation 54.5 H 55.6 H (36.4-46.3) fL RDW Coeff of Ruth 15.2 H 15.7 H (11.5-14.5) % Plt Count 211 177 (130-400) K/uL MPV 9.3 L 9.4 (9.4-12.4) fL Immature Gran % (Auto) 1.5 % Neut % (Auto) 74.3 % Lymph % (Auto) 14.4 % Converse % (Auto) 8.5 % Eos % (Auto) 1.1 % Baso % (Auto) 0.2 % Neut # (Auto) 6.26 (1.40-6.50) K/uL Lymph # (Auto) 1.21 (1.20-3.40) K/uL Converse # (Auto) 0.72 H (0.11-0.59) K/uL Eos # (Auto) 0.09 (0.00-0.50) K/uL Baso # (Auto) 0.02 (0.00-0.20) K/uL Immature Gran # (Auto) 0.13 (0.01-0.20) K/uL Sodium 135 L 136 136 (136-145) mmol/L Potassium 3.7 3.7 3.7 (3.5-5.1) mmol/L Chloride 103 105 104 (98-107) mmol/L Carbon Dioxide 25 26 26 (21-32) mmol/L Anion Gap 7 5 6 (3-11) BUN 29 H 31 H 23 (6-23) mg/dl Creatinine 0.77 0.79 0.71 (0.6-1.4) mg/dl Est Cr Clr Drug Dosing 69.0 67.2 74.8 ml/min Est GFR ( Amer) 93.2 92.3 96.4 ml/min Est GFR (Non-Af Amer) 80.5 79.6 83.2 ml/min BUN/Creatinine Ratio 37.7 H 39.2 H 32.4 H (10-20) Glucose 106 H 108 H 131 H (70-99(Fasting)) mg/dl Calcium 7.9 L 7.9 L 7.8 L (8.6-10.3) mg/dl Magnesium 1.7 (1.7-2.4) mg/dl 04/01/24 03/30/24 Range/Units 06:01 08:13 WBC 6.60 (4.8-10.8) K/ul RBC 3.52 L (4.70-6.10) M/uL Hgb 10.7 L (14.0-18.0) g/dl Hct 33.8 L (42.0-52.0) % MCV 96.0 (80.0-100.0) fL MCH 30.4 (25.0-34.0) pg MCHC 31.7 L (32.0-36.0) g/dL RDW Std Deviation 52.6 H (36.4-46.3) fL RDW Coeff of Ruth 14.9 H (11.5-14.5) % Plt Count 140 (130-400) K/uL MPV 9.4 (9.4-12.4) fL Immature Gran % (Auto) 1.1 % Neut % (Auto) 74.5 % Lymph % (Auto) 13.3 % Converse % (Auto) 9.5 % Eos % (Auto) 1.1 % Baso % (Auto) 0.5 % Neut # (Auto) 4.92 (1.40-6.50) K/uL Lymph # (Auto) 0.88 L (1.20-3.40) K/uL Converse # (Auto) 0.63 H (0.11-0.59) K/uL Eos # (Auto) 0.07 (0.00-0.50) K/uL Baso # (Auto) 0.03 (0.00-0.20) K/uL Immature Gran # (Auto) 0.07 (0.01-0.20) K/uL Sodium 137 137 (136-145) mmol/L Potassium 3.4 L 3.3 L (3.5-5.1) mmol/L Chloride 103 104 (98-107) mmol/L Carbon Dioxide 28 27 (21-32) mmol/L Anion Gap 6 6 (3-11) BUN 20 29 H (6-23) mg/dl Creatinine 0.73 0.74 (0.6-1.4) mg/dl Est Cr Clr Drug Dosing 72.8 71.8 ml/min Est GFR ( Amer) 95.3 94.8 ml/min Est GFR (Non-Af Amer) 82.2 81.8 ml/min BUN/Creatinine Ratio 27.4 H 39.2 H (10-20) Glucose 128 H 130 H (70-99(Fasting)) mg/dl Calcium 7.9 L 7.5 L (8.6-10.3) mg/dl Magnesium 1.9 (1.7-2.4) mg/dl Diagnostic Findings Laboratory Results WBC 9.12 K/ul (4.8-10.8) 04/05/24 06:13 RBC 3.20 M/uL (4.70-6.10) L 04/05/24 06:13 Hgb 9.8 g/dl (14.0-18.0) L 04/05/24 06:13 Hct 30.9 % (42.0-52.0) L 04/05/24 06:13 MCV 96.6 fL (80.0-100.0) 04/05/24 06:13 MCH 30.6 pg (25.0-34.0) 04/05/24 06:13 MCHC 31.7 g/dL (32.0-36.0) L 04/05/24 06:13 RDW Std Deviation 54.5 fL (36.4-46.3) H 04/05/24 06:13 RDW Coeff of Ruth 15.2 % (11.5-14.5) H 04/05/24 06:13 Plt Count 211 K/uL (130-400) 04/05/24 06:13 MPV 9.3 fL (9.4-12.4) L 04/05/24 06:13 Immature Gran % (Auto) 1.5 % 04/04/24 05:40 Neut % (Auto) 74.3 % 04/04/24 05:40 Lymph % (Auto) 14.4 % 04/04/24 05:40 Converse % (Auto) 8.5 % 04/04/24 05:40 Eos % (Auto) 1.1 % 04/04/24 05:40 Baso % (Auto) 0.2 % 04/04/24 05:40 Neut # (Auto) 6.26 K/uL (1.40-6.50) 04/04/24 05:40 Lymph # (Auto) 1.21 K/uL (1.20-3.40) 04/04/24 05:40 Converse # (Auto) 0.72 K/uL (0.11-0.59) H 04/04/24 05:40 Eos # (Auto) 0.09 K/uL (0.00-0.50) 04/04/24 05:40 Baso # (Auto) 0.02 K/uL (0.00-0.20) 04/04/24 05:40 Immature Gran # (Auto) 0.13 K/uL (0.01-0.20) 04/04/24 05:40 PT 12.9 Seconds (9.0-12.0) H 03/25/24 15:59 INR 1.2 (0.9-1.1) H 03/25/24 15:59 Sodium 135 mmol/L (136-145) L 04/05/24 06:13 Potassium 3.7 mmol/L (3.5-5.1) 04/05/24 06:13 Chloride 103 mmol/L (98-107) 04/05/24 06:13 Carbon Dioxide 25 mmol/L (21-32) 04/05/24 06:13 Anion Gap 7 (3-11) 04/05/24 06:13 BUN 29 mg/dl (6-23) H 04/05/24 06:13 Creatinine 0.77 mg/dl (0.6-1.4) 04/05/24 06:13 Est Cr Clr Drug Dosing 69.0 ml/min 04/05/24 06:13 Est GFR ( Amer) 93.2 ml/min 04/05/24 06:13 Est GFR (Non-Af Amer) 80.5 ml/min 04/05/24 06:13 BUN/Creatinine Ratio 37.7 (10-20) H 04/05/24 06:13 Glucose 106 mg/dl (70-99(Fasting)) H 04/05/24 06:13 Lactate 1.3 mmol/L (0.4-2.0) 03/25/24 15:59 Calcium 7.9 mg/dl (8.6-10.3) L 04/05/24 06:13 Magnesium 1.7 mg/dl (1.7-2.4) 04/02/24 05:35 Total Bilirubin 1.0 mg/dl (0.2-1.0) 03/25/24 15:59 AST 21 U/L (13-39) 03/25/24 15:59 ALT 10 U/L (7-52) 03/25/24 15:59 Alkaline Phosphatase 530 U/L (34-104) H 03/25/24 15:59 Troponin I High Sens 11.2 pg/ml (0-20) 03/25/24 15:59 B-Natriuretic Peptide 227 pg/ml (0-100) H 03/28/24 06:21 Total Protein 6.5 gm/dl (6.0-8.3) 03/25/24 15:59 Albumin 4.1 gm/dl (3.4-5.0) 03/25/24 15:59 Globulin 2.4 gm/dl (2.5-4.0) L 03/25/24 15:59 Albumin/Globulin Ratio 1.7 (0.9-2) 03/25/24 15:59 Procalcitonin 0.06 ng/ml (0-0.5) 03/25/24 15:59 TSH 1.406 uIu/ml (0.300-4.500) 03/25/24 15:59 Urine Color Yellow 03/25/24 16:08 Urine Appearance Clear (Clear) 03/25/24 16:08 Urine pH 8.0 (4.5-7.5) H 03/25/24 16:08 Ur Specific [place] 1.018 (1.000-1.030) 03/25/24 16:08 Urine Protein 1+ (Negative) H 03/25/24 16:08 Urine Glucose (UA) Negative (Negative) 03/25/24 16:08 Urine Ketones Negative (Negative) 03/25/24 16:08 Urine Blood Negative (Negative) 03/25/24 16:08 Urine Nitrite Negative (Negative) 03/25/24 16:08 Urine Bilirubin Negative (Negative) 03/25/24 16:08 Urine Urobilinogen Negative (Negative) 03/25/24 16:08 Ur Leukocyte Esterase Negative (Negative) 03/25/24 16:08 Urine WBC (Auto) 0-5 /hpf (0-5) 03/25/24 16:08 Urine RBC (Auto) 0-2 /hpf (0-2) 03/25/24 16:08 U Hyaline Cast (Auto) 0-2 /lpf (0-2) 03/25/24 16:08 U Epithel Cells (Auto) 0-2 /hpf (0-2) 03/25/24 16:08 Urine Bacteria (Auto) None Seen (None Seen) 03/25/24 16:08 Stl C. diff Tox B Gene Negative Cdiff Gene (Neg) 03/29/24 14:10 Adenovirus (PCR) Not Detected (NotDetected) 03/25/24 16:08 B. pertussis DNA (PCR) Not Detected (NotDetected) 03/25/24 16:08 B.parapertussis DNA PCR Not Detected (NotDetected) 03/25/24 16:08 C. pneumoniae DNA (PCR) Not Detected (NotDetected) 03/25/24 16:08 Coronavirus OC43 (PCR) Not Detected (NotDetected) 03/25/24 16:08 Coronavirus HKU1 (PCR) Not Detected (NotDetected) 03/25/24 16:08 Coronavirus 229E (PCR) Not Detected (NotDetected) 03/25/24 16:08 SARS-CoV-2 (PCR) Not Detected (NotDetected) 03/25/24 16:08 Coronavirus NL63 (PCR) Not Detected (NotDetected) 03/25/24 16:08 Human Metapneumovir PCR Not Detected (NotDetected) 03/25/24 16:08 Influenza Type A (PCR) Not Detected (NotDetected) 03/25/24 16:08 Influenza Type B (PCR) Not Detected (NotDetected) 03/25/24 16:08 M. pneumoniae (PCR) Not Detected (NotDetected) 03/25/24 16:08 Parainfluenza 1 (PCR) Not Detected (NotDetected) 03/25/24 16:08 Parainfluenza 2 (PCR) Not Detected (NotDetected) 03/25/24 16:08 Parainfluenza 3 (PCR) Not Detected (NotDetected) 03/25/24 16:08 Parainfluenza 4 (PCR) Not Detected (NotDetected) 03/25/24 16:08 RSV (PCR) Not Detected (NotDetected) 03/25/24 16:08 Entero/Rhino (PCR) Not Detected (NotDetected) 03/25/24 16:[address] 03/25/24 16:37 CT SCAN OF THE BRAIN WITHOUT IV CONTRAST CLINICAL HISTORY: Generalized weakness. COMPARISON STUDY: CT of the brain dated 07/30/2023 and 05/05/2023. TECHNIQUE: Unenhanced axial CT scan of the brain is performed from the vertex to the skull base. A dose lowering technique was utilized adhering to the principles of ALARA. CT DOSE: 625.8 mGy.cm FINDINGS: Brain parenchyma: There is age-related involutional change noting [id number] subcortical and periventricular microangiopathic disease. There is no hemorrhage, mass effect, or evidence of acute territorial ischemia by CT criteria. Jaffe-white matter differentiation is preserved. No extra-axial fluid collection is seen. Ventricles, sulci, cisterns: Prominent secondary to involutional change. Intracranial vasculature: There is atherosclerotic calcification of the cavernous carotid arteries. Calvarium: The calvarium appears intact. Sclerotic lesions are seen at the skull base within the right anterior ring of C1 and the clivus. This is highly suggestive of bony metastatic disease. Sinuses and mastoids: The visualized paranasal sinuses are clear. The mastoid air cells are well pneumatized. Orbits: The bony orbits are grossly intact. IMPRESSION: 1. There is no hemorrhage, mass effect, or evidence of acute territorial ischemia by CT criteria. 2. 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 Correlate with the oncological history. ACT 112: Negative or not required by law. Electronically signed by: Warren Simms M.D. 03/25/2024 5:44 PM Abdomen/Pelvis CT 03/26/24 08:[address] WITH IV CONTRAST CT DOSE: 904.78 mGy.cm HISTORY: Acute onset abdominal pain was small bowel obstruct SBO concern, metastatic prostate cancer TECHNIQUE: Multiaxial CT images of the abdomen and pelvis were performed following the IV administration of 93 cc of Optiray, A dose lowering technique was utilized adhering to the principles of ALARA. COMPARISON STUDY: KUB of same day, CT 12/31/2023 FINDINGS: Cardiomegaly with median sternotomy. Extensive coronary artery calcifications. Partially imaged pacer leads. Perform dilation of the ascending thoracic aorta, 4.6 cm. Trace pleural effusions. Patchy right lower lobe predominant consolidative and reticular nodular opacities. There is no free air. Unremarkable spleen, pancreas and adrenal glands. Cholelithiasis. 9 mm hypodense left hepatic lobe focus on image 87 series 3 suggestive of a cyst which is unchanged. Patency of the hepatic and portal veins. There is no hydronephrosis. There are a few subcentimeter hypodensities of the kidneys which are too small to characterize, likely cysts. Urinary bladder wall thickening. Anterosuperior bladder dome diverticulum. Heterogeneously thickened prostate with calcifications redemonstrated. Atherosclerosis of the aorta. Fusiform dilation of the celiac artery measures 1.3 cm, stable from prior. Enteric tube courses in the stomach, distal tip in the gastric body. No small bowel obstruction. Pathologic nodular circumferential wall thickening of the distal sigmoid and rectum with adjacent perirectal inflammation redemonstrated. Subcentimeter perirectal lymph nodes. -Distention of the colon with moderate fecal retention. There is wall thickening of the cecum and ileocecal valve. Noninflamed appendix. Trace abdominal pelvic ascites. There is mild generalized body wall edema. Small fat and fluid filled right inguinal hernia. Extensive osteoblastic skeletal metastasis redemonstrated. No definite acute pathologic fracture identified. Mild lumbar levoscoliosis. IMPRESSION: 1. No small bowel obstruction or pneumoperitoneum. 2. Nodular irregular circumferential wall thickening of the distal sigmoid and rectum with perirectal inflammation subcentimeter lymph nodes redemonstrated. There is luminal narrowing of the inferior rectum without high-grade obstruction Correlation with endoscopy recommended to exclude malignancy. 3. Additional wall thickening noted within the cecum and proximal ascending colon with partial distention. 4. Prostatomegaly with evidence of chronic outlet obstruction. 5. Right basilar predominant opacities suggestive of pneumonia versus aspiration pneumonitis. 6. Extensive multifocal osteoblastic skeletal metastasis redemonstrated. 7. Cholelithiasis. 8. Additional findings as above. ACT 112: Negative or not required by law. The above report was generated using voice recognition software. It may contain grammatical, syntax or spelling errors. Electronically signed by: Artemio Haider M.D. 03/26/2024 10:48 AM KUB X-Ray 03/27/24 07:00 KUB HISTORY: Acute onset abdominal pain ileus COMPARISON: CT 03/26/2024 FINDINGS: Distended contrast-filled urinary bladder. Gaseous distention of the large bowel with moderate colonic fecal retention is similar to prior. No renal calculi. No ureteral calculi. No pneumoperitoneum or pneumatosis. Multifocal osteoblastic skeletal metastasis redemonstrated. Sternotomy wires are present. Distal tip of enteric tube projects over the stomach. No fracture. IMPRESSION: 1. Gaseous distention of the large bowel redemonstrated. 2. Distal tip of enteric tube projects over the gastric body. 3. Extensive osteoblastic skeletal metastasis redemonstrated. ACT 112: Negative or not required by law. The above report was generated using voice recognition software. It may contain grammatical, syntax or spelling errors. Electronically signed by: Artemio Haider M.D. 03/27/2024 10:41 AM Brain MRI 03/28/24 22:11 MRI OF THE BRAIN WITHOUT AND WITH IV CONTRAST CLINICAL HISTORY: Metastatic prostate cancer. COMPARISON STUDY: Head CT March 25, 2024. TECHNIQUE: Utilizing a 1.5 Lucy magnet and dedicated coil, multiplanar, multiecho imaging of the brain was performed pre and postcontrast administration. IV administration of 7.5 mL of Gadavist contrast was uneventful. Thin cut T1 post contrast imaging was performed. FINDINGS: There are no foci of restricted diffusion to suggest acute infarct. No acute intracranial hemorrhage, midline shift or mass effect is present. Ventricular system is unremarkable for age. Basilar cisterns are patent. There are no extra-axial collections. Flow-voids for the major intracranial vessels are present. There is no intracranial mass or pathologic enhancement. Multiple T1 hypointense lesions within the visualized portions of the cervical spine are present. There are also T1 hypointense lesions which demonstrate enhancement within the skull base. A branching enhancing focus within the right cerebellar hemisphere represents a developmental venous anomaly. This is of no significance. Mild white matter T2 hyperintense foci favor mild small vessel disease. IMPRESSION: 1. No acute intracranial findings. 2. No parenchymal metastases. 3. Multifocal marrow replacement consistent with metastatic prostate cancer within the skull base and visualized portions of the cervical spine. ACT 112: Negative or not required by law. Electronically signed by: Arcadio Purcell M.D. 03/28/2024 4:40 PM Chest X-Ray 03/30/24 06:14 XR chest 1V portable HISTORY: aspiration? COMPARISON: Chest 03/26/2024. FINDINGS: No pneumothorax. No pleural effusions. The heart remains mildly enlarged. There are poststernotomy changes and left-sided dual-chamber pacemaker. A cardiac valve prosthesis is again noted. No new focal lung consolidations. No acute fractures. Perihilar interstitial/vascular thickening consistent with mild pulmonary edema. This is similar to the prior study. IMPRESSION: Cardiomegaly with mild interstitial pulmonary edema. This is similar to the prior study. ACT 112: Negative or not required by law. Electronically signed by: Shimon Gallardo M.D. 03/30/2024 8:18 AM Videofluoroscopic Swallow 03/31/24 10:30 MODIFIED BARIUM SWALLOW CLINICAL HISTORY: r/o aspiration COMPARISON STUDY: None. FLUOROSCOPY TIME: 1.38 minutes. Ka,r: 4.93 mGy. TECHNIQUE: A modified barium swallow was performed in conjunction with Speech Pathology. The patient ingested varying consistencies of barium containing material. Video fluoroscopy was performed. FINDINGS: There was penetration without aspiration with thin liquids via spoon. Penetration was also noted with sips of thin liquids via cup. Trace tracheal aspiration was noted with sequential swallows of thin liquids. Trace tracheal aspiration was noted with sips of nectar thick liquids. Note was made of a small amount of tracheal aspiration with mildly thick liquids. No aspiration with pudding consistency was noted. There is no aspiration with cracker and pudding consistency. Significant residuals were noted within the vallecula. There was persistent small amount of tracheal aspiration with sips of thin liquids with cup despite chin. IMPRESSION: 1. Small amount of aspiration with thin liquids and nectar thick liquids, as above. 2. Significant residuals within the vallecula with several consistencies. 3. Full recommendations by Speech pathology to follow. ACT 112: Negative or not required by law. Electronically signed by: Arcadio Purcell M.D. 03/31/2024 12:37 PM PG Care Time/CCT Total # of Minutes Spent Total Time Spent with Patient: Total time spent is greater than 50% in coordination of care (as documented) at patient's floor/unit and/or counseling patient: I spent 140 minutes overall addressing this case: 20 min in medical data review/discussion with referring provider(s) and/or preparation for the visit 20 min in direct interaction with the patient/exam 60 min in Advance Care Planning/Goals of Care discussions as detailed above in note (must be >16min) 20 min in subsequent review and synthesis of assessment and plan 20 min communicating with other providers regarding the patient's case: primary team, oncology Advanced Care Planning 92380 Advanced Care Planning 30 Min 86745 Advanced Care Planning Additional 30 [place] [address] IN/OBS CONSULT LVL 5,80M (25 - SIGNIFICANT, SEPARATELY IDENTIFIABLE ) Patient Type New Medical Decision Making High Complexity Diagnoses Cancer related pain G89.3 Dyspnea and respiratory abnormalities R06.00; R06.89 Generalized weakness R53.1 Constipation K59.00 Advanced care planning/counseling discussion Z71.89 Social isolation Z60.4 Palliative care by specialist Z51.5 Prostate cancer metastatic to bone C61; C79.51 Additional Codes Advanced Care Planning - 95149 Advanced Care Planning 30 Min: 32295 Advanced Care Planning 30 Min ([id number]) Advanced Care Planning - 88271 Advanced Care Planning Additional 30 Min: 22977 Advanced Care Planning Additional 30 Min ([id number])
--- NOTE | 2024-04-06 12:28 | Hospitalist Progress Note ---
Date of Service April 06, 2024 Assessment & Plan (1) Generalized weakness: Plan: Patient presented to the ER on 03/25 for weakness. Patient with known metastatic pancreatic cancer, recently diagnosed. 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 nodular irregular circumferential wall thickening of the distal sigmoid and rectum w/ melania-rectal inflammation subcentimeter lymph nodes redemonstrated. Luminal narrowing of inferior rectum w/o high grade obstruction. additional wall thickening within cecum and proximal ascending colon. Prostatomegaly w/ evidence of chronic outlet obstruction. Right basilar predominant opacities suggestive of pneumonia vs aspiration pneumonitis. extensive multifocal osteoblastic skeletal mets. MRI brain: no brain mets, skull base mets again seen Surgery consulted for ileus seen on KUB - repeat KUB gaseous distention of large bowel. Extensive osteoblastic skeletal metastasis - NG removed - tolerating low fiber diet Oncology consult Limited options for treatment - consider androgen deprivation therapy Not candidate for chemotherapy Recommend not initiating therapy while patient is acutely ill in the hospital Oncology saw patient 04/04 - patient still unsure of his decision. Goals of care discussion ongoing - Emergency contact is friend in [facility] Manuel's living conditions are poor, no central heat. 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 PT/OT recommending placement - CM following - has not been accepted to any rehab facility yet oxycodone for leg pain Palliative care consult reviewed Patient did not seem interested in hospice but more interested in obtaining help around his home Patient would like more information on hormonal treatment for his cancer (2) Difficulty swallowing: Plan: Patient reports difficulty handling phlegm and RN reports difficulty with potassium pills - COOK ROOM SUPERVISOR consulted - VFSS showing small amount of aspiration with thin liquids - no straws, moist food, thin liquid, COOK ROOM SUPERVISOR services on discharge - oral care ACHS - aspiration precautions - up to chair for meals CXR 03/30 checked for concerns for aspiration - showed pulmonary edema, patient is not hypoxic and BPs have been soft, will defer additional diuretic (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; 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 MRI brain - no brain mets, skull mets again seen Possible candidate for Androgen deprivation therapy - patient has not decided if he would like this Medical oncology following, but can also continue to follow outpatient Patient has issues with urinary retention on admission and rouse was placed - Rouse removed with voiding trial 03/29 and was unsuccessful and Rouse was replaced - will plan for void trial 04/06 with anticipated discharge on 04/07 - continue Flomax - continue home finasteride 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 Rate 84 bpm. QT 334. No acute ischemic changes Continue Eliquis ICD in place (5) H/O aortic valve replacement: Plan: S/P Valve replacement for Severe Aortic Valve stenosis Chest Xray: pulmonary vascular congestion with potential pulmonary edema. Last Echo( 08/14/22): EF 55-60%/ Grade I DD, mild concentric LVH, Prosthetic valve seated normally and functioned normal. Continue Lasix 20 mg PO QAM Lasix held 04/06 due to hypotension, plan to resume 04/07 Plan Disposition: discharge to rehab facility 04/07 DVT proh: Eliquis Admission and Anticipated Discharge Date Admission Date: March 25, 2024 Subjective Patient seen and examined this morning. Patient denied any complaints today. He was sitting upright in his chair at time of encounter. Physical Exam Physical Exam: General: NAD, VS as above Resp: normal respiratory effort, diminished in bases, CV: afib, no murmur, Abd: normal bowel sounds, non tender, soft Extremities: Moves all extremities, no edema. no calf tenderness. no erythema. pain mainly in right thigh : rouse draining dark yellow/audrey urine Neuro: A&O x3, Skin: intact, scattered erythematous circles on back. Results & Data Results & Data Vital Signs (Past 12 Hours) Vital Signs Temp Pulse Resp BP Pulse Ox O2 Del Method 04/06/24 11:16 94/54 L 04/06/24 09:00 Room Air 04/06/24 08:42 93/57 L 04/06/24 08:42 89/53 L 04/06/24 07:05 36.8 C 66 18 102/53 L 96 Room Air PG Care Time/CCT Total # of Minutes Spent Total Time Spent with Patient: Total time spent is greater than 50% in coordination of care (as documented) at patient's floor/unit and/or counseling patient: Coding Level of Care Code 41134 SUB INP/OBS CARE 235MIN Diagnoses Generalized weakness R53.1 Difficulty swallowing R13.10 Prostate cancer C61 Chronic atrial fibrillation I48.20 Atrial fibrillation type: unspecified chronic H/O aortic valve replacement Z95.2 (4) Atrial fibrillation Atrial fibrillation type: unspecified chronic Qualified Code(s): I48.20 - Chronic atrial fibrillation, unspecified
--- NOTE | 2024-04-07 08:33 | Discharge Summary ---
Discharge Summary Date of Service April 07, 2024 Principal Dx & Hospital Course #1 = Principal Diagnosis (1) Generalized weakness: Patient presented to the ER on 03/25 for weakness. Patient with known metastatic pancreatic cancer, recently diagnosed. Respiratory biofire was negative. CXR revealed pulmonary vascular congestion w/ potential pulmonary edema. CT of head revealed osteoblastic metastatic disease at skull base. CTAP w/ IV contrast showed no SBO or pneumoperitoneum. nodular irregular circumferential wall thickening of distal sigmoid & rectum w/ melania-rectal inflammation subcentimeter lymph nodes re-demonstrated. Luminal narrowing of inferior rectum w/o high grade obstruction. additional wall thickening within cecum & proximal ascending colon. Prostatomegaly w/ evidence of chronic outlet obstruction. Right basilar predominant opacities suggestive of pneumonia vs aspiration pneumonitis. extensive multifocal osteoblastic skeletal mets. MRI was negative for brain mets but skull base mets visualized again. Surgery was also consulted early in patient's hospital stay for an ileus found on KUB. His NG tube was eventually removed and he has been tolerating a low fiber diet since. Oncology was consulted who discussed w/ the patient that there are limited options for his treatment. He is not a candidate for chemotherapy but is a candidate for androgen deprivation therapy. It was recommended to not begin treatment while patient was acutely ill. Oncology followed up on 04/04 as patient has not made a decision on whether he would like treatment vs hospice care. Patient still had not made a decision and was encouraged to follow up outpatient in the oncology office for any further questions upon discharge. Throughout patient's hospital stay, there had been ongoing discussions regarding his goals of care. Patients emergency contact from [place] did state that his living conditions are poor and he is without central heat. He lives alone with no help as well. PT/OT was consulted who recommended a rehab stay. Palliative care also saw the patient and had a lengthy discussion w/ him. Patient did not seem interested in hospice at that time but was more interested in obtaining help around his home. He had also asked for additional information regarding hormonal treatment for his cancer. 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 Patient did complain of leg pain throughout his hospital stay which was due to the bony mets from his prostate cancer. He was treated with oxycodone for this and also discharged on oxycodone 5mg PO prn q 6h. (2) Difficulty swallowing: Patient reports difficulty handling phlegm and RN reports difficulty with potassium pills. REDYE HAND was consulted and a VFSS was done which showed small amount of aspiration w/ thin liquids. Recommendations were no straws, moist food, thin liquid, and speech services on discharge. PO care ACHS. Aspiration precautions followed and patient was upright for meals. CXR was done on 03/30 that was concerning for aspiration and revealed pulmonary edema. 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 MRI was negative for brain mets but skull mets seen. Possible candidate for androgen deprivation therapy, patient is still deciding on his treatment plan. He is to follow up with medical oncology outpatient. Patient had issues w/ urinary retention on admission and a rouse had been placed. Patient had a voiding trial on 03/29 and 04/06 in which he failed and had to have a rouse re-inserted. Patient was discharged to rehab with a rouse. Recommending urology follow up as patient may require rouse catheter termite helper. He is to continue Flomax and Finasteride. He did have a urine culture on 04/02 that grew pansensitive enterobacter clocae. He was initially started on rocephin however per pharmacy/ID they had recommended against abx use since patient was asymptomatic. His catheter was exchanged on 04/04 due to this and continued monitoring for any concerning UTI symptoms. (4) Atrial fibrillation: Rate controlled Afib with stable vitals;Previous ECGs show Afib too. Rate 84 bpm. QT 334. No acute ischemic changes Continue Eliquis ICD in place (5) H/O aortic valve replacement: S/P Valve replacement for Severe Aortic Valve stenosis Chest Xray: pulmonary vascular congestion with potential pulmonary edema. Last Echo( 08/14/22): EF 55-60%/ Grade I DD, mild concentric LVH, Prosthetic valve seated normally and functioned normal. Continue Lasix 20 mg PO QAM Lasix held 04/06 due to hypotension, plan to resume 04/07 Admission HPI Per Admitting Provider Mr. Rivera is a 88 year pleasant male, retired from [employer] with past h/o Dm, HTN, Metastatic Prostrate Cancer, Alcohol use disorder, AV block. Aortic valve replacement for severe Aortic Stenosis, with S/P Cardiac Pacemaker , came to ED today for generalized weakness. He noticed he is gradually worsening from baseline function recently, however he felt very weak last night that he could not even roll out of bed. He noticed last few days has been harder and harder for him. Usually it took him 10 minutes to wake up from bed, catch his canes and start his routine. This morning he woke up at around 1: 45 am and could not get out of bed. He felt really weak and called 911 after which he was brought to ED. No h/o Fall, Trauma. He mentioned he lives in second floor of his huge house which he bought and repaired after group home. He finds difficult to walk down the stairs rather than climbing the stairs. He denies significant SOB. He mentions some mild headache which he noticed few days ago, but is not that worrisome for him. He has never been to rehab before and he is happy with his independent life until few days ago. However, now he feels like this is the right time for him to take help. He was planing to meet a person coming Thursday to hire for helper as he wanted to live as independent possible. He says otherwise he can cook fo himself, ride car and does grocery at [employer] by himself. He reads book and listens to SU everyday after breakfast. He has a history of prostate cancer and he is well aware that his cancer has spread to his bones. He endorses increased frequency of peeing mostly during night time. He has not yet decided if he is going for suggested therapy as per urologist. he says he wants to do more research before deciding. He denies any bone pain right now, recent fevers, nausea, vomiting or abdominal pain, seizure, paralysis of his limbs, diffisulty swallowing, loss of appetite, Denies any recent sick contact exposures. PMH: Reviewed Medication : reviewed Personal: Sleeps well 8-10 hours, however needs to wake up 3-4 hours for peeing Bowel movement: q week ; uses laxative sometimes Alcohol use: 2-3 drinks per day with breakfast and lunch( Drinks Vodka/ Martini /Wine) Drug and Allergy : No known so far Code status: Full code Discharge Exam General: NAD, VS as above Resp: normal respiratory effort, diminished in bases, CV: afib, no murmur, Abd: normal bowel sounds, non tender, soft Extremities: Moves all extremities, no edema. no calf tenderness. no erythema. pain mainly in right thigh : rouse draining dark yellow/audrey urine Neuro: A&O x3, Skin: intact, scattered erythematous circles on back. Discharge Plan Discharge Items Patient Disposition: Transfer Senior Living Fac Reason For Visit: WEAKNESS Discharge Diagnosis: metastatic prostate cancer Activity: As commented below Activity Comment: per rehab facility Non-emergency contact: Primary Care Provider Call non-emergency contact if: you have any medication questions, your symptoms worsen and your pain is not controlled Follow-up/Referrals: Kapil Dee, [Primary Care Provider] - Mini Claros DNP [Nurse Practitioner] - 05/12/24 9:00 am Diet: Low Fiber Addtl Attending Provider Instructions: Mr. Rivera, You were recently hospitalized for weakness which was found to be due to your metastatic prostate cancer. Please see recommendations below regarding discharge. 1. Please follow up with oncology outpatient to further decide on treatment. 2. Please follow up with palliative care outpatient. 3. We could not remove your catheter due to you retaining urine. Please follow up with urology outpatient for further care. 4. Please take Oxycodone 5mg every 6 hours for pain. 5. Please resume outpatient medications as previously prescribed. 6. New medications added to your regimen include Lasix 20mg daily and Tamsulosin 0.4mg daily. Please follow up with your PCP within 1-2 weeks of discharge. If you experience any chest pain, shortness of breath, fever, or chills please report back to the ER for further care. Sincerely, Edyta Lyon PA-C Pending Studies at Discharge: No Stand-Alone Forms: My [facility] Skilled Items Patient informed of condition?: Yes DNR: No Discharge Level of Care: Acute rehab Communicable Disease: No Discharge Prognosis: Stable Lines: None Urinary Catheter: Yes Medications and DC Order Prescriptions: New tamsulosin 0.4 mg Capsule 0.4 mg PO HS Qty: 30 0RF furosemide 20 mg Tablet 20 mg PO QAM Qty: 30 0RF oxycodone 5 mg Tablet 5 mg PO Q6H PRN (Reason: pain) Qty: 20 0RF Continued Eliquis 5 mg tablet 5 mg PO BID Qty: 180 3RF finasteride 5 mg tablet 5 mg PO DAILY Qty: 90 3RF amoxicillin 500 mg capsule 2,000 mg PO UD Patient Comments: Take 4 capsules 1 hour before dental appt Rx Instructions: Take 4 capsules 1 hour before dental appt docusate sodium 100 mg capsule 100 mg PO DAILY Qty: 30 5RF Rx Instructions: Unable to verify OTC meds at this date/time. loratadine 10 mg tablet 10 mg PO DAILY Qty: 90 1RF Rx Instructions: Unable to verify OTC meds at this date/time. mecobalamin (vitamin B12) 2,500 mcg tablet,chewable 2,500 mcg PO DAILY Qty: 90 3RF Rx Instructions: Unable to verify OTC meds at this date/time. atorvastatin [Lipitor] 20 mg tablet 20 mg PO DAILY Discharge Orders: Discharge Order (Routine); Ordered 04/07/24 Ordered By: Edyta Beaver/Other Patient Handouts: Hormone Therapy for Prostate Cancer Admission Data Admit Date/Time: 03/25/24 20:01 Attending Provider: Heriberto Monique Admit Provider: Lisa Desai Primary Care Provider: Kapil Dee Other Providers: Gadiel Bro; Ben Null; Mariano Hoffman; Sandra Mathew; [facility]; [facility]; Mini Claros Other Interventions: Discharge Summary Assessment (RN) Last Done: 04/07/24 09:34 Hospital Stay Data Consultations 03/25/24 17:53 ED Decision to Admit Stat 03/25/24 20:02 Consult Oncology Routine 03/26/24 08:31 Consult General Surgery Routine 04/04/24 11:01 Consult Palliative Care Routine Diagnostic Imagining Performed 03/25/24 16:37 CT head/brain wo con Stat 03/26/24 08:43 CT Abd and Pelvis [CT abd pelvis IV con only] Urgent 03/28/24 22:11 MR brain wo/w con Routine 03/31/24 10:30 FL video swallow Routine Pending Results Patient Have Any Pending Studies at Discharge: No Discharge Instructions Given to Patient (Per Discharging Provider) Mr. Rivera, Evelio were recently hospitalized for weakness which was found to be due to your metastatic prostate cancer. Please see recommendations below regarding discharge. 1. Please follow up with oncology outpatient to further decide on treatment. 2. Please follow up with palliative care outpatient. 3. We could not remove your catheter due to you retaining urine. Please follow up with urology outpatient for further care. 4. Please take Oxycodone 5mg every 6 hours for pain. 5. Please resume outpatient medications as previously prescribed. 6. New medications added to your regimen include Lasix 20mg daily and Tamsulosin 0.4mg daily. Please follow up with your PCP within 1-2 weeks of discharge. If you experience any chest pain, shortness of breath, fever, or chills please report back to the ER for further care. Sincerely, Edyta Lyon PA-C Supervising Physician Co-Signing Physician Notes During face to face encounter, I obtained a brief physical examination, discussed hospital stay with patient and discharge instructions with patient. I discussed discharge plan of care with LINNEA Lyon. I reviewed above note and agree with it except for the following: likely from mets from his prostate cancer. Recommend patient to followup with palliative care and oncology. Total Time Total Time Spent Total Time Spent (In Minutes): 45 Total Time Includes: Examination of the Patient, Discharge Planning and Medication Reconciliation Coding Level of Care Code 45888 INP/OBS DISCH >30 MIN Diagnoses Generalized weakness R53.1 Difficulty swallowing R13.10 Prostate cancer C61 Chronic atrial fibrillation I48.20 Atrial fibrillation type: unspecified chronic H/O aortic valve replacement Z95.2
[2024-04-07 08:40] VITALS: TEMP 98.2; O2SAT 93
[2024-04-07 09:37] VITALS: BP 124/75; PULSE 88
--- NOTE | 2024-04-08 11:27 | Coding Query ---
CODING QUERY To promote full compliance with coding requirements relating to patient care, provider participation is requested in all cases of hand washer uncertainty. Please assist us with the question(s) below: Coding Question(s): Pt admitted with general weakness due to underlying malignancy. Progress notes mention prostate cancer metastasis to bone. Documentation also mentions newly diagnosed pancreatic cancer not documented in Oncology consult.Mention in Oncology documention consideration for hormonal therapy. Please check below the phrase that describes the pancreastic cancer. Thank you ! ANNIE Smith [facility] Physician's Response(s): x the patient has Pancreatic Cancer the patient does not have Pancreatic Cancer Principal Diagnosis: "that condition established after study, to be chiefly responsible for occasioning the admission of the patient to the hospital for care." Co-Existing Principal Diagnosis: "when two or more diagnoses equally meet the criteria for principal diagnosis as determined by the circumstances of admission, diagnostic work up, and/or therapy provided, and the Alphabetic Index, Tabular List, or another coding guideline does not provide sequencing direction, any one of the diagnoses may be sequenced first." "When the physician has documented what appears to be a current diagnosis in the body of the record, but has not included the diagnosis in the final diagnostic statement, the physician should be asked whether the diagnosis should be added." (Source [facility]oding [facility] 2 QTR90. p3-4) BONNIE
== END 2024-04-07 10:25 | DRG 543 ==
LOC: ED 15:36 → 3W 20:01 → SUATTDRO 20:01 → 3W 21:40